=== PATIENT | female | born 1950 | race Caucasian/White ===

== ENCOUNTER 2023-11-19 18:49 | Emergency (ER) | payer MEDICARE, SELFPAY | END 2023-11-19 19:00 | disposition left against medical advice (07) | LOC: ANHED 19:38 | PROVIDERS: PCP Emergency Medicine | DX: K59.00 Constipation, unspecified (principal) | CPT/HCPCS: 99199 ==

== ENCOUNTER 2024-07-05 06:58 | Emergency (ER) | payer MEDICARE, OTHER, SELFPAY ==
--- OUTSIDE RECORDS SUMMARY | 2024-07-05 07:01 | XMS_ITS | Patient Health Record ---
Author Organization [facility] [employer] Address [address] [facility] [address] [place] [address] Care Team Providers Care Community Relations Director Name Role Phone Carlos Eduardo Chappell MD Primary Care Provider Jennifer Maral Agustin Unavailable [phone] Mario Cifuentes Unavailable [phone] Sukhwinder Hoffman Unavailable [phone] Allergies Allergen (clinical drug ingredient) Drug/Non Drug Allergy documented on EMR Reaction Allergy Type Onset Date Status ciprofloxacin Ciprofloxacin Unknown Drug Allergy Active metronidazole Metronidazole Unknown Drug Allergy Active Results Component Value Reference Range Notes UDT Reviewed date:04/09/2024 04:13:37 PM Interpretation: Performing Lab: Notes/Report: THC N 0 - 50 ng/ml Cocaine N 0 - 300 ng/ml Amphetamine N 0 - 1000 ng/ml Buprenorphine (BUP) N 0 - 10 ng/ml Secobarbital (Bar) N 0 - 300 ng/ml Oxazepam (BZO) N 0 - 300 ng/ml 7-ewactgznqv-0,3-viftrarm-9,3-diphenylpyrrolidine (MENA P) N 0 - 300 ng/ml Methamphetamine (MET) N 0 - 1000 ng/ml Methylenedioxymethamphetamine (MDMA) N 0 - 500 ng/ml Morphine (MOP 300/[id number]) N 0 - 300 ng/ml Methadone (MTD) N 0 - 300 ng/ml Phencyclidine (PCP) N 0 - 25 ng/ml Nortriptyline (TCA) N 0 - 1000 ng/ml Oxycodone N 0 - 300 ng/ml x N 0 - 300 ng/ml Reason For Referral Reason sleep disturbance. Diagnosis 1 Primary insomnia (F5 1.01) Referral Organization [facility] Referring Provider First Name Sukhwinder Referring Provider Last Name Yasmin Referred Provider Specialty Sleep Medici ne General Notes ChuckieRaoul chaudharitigre Sanchez 05/07 02:10:55 PM >patient wakes up feeling unrested. , has tried various medications., currently on zolpidem 10 mg HS, Melatonin 5 mg, diphenhydramine 25mg (2 capsules), Clonazepam 1 mg prn, patient reports she snores., patient reports she occasionally wakes up with headaches., YasminRaoultigre Sanchez 05/07/2024 02:15:29 PM >Note history of using temazepam and trazodone for sleep, which were not effective., Pamela Leslie 05/11/2024 07:39:22 AM >Referral has been sent over. Referral Priority Routine Medications Medication SIG (Take, Route, Frequency, Duration) Notes Start Date End Date Status Magnesium Glycinate Advanced 120 MG as directed Orally Active traZODone HCl 50 MG 1 tablet at bedtime Orally Once a day for 30 days 06/30/2024 Active Propranolol HCl 10 MG TAKE 1 TABLET BY MOUTH DAILY ON AN EMPTY STOMACH NEEDED Oral for 30 Days Active Escitalopram Oxalate 5 MG 1 tablet Orall y Once a day for 30 days please cut in half for the patient. Active Propranolol HCl 10 MG Oral for 90 Days Active Zolpidem Tartrate 10 MG Oral for 30 Days Active hydroCHLOROthiazide 25 MG Oral for 90 Days Active Omeprazole 20 MG 1 capsule 1/2 to 1 hour before morning meal Orally Once a day for 30 day(s) 04/09/2024 Active clonazePAM 1 MG 1 tablet Oral three times a day Active Ondansetron 4 MG 1 tablet on the tongue and allow to dissolve Orally Once a day for 30 days As needed 04/09/2024 Active Pravastatin Sodium 40 MG Oral for 90 Days Active Linzess 145 MCG 1 capsule at least 30 minutes before the first meal of the day on an empty stomach Oral Once a day for 90 days As needed Active Social History Tobacco Use: Social History Observation Description Date Details (start date - stop date) Never Smoker NA - NA Sex Assigned At : Social History Observation Description Sex Assigned At Female Household Question Answer Notes Marital status: Tobacco Control (Standard) Question Answer Notes Tobacco use: Nonsmoker AUDIT-C (Standard) Question Answer Notes Did you have a drink containing alcohol in the p ast year? No Points 0 Interpretation Negative Problems Problem Type SNOMED Code ICD Code Onset Dates Problem Status W/U Status Risk Notes Problem Moderate major depression, single episode (10531744) Major depressive disorder, single episode, moderate (F32.1) Active confirmed Problem Moderate recurrent major depression (07233597) Major depressive disorder, recurrent, moderate (F33.1) Active confirmed Problem 4198377 Primary insomnia (F51.01) Active confirmed Problem Depression Screening (861032871) Encounter for screening for depression (Z13.31) Active confirmed Problem 24002632 YOSI (generalized anxiety disorder) (F41.1) Active confirmed Vital Signs Heart Rate 59 /min 06/30/2024 Blood pressure diastolic 68 mm Hg 06/30/2024 Weight-kg 72.12 kg 06/30/2024 Blood pressure systolic 140 mm Hg 06/30/2024 Weight 159 lbs 06/30/2024 Encounters Encounter Location Date Provider Diagnosis [facility], [employer] [address] [place] [address] 04/09/2024 Maral Hinderliter YOSI (generalized anxiety disorder) F41.1 ; Primary insomnia F51.01 and Major depressive disorder, single episode, moderate F32.1 [facility], [employer] [address] [place] [address] 04/09/2024 Sukhwinder Clubb Primary insomnia F51.01 and YOSI (generalized anxiety disorder) F41.1 [facility], [facility] [place] [address] 04/14/2024 Maral Hinderliter YOSI (generalized anxiety disorder) F41.1 ; Major depressive disorder, single episode, moderate F32.1 and Primary insomnia F51.01 [facility], [facility] [place] [address] 04/14/2024 Sukhwinder Clubb Primary insomnia F51.01 and YOSI (generalized anxiety disorder) F41.1 [facility], [facility] [place] [address] 04/24/2024 Maral Hinderliter YOSI (generalized anxiety disorder) F41.1 ; Major depressive disorder, single episode, moderate F32.1 and Primary insomnia F51.01 [facility], [facility] [address] [place] [address] 05/07/2024 Sukhwinder Noguera Major depressive disorder, single episode, moderate F32.1 ; YOSI (generalized anxiety disorder) F41.1 and Primary insomnia F51.01 [facility], [place] [address] [place] [address] 05/27/2024 Sukhwinder Noguera YOSI (generalized anxiety disorder) F41.1 ; Primary insomnia F51.01 ; Encounter for screening for depression Z13.31 and Major depressive disorder, single episode, moderate F32.1 [facility], [place] [address] [place] [address] 06/03/2024 Maral Flores [facility], [place] [address] [place] [address] 06/24/2024 Maral Flores YOSI (generalized anxiety disorder) F41.1 ; Major depressive disorder, single episode, moderate F32.1 ; Primary insomnia F51.01 and Encounter for screening for depression Z13.31 [facility] [email or web address] [facility] [address] [place] [address] 06/30/2024 Mario Cifuentes Encounter for screening for cardiovascular disorders Z13.6 ; Dietary counseling and surveillance Z71.3 ; Encounter for screening for depression Z13.31 ; Nicotine use Z72.0 ; Primary insomnia F51.01 ; YOSI (generalized anxiety disorder) F41.1 and Major depressive disorder, recurrent, moderate F33.1 [facility] [employer] [facility], [place] [address] [place] [address] 04/22/2024 Sukhwinder Hoffman [facility] [email or web address] [facility] [address] [place] [address] 04/27/2024 Maral Flores [facility], [place] [address] [place] [address] 06/03/2024 Maral Flores [facility] [address] [place] [address] 06/08/2024 Maral Flores [facility] [address] [place] [address] 06/08/2024 [facility] [address] [place] [address] 05/07/2024 Maral Flores [facility] [address] [place] [address] 05/07/2024 Mraal Flores [facility], [facility] [address] [place] [address] 05/13/2024 Maral Flores [facility], [facility] [address] [place] [address] 05/22/2024 Maral Flores [facility], [facility] [address] [place] [address] 05/22/2024 Maral Flores [facility] [address] [place] [address] 05/22/2024 Maral Flores [facility], [facility] [address] [place] [address] 05/22/2024 Maral Flores [facility] [address] [place] [address] 05/22/2024 Maral Flores [facility], [facility] [address] [place] [address] 05/25/2024 Maral Flores [facility], [facility] [address] [place] [address] 05/25/2024 Maral Flores [facility] [address] [place] [address] 06/08/2024 Maral Flores [facility] [address] [place] [address] 06/08/2024 Maral Flores [facility] [address] [place] [address] 06/08/2024 Maral Flores [facility] [address] [place] [address] 06/08/2024 Maral Flores [facility] [address] [place] [address] 06/08/2024 Maral Flores [facility] [address] [place] [address] 06/22/2024 Maral Aguilaryunior [facility] [email or web address] [facility] [address] [place] [address] 06/23/2024 Maral Flores [facility] [email or web address] [facility] [address] [place] [address] 06/23/2024 Maral Flores [facility] [email or web address] [facility] [address] [place] [address] 06/23/2024 Maral Flores Assessments Encounter Date Diagnosis (ICD Code) Assessment Notes Treatment Notes Treatment Clinical Notes Section Notes 04/09/2024 Primary insomnia (ICD-10 - F51.01) Assessment and Plan: Anxiety and Depression Initiate weekly cognitive behavioral therapy sessions to address the patient's anxiety and depression, focusing on coping skills and stress management techniques. Encourage the patient to maintain a support system, including family and oriental orthodox involvement. Insomnia Discuss sleep hygiene techniques and relaxation strategies to improve the patient's sleep quality. Monitor the patient's sleep patterns. Medication Management Refer the patient to the psychiatric nurse practitioner, Sukhwinder, for a medication evaluation and potential adjustments to the current medication regimen. Chronic Pain Encourage the patient to follow up with her primary care physician for pain management and further evaluation as needed. Monitor the patient's pain levels during therapy sessions and address any impact on mental health. Spiritual Wellness Incorporate spiritual wellness into therapy sessions as appropriate, respecting the patient's [employer] idalmis. Offer a referral to a [employer] counseling agency if the patient desires a idalmis-based approach to therapy. Family Support Encourage the patient to continue utilizing her strong support system, including her , children, and grandchildren. Provide psychoeducation on anxiety and depression to help the patient's family better understand and support her needs. Follow-up: Schedule a follow-up appointment to monitor the patient's progress and continue working on the identified issues. 04/09/2024 YOSI (generalized anxiety disorder) (ICD-10 - F41.1) Assessment and Plan: Anxiety and Depression Initiate weekly cognitive behavioral therapy sessions to address the patient's anxiety and depression, focusing on coping skills and stress management techniques. Encourage the patient to maintain a support system, including family and oriental orthodox involvement. Insomnia Discuss sleep hygiene techniques and relaxation strategies to improve the patient's sleep quality. Monitor the patient's sleep patterns. Medication Management Refer the patient to the psychiatric nurse practitioner, Sukhwinder, for a medication evaluation and potential adjustments to the current medication regimen. Chronic Pain Encourage the patient to follow up with her primary care physician for pain management and further evaluation as needed. Monitor the patient's pain levels during therapy sessions and address any impact on mental health. Spiritual Wellness Incorporate spiritual wellness into therapy sessions as appropriate, respecting the patient's [employer] idalmis. Offer a referral to a [employer] counseling agency if the patient desires a idalmis-based approach to therapy. Family Support Encourage the patient to continue utilizing her strong support system, including her , children, and grandchildren. Provide psychoeducation on anxiety and depression to help the patient's family better understand and support her needs. Follow-up: Schedule a follow-up appointment to monitor the patient's progress and continue working on the identified issues. 04/09/2024 Primary insomnia (ICD-10 - F51.01) 04/09/2024 YOSI (generalized anxiety disorder) (ICD-10 - F41.1) Assessment and plan reviewed with patient Call for problems with medication, side effects or need for dosage change Compliance issues reviewed Discussed the risks/benefits of this medication Discussed medication side effects Return if symptoms worsen Treatment options reviewed. discussed that it can take weeks to see full therapeutic effects of psychotropic medications. discussed when to seek emergency services. discussed crisis prevention hotline [phone]. 04/14/2024 Major depressive disorder, single episode, moderate (ICD-10 - F32.1) Anxiety Address the patient's increased anxiety, jitteriness, and nausea since starting the new medication, noting her personal and family history of anxiety. Plan to schedule an appointment to discuss the medication's side effects and consider alternative options. Encourage the continuation of relaxation techniques like prayer and self-talk to manage anxiety. Emphasize challenging negative thoughts and focusing on positive life aspects. Nausea Acknowledge the patient's report of worsening nausea with the new medication, despite taking anti-nausea medication. Intend to discuss this issue and the medication's potential side effects at the upcoming appointment. Explore alternative medications or adjustments to the current regimen as needed. Sleep Disturbances Note the patient's experiences of night sweats without actual sweating and waking up scared, without nightmares. Plan to monitor these sleep disturbances and discuss potential medication side effects at the next appointment, considering alternative options if necessary. Adjustment Issues Recognize the patient's feelings of unsettlement and dissatisfaction with her current living situation and her consideration of moving back to [place] for family proximity. Encourage the patient to discuss these feelings with her family and weigh the moving pros and cons. Offer support and guidance in making these decisions. Social Support Highlight the patient's involvement in oriental orthodox activities and her support network through family and friends, including a close relationship with her sister who has similar anxiety struggles. Encourage continued engagement in social activities and maintaining open communication with her support network. Stress the importance of social connections in managing anxiety and overall mental health. Follow-up: Schedule a follow-up appointment to review the patient's progress and adjust the treatment plan as necessary, focusing on the issues identified. 04/14/2024 YOSI (generalized anxiety disorder) (ICD-10 - F41.1) Anxiety Address the patient's increased anxiety, jitteriness, and nausea since starting the new medication, noting her personal and family history of anxiety. Plan to schedule an appointment to discuss the medication's side effects and consider alternative options. Encourage the continuation of relaxation techniques like prayer and self-talk to manage anxiety. Emphasize challenging negative thoughts and focusing on positive life aspects. Nausea Acknowledge the patient's report of worsening nausea with the new medication, despite taking anti-nausea medication. Intend to discuss this issue and the medication's potential side effects at the upcoming appointment. Explore alternative medications or adjustments to the current regimen as needed. Sleep Disturbances Note the patient's experiences of night sweats without actual sweating and waking up scared, without nightmares. Plan to monitor these sleep disturbances and discuss potential medication side effects at the next appointment, considering alternative options if necessary. Adjustment Issues Recognize the patient's feelings of unsettlement and dissatisfaction with her current living situation and her consideration of moving back to [place] for family proximity. Encourage the patient to discuss these feelings with her family and weigh the moving pros and cons. Offer support and guidance in making these decisions. Social Support Highlight the patient's involvement in oriental orthodox activities and her support network through family and friends, including a close relationship with her sister who has similar anxiety struggles. Encourage continued engagement in social activities and maintaining open communication with her support network. Stress the importance of social connections in managing anxiety and overall mental health. Follow-up: Schedule a follow-up appointment to review the patient's progress and adjust the treatment plan as necessary, focusing on the issues identified. 04/14/2024 Primary insomnia (ICD-10 - F51.01) 04/14/2024 YOSI (generalized anxiety disorder) (ICD-10 - F41.1) Assessment and plan reviewed with patient Call for problems with medication, side effects or need for dosage change Compliance issues reviewed Discussed the risks/benefits of this medication Discussed medication side effects Return if symptoms worsen Treatment options reviewed. discussed that it can take weeks to see full therapeutic effects of psychotropic medications. discussed when to seek emergency services. discussed crisis prevention hotline [phone]. 04/24/2024 Major depressive disorder, single episode, moderate (ICD-10 - F32.1) Anxiety Continue monitoring anxiety levels and the use of medication. Encourage practicing square breathing techniques for breath regulation and calming during heightened anxiety moments. Suggest the use of cold stimuli, like holding an ice cube, to shock the senses and redirect thoughts from anxiety. Work on identifying and challenging negative thoughts, aiming to shift them towards a neutral perspective. Recommend distractions such as watching TV or listening to music to help calm and refocus thoughts. Depression Monitor symptoms of depression and ensure adherence to medication. Encourage practicing self-compassion, especially during moments of feeling overwhelmed, allowing time for information processing. Emphasize the importance of focusing on facts and challenging negative thought patterns. Blood Pressure Management Advise the patient to continue home monitoring of blood pressure and to refrain from taking propranolol if blood pressure is below 60. Plan to check the patient's blood pressure in the clinic for comparison with home readings. Sleep Disturbances Encourage establishing and maintaining a consistent sleep schedule alongside practicing good sleep hygiene. Suggest relaxation techniques, such as deep breathing exercises or calming background noise, to aid in improving sleep quality. Communication with Spouse Encourage the patient to maintain open communication with her about health concerns and symptoms, aiming to reduce anxiety and enhance preparedness for potential emergencies. Follow-up: Schedule a follow-up appointment to monitor the patient's progress and address any ongoing concerns. 04/24/2024 YOSI (generalized anxiety disorder) (ICD-10 - F41.1) Anxiety Continue monitoring anxiety levels and the use of medication. Encourage practicing square breathing techniques for breath regulation and calming during heightened anxiety moments. Suggest the use of cold stimuli, like holding an ice cube, to shock the senses and redirect thoughts from anxiety. Work on identifying and challenging negative thoughts, aiming to shift them towards a neutral perspective. Recommend distractions such as watching TV or listening to music to help calm and refocus thoughts. Depression Monitor symptoms of depression and ensure adherence to medication. Encourage practicing self-compassion, especially during moments of feeling overwhelmed, allowing time for information processing. Emphasize the importance of focusing on facts and challenging negative thought patterns. Blood Pressure Management Advise the patient to continue home monitoring of blood pressure and to refrain from taking propranolol if blood pressure is below 60. Plan to check the patient's blood pressure in the clinic for comparison with home readings. Sleep Disturbances Encourage establishing and maintaining a consistent sleep schedule alongside practicing good sleep hygiene. Suggest relaxation techniques, such as deep breathing exercises or calming background noise, to aid in improving sleep quality. Communication with Spouse Encourage the patient to maintain open communication with her about health concerns and symptoms, aiming to reduce anxiety and enhance preparedness for potential emergencies. Follow-up: Schedule a follow-up appointment to monitor the patient's progress and address any ongoing concerns. 05/07/2024 Major depressive disorder, single episode, moderate (ICD-10 - F32.1) 05/07/2024 YOSI (generalized anxiety disorder) (ICD-10 - F41.1) 05/27/2024 YOSI (generalized anxiety disorder) (ICD-10 - F41.1) 06/24/2024 Major depressive disorder, single episode, moderate (ICD-10 - F32.1) 1. Generalized Anxiety Disorder Assessment: - Patient reports experiencing increased anxiety symptoms over the past couple of weeks, including feeling like she wants to crawl out of her skin and difficulty keeping things off her mind - Expresses fear of having a nervous breakdown and requiring hospitalization - History of anxiety episodes occurring approximately every 15-20 years, with previous episodes in 2006 and 2017 - Anxiety impacting daily functioning, evidenced by reluctance to leave house or change out of pajamas unless necessary - Reports difficulty initiating exercise routines despite recognizing their potential benefits Plan: - Implement scheduled worry time technique to manage intrusive thoughts - Introduce thought stopping exercises to interrupt anxious rumination - Teach self-soothing techniques utilizing the five senses - Introduce IMPROVE technique for anxiety management - Continue current anxiety medication regimen - Transition to long-term therapy with Jemma, scheduled for July 13 2. Insomnia Assessment: - Patient reports difficulty falling asleep without medication - Sleep study has been scheduled to further evaluate sleep issues Plan: - Proceed with scheduled sleep study - Continue current sleep medication 3. Physical Health Concerns Assessment: - Reports multiple physical health issues, including constipation, hemorrhoids, arm pain (possibly arthritis), and a fatty liver diagnosis - Physical symptoms contributing to overall distress and anxiety - Expresses concern about starting a new medication for fatty liver due to potential side effects Plan: - Follow up with primary care physician next week regarding arm pain - Encourage light exercise, such as walking or using stationary bicycle, to improve physical health and mental well-being 4. Caregiver Stress Assessment: - Expresses concern for Ravi's health, who is recovering from heart issues - While Ravi is showing improvement, reports anxiety about traveling or being away from him, fearing something might happen Plan: - Continue to monitor and address caregiver stress in therapy sessions - Explore coping strategies for managing anxiety related to 's health 05/27/2024 Primary insomnia (ICD-10 - F51.01) 06/24/2024 YOSI (generalized anxiety disorder) (ICD-10 - F41.1) 1. Generalized Anxiety Disorder Assessment: - Patient reports experiencing increased anxiety symptoms over the past couple of weeks, including feeling like she wants to crawl out of her skin and difficulty keeping things off her mind - Expresses fear of having a nervous breakdown and requiring hospitalization - History of anxiety episodes occurring approximately every 15-20 years, with previous episodes in 2006 and 2017 - Anxiety impacting daily functioning, evidenced by reluctance to leave house or change out of pajamas unless necessary - Reports difficulty initiating exercise routines despite recognizing their potential benefits Plan: - Implement scheduled worry time technique to manage intrusive thoughts - Introduce thought stopping exercises to interrupt anxious rumination - Teach self-soothing techniques utilizing the five senses - Introduce IMPROVE technique for anxiety management - Continue current anxiety medication regimen - Transition to long-term therapy with Jemma, scheduled for July 13 2. Insomnia Assessment: - Patient reports difficulty falling asleep without medication - Sleep study has been scheduled to further evaluate sleep issues Plan: - Proceed with scheduled sleep study - Continue current sleep medication 3. Physical Health Concerns Assessment: - Reports multiple physical health issues, including constipation, hemorrhoids, arm pain (possibly arthritis), and a fatty liver diagnosis - Physical symptoms contributing to overall distress and anxiety - Expresses concern about starting a new medication for fatty liver due to potential side effects Plan: - Follow up with primary care physician next week regarding arm pain - Encourage light exercise, such as walking or using stationary bicycle, to improve physical health and mental well-being 4. Caregiver Stress Assessment: - Expresses concern for Ravi's health, who is recovering from heart issues - While Ravi is showing improvement, reports anxiety about traveling or being away from him, fearing something might happen Plan: - Continue to monitor and address caregiver stress in therapy sessions - Explore coping strategies for managing anxiety related to 's health 06/30/2024 Encounter for screening for cardiovascular disorders (ICD-10 - Z13.6) 06/30/2024 Dietary counseling and surveillance (ICD-10 - Z71.3) 05/27/2024 Encounter for screening for depression (ICD-10 - Z13.31) Assessment and plan reviewed with patient Call for problems with medication, side effects or need for dosage change Compliance issues reviewed Discussed the risks/benefits of this medication Discussed medication side effects Return if symptoms worsen Treatment options reviewed. discussed that it can take weeks to see full therapeutic effects of psychotropic medications. discussed when to seek emergency services. discussed crisis prevention hotline [phone]. 04/09/2024 Major depressive disorder, single episode, moderate (ICD-10 - F32.1) Assessment and Plan: Anxiety and Depression Initiate weekly cognitive behavioral therapy sessions to address the patient's anxiety and depression, focusing on coping skills and stress management techniques. Encourage the patient to maintain a support system, including family and oriental orthodox involvement. Insomnia Discuss sleep hygiene techniques and relaxation strategies to improve the patient's sleep quality. Monitor the patient's sleep patterns. Medication Management Refer the patient to the psychiatric nurse practitioner, Sukhwinder, for a medication evaluation and potential adjustments to the current medication regimen. Chronic Pain Encourage the patient to follow up with her primary care physician for pain management and further evaluation as needed. Monitor the patient's pain levels during therapy sessions and address any impact on mental health. Spiritual Wellness Incorporate spiritual wellness into therapy sessions as appropriate, respecting the patient's [employer] idalmis. Offer a referral to a [employer] counseling agency if the patient desires a idalmis-based approach to therapy. Family Support Encourage the patient to continue utilizing her strong support system, including her , children, and grandchildren. Provide psychoeducation on anxiety and depression to help the patient's family better understand and support her needs. Follow-up: Schedule a follow-up appointment to monitor the patient's progress and continue working on the identified issues. 06/24/2024 Primary insomnia (ICD-10 - F51.01) 1. Generalized Anxiety Disorder Assessment: - Patient reports experiencing increased anxiety symptoms over the past couple of weeks, including feeling like she wants to crawl out of her skin and difficulty keeping things off her mind - Expresses fear of having a nervous breakdown and requiring hospitalization - History of anxiety episodes occurring approximately every 15-20 years, with previous episodes in 2007 and 2018 - Anxiety impacting daily functioning, evidenced by reluctance to leave house or change out of pajamas unless necessary - Reports difficulty initiating exercise routines despite recognizing their potential benefits Plan: - Implement scheduled worry time technique to manage intrusive thoughts - Introduce thought stopping exercises to interrupt anxious rumination - Teach self-soothing techniques utilizing the five senses - Introduce IMPROVE technique for anxiety management - Continue current anxiety medication regimen - Transition to long-term therapy with Jemma, scheduled for July 13 2. Insomnia Assessment: - Patient reports difficulty falling asleep without medication - Sleep study has been scheduled to further evaluate sleep issues Plan: - Proceed with scheduled sleep study - Continue current sleep medication 3. Physical Health Concerns Assessment: - Reports multiple physical health issues, including constipation, hemorrhoids, arm pain (possibly arthritis), and a fatty liver diagnosis - Physical symptoms contributing to overall distress and anxiety - Expresses concern about starting a new medication for fatty liver due to potential side effects Plan: - Follow up with primary care physician next week regarding arm pain - Encourage light exercise, such as walking or using stationary bicycle, to improve physical health and mental well-being 4. Caregiver Stress Assessment: - Expresses concern for Ravi's health, who is recovering from heart issues - While Ravi is showing improvement, reports anxiety about traveling or being away from him, fearing something might happen Plan: - Continue to monitor and address caregiver stress in therapy sessions - Explore coping strategies for managing anxiety related to 's health 05/07/2024 Primary insomnia (ICD-10 - F51.01) 04/24/2024 Primary insomnia (ICD-10 - F51.01) Anxiety Continue monitoring anxiety levels and the use of medication. Encourage practicing square breathing techniques for breath regulation and calming during heightened anxiety moments. Suggest the use of cold stimuli, like holding an ice cube, to shock the senses and redirect thoughts from anxiety. Work on identifying and challenging negative thoughts, aiming to shift them towards a neutral perspective. Recommend distractions such as watching TV or listening to music to help calm and refocus thoughts. Depression Monitor symptoms of depression and ensure adherence to medication. Encourage practicing self-compassion, especially during moments of feeling overwhelmed, allowing time for information processing. Emphasize the importance of focusing on facts and challenging negative thought patterns. Blood Pressure Management Advise the patient to continue home monitoring of blood pressure and to refrain from taking propranolol if blood pressure is below 60. Plan to check the patient's blood pressure in the clinic for comparison with home readings. Sleep Disturbances Encourage establishing and maintaining a consistent sleep schedule alongside practicing good sleep hygiene. Suggest relaxation techniques, such as deep breathing exercises or calming background noise, to aid in improving sleep quality. Communication with Spouse Encourage the patient to maintain open communication with her about health concerns and symptoms, aiming to reduce anxiety and enhance preparedness for potential emergencies. Follow-up: Schedule a follow-up appointment to monitor the patient's progress and address any ongoing concerns. 04/14/2024 Primary insomnia (ICD-10 - F51.01) Anxiety Address the patient's increased anxiety, jitteriness, and nausea since starting the new medication, noting her personal and family history of anxiety. Plan to schedule an appointment to discuss the medication's side effects and consider alternative options. Encourage the continuation of relaxation techniques like prayer and self-talk to manage anxiety. Emphasize challenging negative thoughts and focusing on positive life aspects. Nausea Acknowledge the patient's report of worsening nausea with the new medication, despite taking anti-nausea medication. Intend to discuss this issue and the medication's potential side effects at the upcoming appointment. Explore alternative medications or adjustments to the current regimen as needed. Sleep Disturbances Note the patient's experiences of night sweats without actual sweating and waking up scared, without nightmares. Plan to monitor these sleep disturbances and discuss potential medication side effects at the next appointment, considering alternative options if necessary. Adjustment Issues Recognize the patient's feelings of unsettlement and dissatisfaction with her current living situation and her consideration of moving back to [place] for family proximity. Encourage the patient to discuss these feelings with her family and weigh the moving pros and cons. Offer support and guidance in making these decisions. Social Support Highlight the patient's involvement in oriental orthodox activities and her support network through family and friends, including a close relationship with her sister who has similar anxiety struggles. Encourage continued engagement in social activities and maintaining open communication with her support network. Stress the importance of social connections in managing anxiety and overall mental health. Follow-up: Schedule a follow-up appointment to review the patient's progress and adjust the treatment plan as necessary, focusing on the issues identified. 05/27/2024 Major depressive disorder, single episode, moderate (ICD-10 - F32.1) 06/24/2024 Encounter for screening for depression (ICD-10 - Z13.31) 1. Generalized Anxiety Disorder Assessment: - Patient reports experiencing increased anxiety symptoms over the past couple of weeks, including feeling like she wants to crawl out of her skin and difficulty keeping things off her mind - Expresses fear of having a nervous breakdown and requiring hospitalization - History of anxiety episodes occurring approximately every 15-20 years, with previous episodes in 2006 and 2018 - Anxiety impacting daily functioning, evidenced by reluctance to leave house or change out of pajamas unless necessary - Reports difficulty initiating exercise routines despite recognizing their potential benefits Plan: - Implement scheduled worry time technique to manage intrusive thoughts - Introduce thought stopping exercises to interrupt anxious rumination - Teach self-soothing techniques utilizing the five senses - Introduce IMPROVE technique for anxiety management - Continue current anxiety medication regimen - Transition to long-term therapy with Jemma, scheduled for July 13 2. Insomnia Assessment: - Patient reports difficulty falling asleep without medication - Sleep study has been scheduled to further evaluate sleep issues Plan: - Proceed with scheduled sleep study - Continue current sleep medication 3. Physical Health Concerns Assessment: - Reports multiple physical health issues, including constipation, hemorrhoids, arm pain (possibly arthritis), and a fatty liver diagnosis - Physical symptoms contributing to overall distress and anxiety - Expresses concern about starting a new medication for fatty liver due to potential side effects Plan: - Follow up with primary care physician next week regarding arm pain - Encourage light exercise, such as walking or using stationary bicycle, to improve physical health and mental well-being 4. Caregiver Stress Assessment: - Expresses concern for Ravi's health, who is recovering from heart issues - While Ravi is showing improvement, reports anxiety about traveling or being away from him, fearing something might happen Plan: - Continue to monitor and address caregiver stress in therapy sessions - Explore coping strategies for managing anxiety related to 's health 06/30/2024 Encounter for screening for depression (ICD-10 - Z13.31) 06/30/2024 Nicotine use (ICD-10 - Z72.0) 06/30/2024 Primary insomnia (ICD-10 - F51.01) on zolpidem by pcp 06/30/2024 YOSI (generalized anxiety disorder) (ICD-10 - F41.1) on clonazepam 1mg tid by pcp 06/30/2024 Major depressive disorder, recurrent, moderate (ICD-10 - F33.1) 04/09/2024 Other Learning About Depression Screening material was printed, Escitalopram Oral Tablet (ESCITALOPRAM - ORAL) material was published 1. Insomnia - Patient reports difficulty falling asleep and staying asleep for several months. - Plan: Encourage the use of Tylenol PM as needed for sleep. If ineffective, consider using Ambien. Recommend trying magnesium glycinate (200-400 mg) as an udfo-hte-rwailer supplement to improve sleep quality. - stop trazodone(bertram t reports she does not use) - starte magnesium glyconate 2. Anxiety and Depression - YOSI-7: 12 PHQ-9: 10 - Patient reports a history of episodic anxiety and depression, exacerbated by recent stressors including 's health issues. - Plan: Initiate escitalopram (Lexapro) 5 mg daily for long-term anxiety and depression management. Monitor for side effects and adjust the dose as needed. Schedule a follow-up appointment in one month or sooner if needed. - continue clonazepam - stop temazepam (patient reports she does not use) 3. Sleep apnea - Patient has not been tested for sleep apnea. - Plan: Consider referral to a sleep specialist if insomnia persists despite the interventions mentioned above. 04/14/2024 Other Propranolol (Cardiovascular) material was published 1. Anxiety and Jitteriness - YOSI-7: 13 - Continue clonazepam as prescribed (morning, afternoon, and before bed). - Reduce escitalopram dose to half a tablet daily.- change dose to morning. - Monitor for improvement in anxiety symptoms. - Initiate propranolol 10 mg as needed before anxiety inducing events. - Instruct patient to check heart rate before taking propranolol and avoid if heart rate is below 60 bpm. 2. Insomnia - encourage sleep hygiene. - continue current sleep aids - educated on taking escitalopram in the morning. 3. Follow-up - Schedule a follow-up to monitor progress and adjust medications as needed. - Instruct patient to call the walk-in clinic or use the liban to message the provider directly if any concerns or side effects arise. 05/07/2024 Other Assessment and plan reviewed with patient Call for problems with medication, side effects or need for dosage change Compliance issues reviewed Discussed the risks/benefits of this medication Discussed medication side effects Return if symptoms worsen Treatment options reviewed. discussed that it can take weeks to see full therapeutic effects of psychotropic medications. discussed when to seek emergency services. discussed crisis prevention hotline [phone]. Assessment and Plan: 1. Generalized Anxiety Disorder (YOSI) - YOSI-7 score: 9 - Plan: a. Continue current medications b. Monitor and reassess anxiety symptoms at follow-up appointment. c. Address significant morning anxiety and grogginess. d. continue therapy. e. continue monitoring HR and if HR is below 60 BPM hold propranolol. f. increase escitalopram to 5 mg po daily. 2. Depression - PHQ-9 score: 6 - Plan: a. Increase escitalopram to 5 mg tablets. b. Continue monitoring depressive symptoms and reassess at follow-up appointment. c. continue therapy with Maral 3. Insomnia Sleep apnea (suspected) patient wakes up feeling unrested. has tried various medications. currently on zolpidem 10 mg HS, Melatonin 5 mg, diphenhydramine 25mg (2 capsules), Clonazepam 1 mg prn patient reports she snores. patient reports she occasionally wakes up with headaches. - Plan: a. Continue current medications b. Obtain a sleep study to rule out sleep apnea. c. Note history of using temazepam and trazodone for sleep, which were not effective. 4. Recurrent bladder infections - Plan: a. Follow up with primary care provider (Dr. Lynch) if another infection occurs. b. Discuss potential causes and treatment options. 5. Medication management - Plan: a. Continue current medications as prescribed by Dr. Lynch b. increase escitalopram to 5 mg daily. 05/27/2024 Other history of hypertension, chronic kidney disease, GERD, and IBS with constipation, presents with worsening anxiety, depression, and sleep disturbances. Generalized Anxiety Disorder Assessment: Patient reports significant anxiety, rating it 8-9 out of 10 since last or Saturday. Symptoms appear to be correlated with recent stressors, including her 's recent heart attack and upcoming stent procedure. Current medications include clonazepam TID, which the patient reports helps when taken consistently. Propranolol was previously initiated for anxiety but its effectiveness is unclear. Plan: - Continue clonazepam TID as prescribed - Discontinue propranolol for 2-3 days to assess its effectiveness - Reduce escitalopram to half the current dose (patient to confirm if 2 mg or 2.5 mg) - Schedule therapy sessions with Maral until the next appointment with Jemma on 07/13/24 - Follow up with Anthony Cifuentes on 05/09/24 Major Depressive Disorder Assessment: Patient reports feeling miserable, with no desire to go anywhere or do anything. She rates her depression as 6-7, possibly 8 out of 10. The increase in depressive symptoms appears to be related to recent stressors and anxiety. Current treatment with escitalopram does not seem to be providing adequate relief. Plan: - Reduce escitalopram to half the current dose (patient reported she felt better on 2.5 mg dose) - Monitor response to medication adjustment - Encourage engagement in therapy to address underlying issues Insomnia Assessment: Patient reports difficulty sleeping, with frequent nighttime awakenings. Current sleep pattern involves going to bed around 10:30 PM, waking at 2:30 AM, returning to sleep at 4:30 AM, and having disrupted sleep from 6-7 AM. Patient is currently taking Ambien, diphenhydramine 50mg, and magnesium glycinate 100mg. Plan: - Continue Ambien as prescribed - discontinue diphenhydramine 25mg (2 tablets) at bedtime - Continue magnesium glycinate 100mg at bedtime - Discontinue melatonin - Monitor sleep pattern and response to current regimen The note is transcribed using speech recognition software. It is a reflection of a visit with the patient. It might have some inaccuracy, including medication names and transcribing errors, though efforts have been made to correct them. 06/30/2024 Other would like to try to taper off of zolpidem and clonazepam, try to avoid medication that are high risk for seniors, - antihistamines, benzodiazepines Mayelin Jovananerissa, female patient with history of recurrent depression, presenting with anxiety and sleep disturbances following her 's heart attack in August/September of the previous year. Major Depressive Disorder, recurrent Assessment: Patient reports a history of recurrent depressive episodes, with the first significant episode occurring when her son was 12 years old. The current episode appears to have been triggered by her 's heart attack last summer. Symptoms include difficulty sleeping, anxiety, and anhedonia. No current suicidal ideation reported. Patient has been prescribed escitalopram (Lexapro) but has been inconsistent with dosing due to concerns about pulse rate. Plan: - Increase escitalopram (Lexapro) to 5 mg PO daily - Advised patient can take with or without food, but consistency is important - Informed patient that propranolol (already prescribed) can help manage potential heart rate changes - Educate patient on importance of consistent daily antidepressant use for optimal effect - Follow up to assess response to increased escitalopram dose and need for further adjustment Generalized Anxiety Disorder Assessment: Patient reports increased anxiety since her 's heart attack, with symptoms including feeling jittery upon waking and difficulty managing daily activities. Currently taking clonazepam 3 times daily, which was increased from once daily after her 's heart attack. Long-term use of benzodiazepines is not recommended due to risks of dependence, tolerance, cognitive impairment, and potential association with dementia. Plan: - Initiate gradual taper of clonazepam - Educate patient on risks of long-term benzodiazepine use, including dependence, cognitive impairment, and fall risk - Discuss potential withdrawal symptoms and management strategies - Consider alternative long-term anxiety management options (e.g., SSRIs, SNRIs) - Encourage non-pharmacologi jose anxiety management techniques Insomnia Assessment: Patient reports difficulty with sleep initiation and maintenance. Currently taking zolpidem 10 mg and clonazepam at bedtime. Patient typically goes to bed around 10:30 PM, falls asleep around 11 PM, and wakes up around 7:30 AM. Reports waking up at 4:30 or 5 AM feeling jittery. Previous trial of trazodone was partially effective but did not maintain sleep throughout the night. Plan: - Discontinue zolpidem due to risk of amnesia and other side effects - Trial trazodone for sleep (dose not specified in transcript) - Advise patient to take either trazodone with clonazepam OR trazodone alone at bedtime, not to combine with zolpidem - Educate on sleep hygiene techniques - Follow up to assess efficacy of trazodone and need for dose adjustment Nausea Assessment: Patient reports occasional nausea, effectively managed with ondansetron. Plan: - Continue ondansetron as needed for nausea - Monitor for ongoing nausea and effectiveness of current management the note is transcribed using speech recognition software. It is a reflection of a visit with the patient. It might have some inaccuracy, including medication names and transcribing errors, though efforts have been made to correct them. Plan Of Treatment Next Appt Details Provider Name:Jemma Diamond Radha, 07/13/2024 03:00:00 PM, [address], [address], [place], [address], Provider Name:Mario greenwood, 07/30/2024 02:30:00 PM, [address], [address], [place], [id number], Insurance Providers Payer Name Payer Address Payer Phone Subscriber Number Group Number Insured Name Patient Relationship to Insured Coverage Start Date Coverage End Date [place] [address] [place] [phone] [id number] ROCHELLE MAYELIN Self - patient is the insured [facility] Medicare Supplement [address] [place] [phone] [id number] CARLA BYRDA Self - patient is the insured Medical (General) History Medical History History ICD Code hypertension hypercholesterolemia Cholelithiasis () GERD Asthma Recurrent biliary stones and sludge (rec ent) Surgical History Surgery Date(Month/Year) galbladder removal Partial hepatectomy ercp Cholecystectomy () Hospitalization History Reason Date(Month/Year) for surgery's
--- OUTSIDE RECORDS SUMMARY | 2024-07-05 07:01 | XMS_ITS | Referral Summary ---
Author Organization [facility] Address [address] [place] [address] Phone Care Team Providers Care Product Representative Name Role Phone Carlos Eduardo Chappell MD Primary Care Provide r Leatha Lewis MD Unavailable [phone] Heath Whitt MD Unavailable Adolfo Kilgore MD Unavailable Sukhwinder Hoffman NP Unavailable [phone] Encounters Date Type Department Care Team Description 07/01/2024 Results Follow-Up Family Care at [address] [phone] Katia Gupta NP 07/01/2024 1:45 PM CDT - 07/01/2024 11:59 PM CDT Hospital Encounter [facility] Diagnostic Imaging [address] [place] [id number] Acute pain of left shoulder Discharge Disposition: Discharge to home or self care 07/01/2024 1:15 PM CDT Office Visit Family Care at [address] [phone] Katia Gupta NP Acute pain of left shoulder (Primary Dx) 06/18/2024 Telephone Family Care at [address] [phone] Carlos Eduardo Chappell MD 04/06/2024 Telephone Family Care at [facility] [address] [place] [address] Carlos Eduardo Chappell MD Recommendation Request from Last 3 Months Allergies Active Allergy Reactions Criticality Noted Date Comments Ciprofloxacin Rash Medium 04/15/2018 Metronidazole Rash Medium 04/15/2018 Medications calcium carbonate-vitamin D3 1,500 mg (600mg elemental) -800 unit per tablet Take 1 tablet by mouth daily Active betamethasone dipropionate (DIPROLENE) 0.05 % lotion Apply topically 2 (two) times a day Active tacrolimus (PROTOPIC) 0.1 % ointment 08/28/19 22 Active clobetasoL (TEMOVATE) 0.05 % ointment APPLY TO RASH AREAS ON LEGS TWICE DAILY FOR 4 WEEKS FOR FLARES. (DO NOT APPLY TO FACE,TAKE A 2 WEEK BREAK BEFORE RESTARTING) 07/18/19 23 Active omeprazole (PriLOSEC) 20 mg capsule Take 1 capsule (20 mg total) by mouth daily 30 capsule 11 01/17/20 23 Active Additional Information Patient taking differently:20 mg oralAs needed, Reported on 02/25/2024 clindamycin-benzoy l peroxide (BENZACLIN) gel 01/11/20 23 Active triamcinolone (KENALOG) 0.5 % ointment APPLY TO RASH AREA ON LEGS TWICE WEEKLY FOR 4 WEEKS FOR FLARES.(DO NOT APPLY TO FACE) TAKE 2 WEEK BREAK BEFORE RESTARTING. 02/12/20 23 Active resmetirom 80 mg tabletIndications: Steatosis of Liver Take 80 mg by mouth daily 30 tablet 3 09/26/19 24 Active betamethasone, augmented, (DIPROLENE) 0.05 % lotion 10/10/19 24 Active lactulose solution 10 gram/15mL Take 30 mL (20 g total) by mouth daily 900 mL 2 12/05/19 24 Active pravastatin (PRAVACHOL) 40 mg tablet TAKE 1 TABLET(40 MG) BY MOUTH DAILY 90 tablet 3 02/13/20 24 Active hydroCHLOROthiazid e (HYDRODIURIL) 25 mg tablet TAKE 1 TABLET(25 MG) BY MOUTH DAILY 90 tablet 3 02/13/20 24 Active linaCLOtide (LINZESS) 145 mcg capsuleIndications :Constipation Predominant Irritable Bowel Syndrome Take 1 capsule (145 mcg total) by mouth daily 90 capsule 3 03/24/19 25 Active ondansetron ODT (ZOFRAN-ODT) 4 mg disintegrating tablet Take 1 tablet (4 mg total) by mouth every 8 (eight) hours as needed for nausea or vomiting 90 tablet 04/21/19 25 Active clonazePAM (KlonoPIN) 1 mg tablet Take 1 tablet (1 mg total) by mouth 3 (three) times a day as needed for anxiety 90 tablet 06/09/19 25 Active zolpidem (AMBIEN) 10 mg tabletIndications: Sleep-Onset Insomnia Take 1 tablet (10 mg total) by mouth nightly as needed for sleep 30 tablet 06/09/19 25 025 Active hydrocortisone (ANUSOL-HC) 2.5 % rectal cream Insert into the rectum 4 (four) times a day as needed for hemorrhoids (rectal discomfort) Apply to affected areas 30 g 3 06/19/19 25 Active escitalopram (LEXAPRO) 5 mg tablet 07/01/19 25 Active propranoloL (INDERAL) 10 mg tablet TAKE 1 TABLET BY MOUTH ONCE A DAY ON AN EMPTY STOMACH. HOLD IF HEART RATE RATE IS BELOW 60 BEATS PER MINUTES. 90 DAYS. 05/07/19 25 Active traZODone (DESYREL) 50 mg tablet 07/01/19 25 Active predniSONE (DELTASONE) 20 mg tabletIndications: Acute pain of left shoulder Take 1 tablet (20 mg) by mouth daily for 5 days 5 tablet 07/02/19 25 025 Active zolpidem (AMBIEN) 10 mg tabletIndications: Sleep-Onset Insomnia Take 1 tablet (10 mg total) by mouth nightly as needed for sleep 30 tablet 05/01/19 25 025 Discontin ued(Reord er) clonazePAM (KlonoPIN) 1 mg tablet TAKE 1 TABLET(1 MG) BY MOUTH THREE TIMES DAILY NEEDED FOR ANXIETY 90 tablet 05/13/19 25 025 Discontin ued(Reord er) Active Problems Problem Noted Date Diagnosed Date Acute pain of left shoulder 07/01/2024 Assessment & Plan (07/01/2024 2:10 PM CDT): Significant pain with decreased range of motion unable to lift arm above shoulder height unable to reach towards the back Concerns for possible tear X-ray ordered today Prednisone for 5 days, discuss side effects should this increase her anxiety she will discontinue Recommend following up with Orthopedics 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, or unspecified(403.10) 03/26/2024 Assessment & Plan (03/26/2024 4:23 PM PROJECTOR BOOTH OPERATOR): BP Readings from Last 3 Encounters: 03/26/24 125/74 02/25/24 142/75 12/16/23 127/70 Controlled/stable, continue current management Continue hydrochlorothiazide Adjustment disorder with mixed anxiety and depre ssed mood 03/26/2024 Assessment & Plan (03/26/2024 4:21 PM PROJECTOR BOOTH OPERATOR): Overall, despite the patient's significant anxiety and stress at this time, we agreed that no change in medication is needed specifically as it relates to her daytime anxiety and depression She will continue the clonazepam p.r.n. She will continue to rely on her tenriism and idalmis for support I did also provide her with the name of 1 of our [facility] Medical group psychiatrists, as the current Psychiatry referral she has is strictly related to her GI issues Insomnia due to psychological stress 03/26/2024 Assessment & Plan (03/26/2024 4:22 PM PROJECTOR BOOTH OPERATOR): Since the primary disturbance in the patient's mood right now relates to insomnia, and since she has had good success utilizing temazepam p.r.n. for sleep, I am willing to prescribe it again despite the patient already using clonazepam during the day We did have a thorough discussion of the risks of excessive sedation and even accidental overdose and from the use of multiple sedating substances The fact that the patient has no substance abuse history and has used these medications concurrently without any issues is positive If there are any issues from the insurance company or pharmacy we will do our best to appeal these I also encouraged the patient to continue to rely on sleep hygiene measures and nonpharmacologic measures to help with anxiety and sleep Hopefully they will get good news from the surgeon and she can start to put some of her concerns over her 's health behind her Constipation, unspecified constipation type 11/09 Irritable bowel syndrome with constipation 12/25 Assessment & Plan (03/26/2024 4:16 PM PROJECTOR BOOTH OPERATOR): Controlled/stable, continue current management Await upcoming evaluation by mental health professional/psychiatry Continue current medical treatment including Linzess Abdominal pain, chronic, epigastric 06/05/2021 Assessment & Plan (06/19/2021 8:33 AM CDT): Dr. Cancino Gastroenterology-referring to GI appointment October [address]- Postoperative changes of cholecystectomy with increased pneumobilia and common bile duct dilatation without an associated obstructing mass likely secondary to reservoir effect and ampullary procedure. Recommend correlation with liver function tests and continued attention on follow-up imaging. Common bile duct stone 08/12/2020 Overview (08/12/2020): Added automatically from request for surgery [id number] Abdominal pain 07/11/2020 Common bile duct dilation 07/11/2020 Assessment & Plan (03/26/2024 4:17 PM PROJECTOR BOOTH OPERATOR): Thus far this has been a benign issue for the patient other than the acute gallbladder issues She will continue to follow up closely with GI for ongoing evaluation and treatment recommendations Hyperlipidemia 07/11/2020 Assessment & Plan (03/26/2024 4:16 PM PROJECTOR BOOTH OPERATOR): Continue statin therapy Gastroesophageal reflux dise ase with esophagitis without hemorrhage 07/07/2020 Overview (07/07/2020): Added automatically from request for surgery [id number] Assessment & Plan (03/26/2024 4:16 PM PROJECTOR BOOTH OPERATOR): Controlled/stable, continue current management Continue PPI therapy Follow up with GI CKD (chronic kidney disease) stage 2, GFR 60-89 ml/min 02/18/2020 Assessment & Plan (03/26/2024 4:17 PM PROJECTOR BOOTH OPERATOR): Stable, monitor Hypertension 04/15/2018 Resolved Problems Problem Noted Date Diagnosed Date Resolved Date Moderate episode of recurren t major depressive disorder 08/30/2022 03/26/2024 Depression 07/31/2021 03/26/2024 Generalized anxiety disorder 07/31/2021 03/26/[address] scan of lung 05/30/202106/2023 Overview (05/30/2021): Nonspecific nodular pleural thickening May 2021 - recommend repeat in 3-6 months Septic shock 07/11/2020 09/15/2020 Transaminitis 07/11/2020 09/15/2020 Hyperbilirubinemia 07/11/2020 Acute kidney injury superimp osed on chronic kidney disease 07/11/2020 09/15/2020 Anxiety 07/11/2020 09/15/2020 Cholangitis 07/10/2020 09/15/2020 Overview (07/11/2020): Added automatically from request for surgery [id number] Encounter for screening colonoscopy 07/07/2020 09/15/2020 Overview (07/07/2020): Added automatically from request for surgery [id number] Elevated liver enzymes 09/05/201909/15 Overview (09/05/2019): Found during ED visit 08/30/2019 - CT scan negative, needs repeat labs for monitoring Essential tremor 04/15/2018 03/26/2024 Anxiety and depression 04/15/201803/26 Assessment & Plan (06/19/2021 8:32 AM CDT): -Local counselors list was printed at todays visit -significant generalized anxiety, continues her clonazepam t.i.d. as needed -it is unclear what her daily depression anxiety medication is she will check at home and notify our office she has Cymbalta and Celexa on her list Immunizations Immunization Administration Dates Next Due Influenza, Quadrivalent, Hig h Dose, Preservative Free, Intrr 01/18/2022 Influenza, Quadrivalent, Spl it, Preservative Free, Intramuscular 03/14/2023,02/20/2021,02/17/2020,02/13,04/15/2018 Influenza, Trivalent, High D ose, Split, Preservative Free, Intramuscular 12/02/2023,12/09/2014 Influenza, Trivalent, IM (MDV) 4,12/18/2012,12/18/2012,12/17,02/14/2011,12/16/2008,01/21/2008 ,01/20/2008 Influenza, Unspecified 12/09/2016 Pneumococcal Conjugate PCV 13 02/16/2016 Pneumococcal Conjugate Pcv20 07/03/2022 Pneumococcal Polysaccharide PPV23 06/03/2014 Tdap 07/03/2022,12/10/2007 ZOSTER LIVE 05/02/2009 ZOSTER Recombinant 04/19/2022,02/04/2022 Social History Tobacco Use Types Packs/Day Years Used Date Smoking Tobacco: Never Smokeless Tobacco: Never Tobacco Cessation:Counseling Given: Not Answered Alcohol Use Standard Drinks/Week Comments Never 0 (1 standard drink = 0.6 oz pur e alcohol) Social Connection and Isolat ion Panel [NHANES] Answer Date Recorded In a typical week, how many times do you talk on the phone with family, friends, or neighbors? More than three times a week 11/21/2023 How often do you get togethe r with friends or relatives? More than three times a week 11/21/2023 How often do you attend [facility] or [facility] services? More than 4 times per year 11/21/2023 Do you belong to any clubs o r organizations such as tenriism groups, unions, fraternal or athletic groups, or school groups? No 11/21/2023 How often do you attend meet ings of the clubs or organizations you belong to? More than 4 times per year 11/21/2023 Are you , , di vorced, , never , or living with a partner? 11/21/2023 AUDIT-C Answer Date Recorded Q1: How often do you have a drink containing alc ohol? Never 03/17/2021 Average Number of Drinks Not on file 022 Frequency of Binge Drinking Not on file 09/2021 Overall Financial Resource Strain (CARDIA) Answe r Date Recorded How hard is it for you to pa y for the very basics like food, housing, medical care, and heating? Not very hard 11/21/2023 PHQ-2 Answer Date Recorded PHQ-2 Total Score (If total score is 3 or more points, staff should administer the PHQ-9) 0 07/01/2024 PRAPARE - Transportation Answer Date Re corded In the past 12 months, has l ack of transportation kept you from medical appointments or from getting medications? No 11/09 In the past 12 months, has l ack of transportation kept you from meetings, work, or from getting things needed for daily living? No 11/21/2023 Housing Stability Vital Sign Answer Yohannes e Recorded In the last 12 months, was t here a time when you were not able to pay the mortgage or rent on time? No 07/18/2020 In the last 12 months, how many places have you lived? 1 07/18/2020 In the last 12 months, was t here a time when you did not have a steady place to sleep or slept in a penitentiary (including now)? No 07/18/2020 Personal Safety Answer Date Recorded Have you ever been in or are you currently in a harmful physical or emotional relationship or is someone making you feel afraid or unsafe? Denies 12/11/2023 Comments No Sex and Gender Information Value Date Recorded Sex Assigned at Not on file Legal Sex Female 12:59 AM PROJECTOR BOOTH OPERATOR Gender Identity Not on file Sexual Orientation Not on file Last Filed Vital Signs Vital Sign Reading Time Taken Comments Blood Pressure 124/78 07/01/2024 1:08 PM CDT Pulse 54 07/01/2024 1:08 PM CDT Temperature 36.8 C (98.2 F) 02/25/2024 12:31 PM PROJECTOR BOOTH OPERATOR Respiratory Rate 18 12/16/2023 3:49 PM CDT Oxygen Saturation 96% 07/01/2024 1:08 PM CDT Inhaled Oxygen Concentration - - Weight 72.1 kg (159 lb) 07/01/2024 1:08 PM CDT Height 165.1 cm (5' 5 ) 07/01/2024 1:08 PM CDT Body Mass Index 26.46 07/01/2024 1:08 PM CDT Plan of Treatment Not on file Medical Devices Implanted Type Area Trimmer Sorter Device Identifier Shelf Expiration Date Model / Serial / Lot [employer] Abi [id number] Wallflex Permalume 10mm 8.5fr 60mm 194cm Fully Cover Catheter - [id number] Implanted:Qty: 1 on 07/11/2020 by Carlo Cancino MD at [facility] [employer] 05/30/2022 [id number] / / [id number] Procedures Procedure Name Priority Date/Time Associated Diagnosis Comments XR SHOULDER LEFT 2 OR MORE VIEWS Schedule Routine, Read Routine (OP Routine) 07/01/2024 2:14 PM CDT Acute pain of left shoulder HEPATITIS C ANTIBODY Routine 07/17/2023 11:28 AM CDT Abdominal pain Nausea SCREENING MAMMOGRAM BILATERAL W DMITRY Schedule Routine, Read Routine (OP Routine) 03/21/2023 12:56 PM PROJECTOR BOOTH OPERATOR Encounter for screening mammogram for malignant neoplasm of breast DEXA AXIAL SKELETON BONE DENSITY 1 OR MORE SITES Schedule Routine, Read Routine (OP Routine) 03/06/2022 1:16 PM PROJECTOR BOOTH OPERATOR Asymptomatic menopausal state COLONOSCOPY 09/14/2020 9:31 AM CDT from Last 3 Months or Most Recently Relevant to Health Maintenance Results * XR Shoulder Left 2+ Vw (07/01/2024 2:14 PM CDT) Anatomical Region Laterality Modality Upper Extremities, Shoulder Left Comp uted Radiography 07/01/2024 2:15 PM CDT Impressions 07/01/2024 2:15 PM CDT Degeneration glenohumeral joint Electronically signed by: Wesley Moody M.D. Narrative 07/01/2024 2:15 PM CDT EXAMINATION: XR SHOULDER LEFT 2 OR MORE VIEWS HISTORY: Shoulder pain FINDINGS: Degenerative changes at the glenohumeral joint without fracture or dislocation. Normal AC joint. No soft tissue calcifications Procedure Note Wesley Moody MD - 07/01/2024 EXAMINATION: XR SHOULDER LEFT 2 OR MORE VIEWS HISTORY: Shoulder pain FINDINGS: Degenerative changes at the glenohumeral joint without fracture or dislocation. Normal AC joint. No soft tissue calcifications IMPRESSION: Degeneration glenohumeral joint Electronically signed by: Wesley Moody M.D. Katia Gupta BUTTON TUFTING MACHINE OPERATOR IMG XR PROCEDURES Final Res ult * Hepatitis C antibody Blood (07/17/2023 11:28 AM CDT) Hep C Ab Nonreactive Nonreactive Comment: Interpretive Data Nonreactive: Antibodies to HCV not detected. Does NOT exclude the possibility of recent exposure to HCV. Equivocal: Equivocal for HCV antibodies. Supplemental molecular testing will be automatically performed to determine infection status in accordance with current CDC screening recommendations. Reactive: Positive for HCV antibodies. This may represent current or past HCV infection. Supplemental molecular testing will be automatically performed to determine current infection status in accordance with current CDC screening recommendations. Interpretive data was last revised on 2019. Blood 07/17/2023 11:2 8 AM CDT 07/17/2023 12:36 PM CDT Leatha Lewis MD LAB MICROBIOLOGY - [facility] ORDERABLES [place] - [place] [id number] [place] [address] * SCREENING MAMMOGRAM BILATERAL W DMITRY (03/21/2023 12:56 PM PROJECTOR BOOTH OPERATOR) Anatomical Region Laterality Modality Breast Bilateral Mammography 03/21/2023 1:26 PM PROJECTOR BOOTH OPERATOR Impressions 03/21/2023 1:26 PM PROJECTOR BOOTH OPERATOR No evidence of malignancy in either breast. FINAL ASSESSMENT: BI-RADS Category 1: Negative. RECOMMENDATION: Recommend return for annual screening mammogram in 12 months. Electronically signed by: ALFREDA PRIEST MD Narrative 03/21/2023 1:26 PM PROJECTOR BOOTH OPERATOR EXAMINATION: BILATERAL SCREENING MAMMOGRAM COMPARISON: Multiple prior studies, most recently 04/12/2021 and dating back to 2018. TECHNIQUE: Full-field 2D and digital breast tomosynthesis (DBT) images were obtained. CAD was utilized. BREAST PARENCHYMAL COMPOSITION: There are scattered areas of fibroglandular density. FINDINGS: There is no suspicious mass, calcification, or distortion in either breast. us Carlos Eduardo Chappell MD IMG MAMMO PROCEDURES Final Result * Dexa Axial Skeleton Bone Density 1 or 2 Site (03/06/2022 1:16 PM PROJECTOR BOOTH OPERATOR) Anatomical Region Laterality Modality Body N/A Digital Radiogra phy 03/06/2022 1:37 PM PROJECTOR BOOTH OPERATOR Impressions 03/06/2022 2:14 PM PROJECTOR BOOTH OPERATOR 1. The bone mineral density of the lumbar spine is normal. 2. The bone mineral density of the left femoral neck is mildly decreased. 3. The bone mineral density of the left total hip is mildly decreased. 4. Overall, the above findings are diagnostic of low bone mass (osteopenia) by WHO criteria. 5. Based on the FRAX fracture risk model, the 10-year probability for major osteoporotic fracture is 15% and that for hip fracture is 4.8%. This 10-year fracture risk estimate was calculated using the risk factors noted in the history above, along with the femoral neck bone density. FRAX is intended to help guide treatment decisions in men over age 50 and postmenopausal women with low bone mass (osteopenia). The National Osteoporosis Foundation (NOF) recommends that FDA-approved medical therapies be considered in postmenopausal women and men age 50 years and older with osteoporosis and those with low bone mass whose 10-year fracture probability by FRAX is >= 20% for major osteoporotic fracture or >= 3% for hip fracture. However, all treatment decisions require clinical judgment and consideration of individual patient factors, including patient preferences, comorbidities, previous drug use, risk factors not captured in the FRAX model (e.g., frailty, falls, vitamin D deficiency, increased bone turnover, interval significant decline in bone density) and possible under- or overestimation of fracture risk by FRAX. General comments regarding interpretation of bone density measurements: A) In children, premenopausal woman and males under age 50 not at increased risk for fractures only Z-scores, not T-scores are used to indicate risk. A Z-score above -2.0 is defined as within the expected range for age and Z-score at or less than -2.0 is below the expected range for age . A Z-score below the expected range for age in a patient with recent fractures and/or chronic corticosteroid treatment is consistent with a diagnosis of osteoporosis. B) In post menopausal women and males over 50, comparison of the measured bone mineral density with the average value in young normal subjects (the T-score ) has been found to be useful in assessing fracture risk. Fracture risk approximately doubles for each 1.0 standard deviation (SD) in individual's hip or spine bone mineral density is below the average value of young normal subjects. The World Health Organization (WHO) has defined T-scores of -1.0 to -2.5 as diagnostic of low bone mass (OSTEOPENIA), and T-scores of -2.5 or lower to be diagnostic of OSTEOPOROSIS, based on the site of lowest bone density. Note that there will be a change in reporting format and reference databases as patients move from the younger population (group A) to the older population (group B) The National Osteoporosis Foundation (www.nof.org) recommends adequate intake of calcium and vitamin D and regular weight-bearing exercise in all patients. They recommend pharmacologic treatment in postmenopausal women and men age 50 and older presenting with any of the followin) Osteoporosis, after appropriate evaluation to exclude secondary causes. 2) A hip or vertebral (clinical or radiographic) fracture, regardless of the bone density. 3) Low bone mass (Osteopenia) and one or more of: other prior fractures, secondary causes associated with high risk of fracture (such as glucocorticoid use or total immobilization), or computed high risk of fracture (10-yr probability of hip fracture >= 3% or a 10-yr probability of any major osteoporosis-related fracture >= 20% based on the [place].-adapted WHO algorithm), available at http://www.shef.ac.uk/FRAX). Dictated by: Ashok Tanner M.D. The radiology attending physician has personally reviewed this study, and had reviewed and/or edited this written report and agrees with it. Electronically signed by: Talat Goldman M.D. Narrative 03/06/2022 2:14 PM PROJECTOR BOOTH OPERATOR BONE DENSITOMETRY OF THE SPINE AND HIP DATE OF STUDY: 03/06/2022 HISTORY: 71-year-old postmenopausal woman without pertinent medical history. She is being treated with calcium supplementation. Evaluate bone mineral density. Additional risk factors for fracture: parental fracture. FINDINGS (SPINE): The bone mineral density of L1-L4 was assessed by dual-energy x-ray absorptiometry. The average bone mineral density within this region is 0.988 gm/sq-cm. This is 1.8 standard deviations above the mean of the average bone mineral density for age- and gender-matched subjects (the Z-score). It is 0.5 standard deviations below the mean peak bone mineral density in young adults (the T-score). FINDINGS (FEMORAL NECK): The bone mineral density of the left femoral neck was assessed by dual-energy x-ray absorptiometry. The average bone mineral density within the femoral neck region is 0.730 gm/sq-cm. This is 0.9 standard deviations above the mean of the average bone mineral density for age- and gender-matched subjects (the Z-score). It is 1.1 standard deviations below the mean peak bone mineral density in young adults (the T-score). FINDINGS (TOTAL HIP): The bone mineral density of the left hip was assessed by dual-energy x-ray absorptiometry. The average bone mineral density within the total hip region is 0.770 gm/sq-cm. This is 0.3 standard deviations above the mean of the average bone mineral density for age- and gender-matched subjects (the Z-score). It is 1.4 standard deviations below the mean peak bone mineral density in young adults (the T-score). SUMMARY OF CURRENT RESULTS: Region BMD T-score Z-score AP Spine (L1-L4) 0.988 -0.5 1.8 Femoral Neck (Left) 0.730 -1.1 0.9 Total Hip (Left) 0.770 -1.4 0.3 Procedure Note Talat Goldman MD - 03/06/2022 BONE DENSITOMETRY OF THE SPINE AND HIP DATE OF STUDY: 03/06/2022 HISTORY: 71-year-old postmenopausal woman without pertinent medical history. She is being treated with calcium supplementation. Evaluate bone mineral density. Additional risk factors for fracture: parental fracture. FINDINGS (SPINE): The bone mineral density of L1-L4 was assessed by dual-energy x-ray absorptiometry. The average bone mineral density within this region is 0.988 gm/sq-cm. This is 1.8 standard deviations above the mean of the average bone mineral density for age- and gender-matched subjects (the Z-score). It is 0.5 standard deviations below the mean peak bone mineral density in young adults (the T-score). FINDINGS (FEMORAL NECK): The bone mineral density of the left femoral neck was assessed by dual-energy x-ray absorptiometry. The average bone mineral density within the femoral neck region is 0.730 gm/sq-cm. This is 0.9 standard deviations above the mean of the average bone mineral density for age- and gender-matched subjects (the Z-score). It is 1.1 standard deviations below the mean peak bone mineral density in young adults (the T-score). FINDINGS (TOTAL HIP): The bone mineral density of the left hip was assessed by dual-energy x-ray absorptiometry. The average bone mineral density within the total hip region is 0.770 gm/sq-cm. This is 0.3 standard deviations above the mean of the average bone mineral density for age- and gender-matched subjects (the Z-score). It is 1.4 standard deviations below the mean peak bone mineral density in young adults (the T-score). SUMMARY OF CURRENT RESULTS: Region BMD T-score Z-score AP Spine (L1-L4) 0.988 -0.5 1.8 Femoral Neck (Left) 0.730 -1.1 0.9 Total Hip (Left) 0.770 -1.4 0.3 IMPRESSION: 1. The bone mineral density of the lumbar spine is normal. 2. The bone mineral density of the left femoral neck is mildly decreased. 3. The bone mineral density of the left total hip is mildly decreased. 4. Overall, the above findings are diagnostic of low bone mass (osteopenia) by WHO criteria. 5. Based on the FRAX fracture risk model, the 10-year probability for major osteoporotic fracture is 15% and that for hip fracture is 4.8%. This 10-year fracture risk estimate was calculated using the risk factors noted in the history above, along with the femoral neck bone density. FRAX is intended to help guide treatment decisions in men over age 50 and postmenopausal women with low bone mass (osteopenia). The National Osteoporosis Foundation (NOF) recommends that FDA-approved medical therapies be considered in postmenopausal women and men age 50 years and older with osteoporosis and those with low bone mass whose 10-year fracture probability by FRAX is >= 20% for major osteoporotic fracture or >= 3% for hip fracture. However, all treatment decisions require clinical judgment and consideration of individual patient factors, including patient preferences, comorbidities, previous drug use, risk factors not captured in the FRAX model (e.g., frailty, falls, vitamin D deficiency, increased bone turnover, interval significant decline in bone density) and possible under- or overestimation of fracture risk by FRAX. General comments regarding interpretation of bone density measurements: A) In children, premenopausal woman and males under age 50 not at increased risk for fractures only Z-scores, not T-scores are used to indicate risk. A Z-score above -2.0 is defined as within the expected range for age and Z-score at or less than -2.0 is below the expected range for age . A Z-score below the expected range for age in a patient with recent fractures and/or chronic corticosteroid treatment is consistent with a diagnosis of osteoporosis. B) In post menopausal women and males over 50, comparison of the measured bone mineral density with the average value in young normal subjects (the T-score ) has been found to be useful in assessing fracture risk. Fracture risk approximately doubles for each 1.0 standard deviation (SD) in individual's hip or spine bone mineral density is below the average value of young normal subjects. The World Health Organization (WHO) has defined T-scores of -1.0 to -2.5 as diagnostic of low bone mass (OSTEOPENIA), and T-scores of -2.5 or lower to be diagnostic of OSTEOPOROSIS, based on the site of lowest bone density. Note that there will be a change in reporting format and reference databases as patients move from the younger population (group A) to the older population (group B) The National Osteoporosis Foundation (www.nof.org) recommends adequate intake of calcium and vitamin D and regular weight-bearing exercise in all patients. They recommend pharmacologic treatment in postmenopausal women and men age 50 and older presenting with any of the followin) Osteoporosis, after appropriate evaluation to exclude secondary causes. 2) A hip or vertebral (clinical or radiographic) fracture, regardless of the bone density. 3) Low bone mass (Osteopenia) and one or more of: other prior fractures, secondary causes associated with high risk of fracture (such as glucocorticoid use or total immobilization), or computed high risk of fracture (10-yr probability of hip fracture >= 3% or a 10-yr probability of any major osteoporosis-related fracture >= 20% based on the [place].-adapted WHO algorithm), available at http://www.shef.ac.uk/FRAX). Dictated by: Ashok Tanner M.D. The radiology attending physician has personally reviewed this study, and had reviewed and/or edited this written report and agrees with it. Electronically signed by: Talat Goldman M.D. Carlos Eduardo Chappell MD IMG DXA PROCEDURES Fi nal Result * COLONOSCOPY (09/14/2020 9:31 AM CDT) Anatomical Region Laterality Modality Other Narrative Procedure Note Carlo Cancino MD - 09/14/2020 9:31 AM CDT [facility] Endoscopy Lab Patient Name: Mayelin Mcdaniel Procedure Date: 09/14/2020 9:31 AM Date of : 1950 Admit Type: Outpatient Age: 70 Gender: Female Note Status: Finalized Attending MD: Carlo Cancino M.D. Procedure Date: 09/14/2020 Procedure: Colonoscopy Indications: High risk colon cancer surveillance: Personalhistory of colonic polyps Patient Profile: This is a 70 year old female. Father with coloncancer at age 80. Providers: Carlo Cancino M.D., PERLA Barajas(Anesthesia Staff), Gianni Lucero RN, Mer Herrera, Signs And Displays Sales Representative Referring MD: Carlos Eduardo Chappell M.D. Medicines: Monitored Anesthesia Care Complications: No immediate complications. Estimated Blood Loss: Estimated blood loss was minimal. Procedure: Pre-Anesthesia Assessment: - ASA Grade Assessment: II - A patient with mild systemic disease. - The risks and benefits of the procedure and the sedation options and risks were discussed with the patient. All questions were answered and informed consent was obtained. After I obtained informed consent, the scope was passed under direct vision. Throughout theprocedure, the patient's blood pressure, pulse, and oxygen saturations were monitored continuously. The scopewas passed under direct vision. The Colonoscope was introduced through the anus and advanced to the the cecum, identified by appendiceal orifice andileocecal valve. The colonoscopy was performed without difficulty. The patient tolerated the procedurewell. The quality of the bowel preparation was evaluated using the BBPS ([place] Bowel Preparation Scale)with scores of: Right Colon = 3, Transverse Colon = 3and Left Colon = 3 (entire mucosa seen well with no residual staining, small fragments of stool oropaque liquid). The total BBPS score equals 9. The qualityof the bowel preparation was good. The bowelpreparation used was SUPREP via split dose instruction. Bowelprep was administered using a split dose. Findings: The perianal and digital rectal examinations were normal. Scattered small and large-mouthed diverticula were found in thesigmoid colon and ascending colon. There was no evidence of diverticular bleeding. A 5 mm polyp was found in the sigmoid colon. The polyp was sessile.The polyp was removed with a jumbo cold forceps. Resection and retrieval were complete. A 8 mm polyp was found in the sigmoid colon. The polyp was sessile.The polyp was removed with a cold snare. Resection and retrieval were complete. To prevent bleeding post-intervention, one hemostatic clipwas successfully placed (MR conditional). There was no bleeding at theend of the procedure. The retroflexed view of the distal rectum and anal verge was normaland showed no anal or rectal abnormalities. Impression: - Diverticulosis in the sigmoid colon and in the ascending colon. There was no evidence ofdiverticular bleeding. - One 5 mm polyp in the sigmoid colon, removed witha jumbo cold forceps. Resected and retrieved. - One 8 mm polyp in the sigmoid colon, removed witha cold snare. Resected and retrieved. Clip (MR conditional) was placed. - The distal rectum and anal verge are normal on retroflexion view. Recommendation: - Discharge patient to home. - Await pathology results. - Repeat colonoscopy in 5 years for surveillance. Procedure Code(s): --- Professional --- 26624, Colonoscopy, flexible; with removal of tumor(s), polyp(s), or other lesion(s) by snare technique 06168, 59, Colonoscopy, flexible; with biopsy,single or multiple CPT copyright 2019 [employer]. All rights reserved. The codes documented in this report are preliminary and upon film sorter reviewmay be revised to meet current compliance requirements. Electronically signed by Carlo Cancino MD Carlo Cancino M.D. 09/14/2020 10:10:51 AM Number of Addenda: 0 Note Initiated On: 09/14/2020 9:31 AM Carlo Cancino MD ENDOSCOPY PROCEDURES Final Re sult from Last 3 Months or Most Recently Relevant to Health Maintenance Insurance MEDICARE [facility] [place] [id number] MEDICARE [facility] MEDICARE [employer] [facility] MEDICARE Advance Directives For more information, please contact: [phone] * Full Code (Latest Code Status on File) Date Activated Date Inactivated Comments 12/11/2023 9:06 AM 12/11/2023 3:32 PM * Full Code Date Activated Date Inactivated Comments 11/20/2023 7:08 AM 11/21/2023 10:35 PM * Full Code Date Activated Date Inactivated Comments 07/11/2020 6:20 AM 07/15/2020 5:07 PM Care Teams Product Representative Relationship Specialty Start [place] [address] [address] [facility] [address] [place] [address] PCP - General Family Medicine 04/15/18 Leatha Lewis MD [address] DIV IM GASTROENTEROLOGY, [facility] [address] [place] [address] Referring Physician Gastroenterology 11/09/21 [place] [address] [address] [facility] [address] [place] [address] Consulting Physician Psychiatry 02/27/22 Adolfo Kilgore MD [address] DIV IM BONE MARROW TRANSPLANT, [address] [place] [address] Consulting Physician Medical Oncology 03/07/22 Sukhwinder Hoffman, BUTTON TUFTING MACHINE OPERATOR [address] [facility] [address] [place] [address] Nurse Practitioner Psychiatry 05/07/24
--- OUTSIDE RECORDS SUMMARY | 2024-07-05 07:01 | XMS_ITS | Encounter Summary ---
Author Organization [facility] Healthcare Address [address] [place] [address] Care Team Providers Care Return To Vendor Name Role Phone Carlos Eduardo Chappell MD Primary Care Provide r Leatha Lewis MD Unavailable [phone] Heath Whitt MD Unavailable [phone] Adolfo Kilgore MD Unavailable Sukhwinder Hoffman NP Unavailable [phone] Encounter Details Date Type Department Care Team (Late st Contact Info) Description 07/01/2024 Results Follow-Up Family Care at [facility] [address] [id number] [place] [address] [address] Social History Tobacco Use Types Packs/Day Years Used Date Smoking Tobacco: Never Smokeless Tobacco: Never Alcohol Use Standard Drinks/Week Comments Never 0 [...] week 11/21/2023 How often do you attend chur ch or protestant services? More than 4 times per year 11/21/2023 Do you belong to any clubs o r organizations such as congregation groups, unions, fraternal or athletic groups, or [...] place to sleep or slept in a long-term (including now)? No 07/18/2020 Personal Safety Answer Date Recorded Have you ever been in or are you currently in a harmful physical or emotional relationship or is someone making you feel afraid or unsafe? 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 Gender Identity Not on file Sexual Orientation Not on file documented as of this encounter Plan of Treatment Not on file documented as of this encounter Visit Diagnoses Not on filedocumented in this encounter Care Teams Return To Vendor Relationship Specialty Start Date [place] [address] [address] [facility] [address] [place] [address] PCP - General Family Medicine 04/15/18 Leatha Lewis MD [address] DIV IM GASTROENTEROLOGY, [facility] [address] [place] [address] Referring Physician Gastroenterology 11/09/21 [place] [address] [facility] [address] [place] [address] Consulting Physician Psychiatry 02/27/22 Adolfo Kilgore MD [address] DIV IM BONE MARROW TRANSPLANT, [address] [place] [address] Consulting Physician Medical Oncology 03/07/22 Sukhwinder Hoffman, PALEOLOGIST [address] [facility] [address] [place] [address] Nurse Practitioner Psychiatry 05/07/24 documented as of this encounter
--- OUTSIDE RECORDS SUMMARY | 2024-07-05 07:01 | XMS_ITS | Clinical Summary ---
Author Organization [facility] Address [address] [address] [place] [address] Phone Care Team Providers Care Assembly Technician Name Role Phone Carlos Eduardo Chappell MD Primary Care Provide r Leatha Lewis MD Unavailable [phone] Heath Whitt MD Unavailable [phone] Adolfo Kilgore MD Unavailable Sukhwinder Hoffman NP Unavailable [phone] Allergies Active Allergy Reactions Criticality Noted Date [...] 03/26/2024 Assessment & Plan (03/26/2024 4:23 PM TRAINING DEVELOPMENT MANAGER): BP Readings from Last 3 Encounters: 03/26/24 125/74 02/25/24 142/75 12/16/23 127/70 Controlled/stable, continue current management Continue hydrochlorothiazide Adjustment disorder with mixed anxiety and depre ssed mood 03/26/2024 Assessment & Plan (03/26/2024 4:21 PM TRAINING DEVELOPMENT MANAGER): Overall, despite the patient's significant anxiety and stress at this time, we agreed that no change in medication is needed specifically as it relates to her daytime anxiety and depression She will continue the clonazepam p.r.n. She will continue to rely on her spiritism and idalmis for support I did also provide her with the name of 1 of our [facility] psychiatrists, as the current Psychiatry referral she has is strictly related to her GI issues Insomnia due to psychological stress 03/26/2024 Assessment & Plan (03/26/2024 4:22 PM TRAINING DEVELOPMENT MANAGER): Since the primary disturbance in the patient's [...] 12/25 Assessment & Plan (03/26/2024 4:16 PM TRAINING DEVELOPMENT MANAGER): Controlled/stable, continue current management Await upcoming evaluation by mental health professional/psychiatry Continue current medical treatment including Linzess Abdominal pain, chronic, epigastric 06/05/2021 Assessment & Plan (06/19/2021 8:33 AM CDT): Dr. Cancino Gastroenterology-referring to [facility] appointment October [address]- Postoperative changes of cholecystectomy with increased pneumobilia and common bile duct dilatation without an associated obstructing mass likely secondary to reservoir effect and ampullary procedure. Recommend correlation with liver function tests and continued attention on follow-up imaging. Common bile duct stone 08/12/2020 Overview (08/12/2020): Added automatically from request for surgery [id number] Abdominal pain 07/11/2020 Common bile duct dilation 07/11/2020 Assessment & Plan (03/26/2024 4:17 PM TRAINING DEVELOPMENT MANAGER): Thus far this has been a benign issue for the patient other than the acute gallbladder issues She will continue to follow up closely with GI for ongoing evaluation and treatment recommendations Hyperlipidemia 07/11/2020 Assessment & Plan (03/26/2024 4:16 PM TRAINING DEVELOPMENT MANAGER): Continue statin therapy Gastroesophageal reflux dise ase with esophagitis without hemorrhage 07/07/2020 Overview (07/07/2020): Added automatically from request for surgery [id number] Assessment & Plan (03/26/2024 4:16 PM TRAINING DEVELOPMENT MANAGER): Controlled/stable, continue current management Continue PPI therapy Follow up with GI CKD (chronic kidney disease) stage 2, GFR 60-89 ml/min 02/18/2020 Assessment & Plan (03/26/2024 4:17 PM TRAINING DEVELOPMENT MANAGER): Stable, monitor Hypertension 04/15/2018 Resolved Problems Problem [...] (07/11/2020): Added automatically from request for surgery [id number] Encounter for screening colonoscopy 07/07/2020 09/15/2020 Overview (07/07/2020): Added automatically from request for surgery [id number] Elevated liver enzymes 09/05/201909/15 Overview (09/05/2019): Found [...] has Cymbalta and Celexa on her list Encounters Date Type Department Care Team Description 07/01/2024 1:45 PM CDT - 07/01/2024 11:59 PM CDT Hospital Encounter [facility] [address] [place] [id number] Acute pain of left shoulder Discharge Disposition: Discharge to home or self care 07/01/2024 1:15 PM CDT Office Visit [facility] at [address] [address] Katia Gupta NP Acute pain of left shoulder (Primary Dx) 07/01/2024 Results Follow-Up [facility] at [address] [address] Katia Gupta NP 06/18/2024 Telephone [facility] at [address] [address] Carlos Eduardo Chappell MD 04/06/2024 Telephone [facility] at [address] [address] Carlos Eduardo Chappell MD Recommendation Request from Last 3 Months Immunizations Immunization Administration Dates Next Due Influenza, Quadrivalent, Hig h Dose, Preservative Free, Intrr 01/18/2022 Influenza, Quadrivalent, Spl it, Preservative Free, Intramuscular 03/14/2023,02/20/2021,02/17/2020,02/13,04/15/2018 Influenza, Trivalent, High D ose, Split, Preservative Free, Intramuscular 12/02/2023,12/09/2014 Influenza, Trivalent, IM (MDV) 4,12/18/2012,12/18/2012,12/17,02/14/2011,12/16/2008,01/21/2008 ,01/20/2008 Influenza, Unspecified 12/09/2016 Pneumococcal Conjugate PCV 13 02/16/2016 Pneumococcal Conjugate Pcv20 07/03/2022 Pneumococcal Polysaccharide PPV23 06/03/2014 Tdap 07/03/2022,12/10/2007 ZOSTER LIVE 05/02/2009 ZOSTER Recombinant 04/19/2022,02/04/2022 Surgical History Surgery Date Site/Laterality Comments GALLBLADDER SURGERY 03/11/1973 - 03/10/1974 BREAST BIOPSY 03/11/1993 Right BENIGN BREAST BIOPSY 03/11/1994 Left BENIGN EXCHANGE PICC LINE 07/15/2020 Left CHOLECYSTECTOMY COLONOSCOPY last one 04/2021 SECTION UPPER GASTROINTESTINAL ENDOSCOPY Medical History Medical History Date Comments Anxiety Depression Hypertension Tremors of nervous system Hiatal hernia Psoriasis GERD (gastroesophageal reflux disease) Hemorrhoids Hyperlipidemia Transaminitis 07/11/2020 Hyperbilirubinemia 07/11/2020 Encounter for screening colonoscopy 07/07/2020 Added automatically from request for surgery [id number] Elevated liver enzymes 09/05/2019 Found dur ing ED visit 08/30/2019 - CT scan negative, needs repeat labs for monitoring Acute kidney injury superimp osed on chronic kidney disease 07/11/2020 Septic shock (HCC) 07/11/2020 Cholangitis (HCC) 07/10/2020 Added automati krishan from request for surgery [id number] Abnormal CT scan of lung 05/30/2021 Nonspec ific nodular pleural thickening May 2021 - recommend repeat in 3-6 months Generalized anxiety disorder 07/31/2021 Moderate episode of recurren t major depressive disorder (HCC) 08/30/2022 Essential tremor 04/15/2018 Family History Medical History Relation Name Comments Bladder Cancer Brother Prostate cancer Brother Cancer Father Gordy Stone Lung cancer Father Gordy Stone Diabetes Mother Peshtigo Stone Hypertension Mother Peshtigo Stone Skin cancer Sister Breast cancer Neg Hx Endometrial cancer Neg Hx Ovarian cancer Neg Hx Thyroid cancer Neg Hx Relation Name Status Comments Brother Alive Father Gordy Stone Mother Zulma Stone Sister Social History Tobacco Use Types Packs/Day Years [...] often do you attend chur ch or bahai services? More than 4 times per year 11/21/2023 Do you belong to any clubs o r organizations such as spiritism groups, unions, fraternal or athletic groups, or [...] place to sleep or slept in a senior care (including now)? No 07/18/2020 Personal Safety Answer Date Recorded Have you ever been in or are you currently in a harmful physical or emotional relationship or is someone making you feel afraid or unsafe? Denies 12/11/2023 Comments No Sex and Gender Information Value Date Recorded Sex Assigned at Not on file Legal Sex Female 12:59 AM TRAINING DEVELOPMENT MANAGER Gender Identity Not on file Sexual Orientation Not on file Obstetrics History Para Term AB IAB SAB Ectopic Multiple Livin g Live Births 3 3 3 Date Outcome GA Total Labor Labor/2nd/3rd Weight Sex Type Anes PTL Brianne A1 A5 Name Clin Term Term Term Last Filed Vital Signs Vital Sign Reading Time Taken Comments Blood Pressure 124/78 07/01/2024 1:08 PM CDT Pulse 54 07/01/2024 1:08 PM CDT Temperature 36.8 C (98.2 F) 02/25/2024 12:31 PM TRAINING DEVELOPMENT MANAGER Respiratory Rate 18 12/16/2023 3:49 PM CDT Oxygen Saturation 96% 07/01/2024 1:08 PM CDT Inhaled Oxygen Concentration - - Weight 72.1 kg (159 lb) 07/01/2024 1:08 PM CDT Height 165.1 cm (5' 5 ) 07/01/2024 1:08 PM CDT Body Mass Index 26.46 07/01/2024 1:08 PM CDT Plan of Treatment Health Maintenance Due Date Last Done Comments Breast Cancer Screening-Mammogram 03/21/2025 03/21/2023, 04/12/2021, 02/24/2020, Additional history exists Fall Risk Assessment 03/26/2025 03/26/2024, 12/11/2023, 12/02/2023, Additional history exists Well Visit 65+ 03/26/2025 03/26/2024, 06/2023, 02/27/2022, Additional history exists Depression Screening 07/01/2025 07/01/2024, 03/26/2024, 12/02/2023, Additional history exists Colon Cancer Screening-Colonoscopy 09/14/2025 09/14/2020, 01/26/2015 Osteoporosis Screening-Bone Density Scan 03/06/2027 03/06/2022, 07/04/2016 DTaP/Tdap/Td Vaccine (3 - Td or Tdap) 07/03/2032 07/03/2022, 12/10/2007 Colon Cancer Screening-CT Colonography Discontinued 09/14/2020, 01/26/2015 Colon Cancer Screening-DNA Stool Discontinued 09/15/19 21, 01/26/2015 Colon Cancer Screening-FIT Discontinued 09/14/2020, Colon Cancer Screening-Sigmoidoscopy Discontinued 09/14/2020, 01/26/2015 Zoster Vaccine Completed 04/19/2022, 01/10, 05/02/2009 Pneumococcal vaccine 65+ Completed 023, 02/16/2016, 06/03/2014 Hepatitis B Screening Completed 07/17/2023 Hepatitis C Screening Completed 07/17/2023 , 07/12/2020, 02/13/2019 Influenza Vaccine Completed 12/02/2023, , 01/18/2022, Additional history exists Medical Devices Implanted Type Area Business Strategy Manager Device Identifier Shelf Expiration Date Model / Serial / Lot [employer] [id number] Wallflex Permalume 10mm 8.5fr 60mm 194cm Fully Cover Catheter - [id number] Implanted:Qty: 1 on 07/11/2020 by Carlo Cancino MD at [facility] [employer] 05/30/2022 [id number] / / [id number] Procedures Procedure Name Priority Date/Time Associated Diagnosis Comments XR SHOULDER LEFT 2 OR MORE VIEWS Schedule Routine, Read Routine (OP Routine) 07/01/2024 2:14 PM CDT Acute pain of left shoulder HEPATITIS C ANTIBODY Routine 07/17/2023 11:28 AM CDT Abdominal pain Nausea SCREENING MAMMOGRAM BILATERAL W DMITRY Schedule Routine, Read Routine (OP Routine) 03/21/2023 12:56 PM TRAINING DEVELOPMENT MANAGER Encounter for screening mammogram for malignant neoplasm of breast DEXA AXIAL SKELETON BONE DENSITY 1 OR MORE SITES Schedule Routine, Read Routine (OP Routine) 03/06/2022 1:16 PM TRAINING DEVELOPMENT MANAGER Asymptomatic menopausal state COLONOSCOPY 09/14/2020 9:31 AM [...] signed by: Wesley Moody M.D. Katia Gupta NP IMG XR PROCEDURES Final Res ult * [...] CDT Leatha Lewis MD LAB MICROBIOLOGY - [facility] AL ORDERABLES Edited Result - Final NOREEN KIM [address] Department [place] [address] * SCREENING MAMMOGRAM BILATERAL W DMITRY (03/21/2023 12:56 PM TRAINING DEVELOPMENT MANAGER) Anatomical Region Laterality Modality Breast Bilateral Mammography 03/21/2023 1:26 PM TRAINING DEVELOPMENT MANAGER Impressions 03/21/2023 1:26 PM TRAINING DEVELOPMENT MANAGER No evidence of malignancy in either breast. FINAL ASSESSMENT: BI-RADS Category 1: Negative. RECOMMENDATION: Recommend return for annual screening mammogram in 12 months. Electronically signed by: MD Christine GLOVER 03/21/2023 1:26 PM TRAINING DEVELOPMENT MANAGER EXAMINATION: BILATERAL SCREENING MAMMOGRAM COMPARISON: Multiple prior studies, most recently 04/12/2021 and dating back to 2018. TECHNIQUE: Full-field 2D and digital breast tomosynthesis (DBT) images were obtained. CAD was utilized. BREAST PARENCHYMAL COMPOSITION: There are scattered areas of fibroglandular density. FINDINGS: There is no suspicious mass, calcification, or distortion in either breast. Carlos Eduardo Chappell MD IMG MAMMO PROCEDURES Final Result * Dexa Axial Skeleton Bone Density 1 or 2 Site (03/06/2022 1:16 PM TRAINING DEVELOPMENT MANAGER) Anatomical Region Laterality Modality Body N/A Digital Radiogra phy 03/06/2022 1:37 PM TRAINING DEVELOPMENT MANAGER Impressions 03/06/2022 2:14 PM TRAINING DEVELOPMENT MANAGER 1. The bone mineral density of the [...] Talat Goldman M.D. Narrative 03/06/2022 2:14 PM TRAINING DEVELOPMENT MANAGER BONE DENSITOMETRY OF THE SPINE AND HIP [...] it. Electronically signed by: Talat Goldman M.D. us Carlos Eduardo Chappell MD IMG DXA PROCEDURES Fi nal Result * COLONOSCOPY (09/14/2020 9:31 AM CDT) Anatomical Region Laterality Modality Other Narrative Procedure Note Carlo Cancino MD - 09/14/2020 9:31 AM CDT [facility] Patient Name: Mayelin Mcdaniel Procedure [...] Barajas(Anesthesia Staff), Gianni Lucero RN, Mer Herrera, Mascara Molder Referring MD: Carlos Eduardo Chappell M.D. Medicines: [...] bowel preparation was evaluated using the BBPS ([place] Bowel Preparation Scale)with scores of: Right Colon [...] for surveillance. Procedure Code(s): --- Professional --- 88237, Colonoscopy, flexible; with removal of tumor(s), polyp(s), or other lesion(s) by snare technique 15814, 59, Colonoscopy, flexible; with biopsy,single or multiple CPT copyright 2019 [employer]. All rights reserved. The codes documented in this report are preliminary and upon intelligence director reviewmay be revised to meet current compliance requirements. Electronically signed by Carlo Cancino MD Carlo Cancino M.D. 09/14/2020 10:10:51 AM Number of Addenda: 0 Note Initiated On: 09/14/2020 9:31 AM Carlo Cancino MD ENDOSCOPY PROCEDURES Final Re sult from Last 3 Months or Most Recently Relevant to Health Maintenance Insurance MEDICARE [place] [facility] MEDICARE [facility] MEDICARE [facility] [facility] MEDICARE Advance Directives For more information, please contact: [phone] * Full Code (Latest Code Status on File) Date Activated Date Inactivated Comments 12/11/2023 9:06 AM 12/11/2023 3:32 PM * Full Code Date Activated Date Inactivated Comments 11/20/2023 7:08 AM 11/21/2023 10:35 PM * Full Code Date Activated Date Inactivated Comments 07/11/2020 6:20 AM 07/15/2020 5:07 PM Care Teams Assembly Technician Relationship Specialty Start [place] [address] [address] PCP - General Family Medicine 04/15/18 Leatha Lewis MD [address] DIV IM GASTROENTEROLOGY, [facility] [address] [place] [address] Referring Physician Gastroenterology 11/09/21 [place] [address] [facility] [address] [place] [address] Consulting Physician Psychiatry 02/27/22 Adolfo Kilgore MD [address] DIV IM BONE MARROW TRANSPLANT, [address] [place] [address] Consulting Physician Medical Oncology 03/07/22 Sukhwinder Hoffman [employer]PER[employer]ING [employer] [address] [address] Nurse Practitioner Psychiatry 05/07/24
--- OUTSIDE RECORDS SUMMARY | 2024-07-05 07:01 | XMS_ITS | Encounter Summary ---
Author Organization [facility] Healthcare Address [address] [place] [address] Care Team Providers Care Inker Name Role Phone Carlos Eduardo Chappell MD Primary Care Provide r Leatha Lewis MD Unavailable Heath Whitt MD Unavailable [phone] Adolfo Kilgore MD Unavailable Sukhwinder Hoffman NP Unavailable [phone] Encounter Details Date Type Department Care Team (Late st Contact Info) Description 01/12/2024 E-Visit Family Care at [facility] [address] [address] Carlos Eduardo Chappell MD [address] [place] [id number] Clonazepam Social History Tobacco Use Types Packs/Day Years [...] often do you attend chur ch or jain services? More than 4 times per year 11/21/2023 Do you belong to any clubs o r organizations such as caodaism groups, unions, fraternal or athletic groups, or [...] points, staff should administer the PHQ-9) 0 12/02/2023 PRAPARE - Transportation Answer Date Re corded [...] place to sleep or slept in a group home (including now)? No 07/18/2020 Personal Safety Answer Date Recorded Have you ever been in or are you currently in a harmful physical or emotional relationship or is someone making you feel afraid or unsafe? Denies 12/11/2023 Comments No Sex and Gender Information Value Date Recorded Sex Assigned at Not on file Legal Sex Female 12:59 AM REGIONAL SERVICE MANAGER Gender Identity Not on file Sexual Orientation Not on file documented as of this encounter Plan of Treatment Not on file documented as of this encounter Visit Diagnoses Not on filedocumented in this encounter Care Teams Inker Relationship Specialty Start Date [place] [address] [place] [address] PCP - General Family Medicine 04/15/18 Leatha Lewis MD [address] DIV IM GASTROENTEROLOGY, [facility] [address] [place] [address] Referring Physician Gastroenterology 11/09/21 [place] [address] [address] [facility] [address] [place] [address] Consulting Physician Psychiatry 02/27/22 Adolfo Kilgore MD [address] DIV IM BONE MARROW TRANSPLANT, [address] [place] [address] Consulting Physician Medical Oncology 03/07/22 Sukhwinder Hoffman, DEVELOPER [employer] [address] [place] [address] Nurse Practitioner Psychiatry 05/07/24 documented as of this encounter
[2024-07-05 07:03] VITALS: BP 142/70; PULSE 62; RESP 18; TEMP 36.3; O2SAT 97
[2024-07-05 07:40] LABS: Basophils Absolute Auto 0.1 K/mm3 (0.0-0.1); Basophils Percent Auto 0.5 % (0.2-1.2); Eosinophils Absolute Auto 0.1 K/mm3 (0-0.3); Eosinophils Percent Auto 0.5 % (0-4.4); Hematocrit 40.1 % (37.0-47.0); Hemoglobin 12.8 g/dL (12.0-15.0); Immature Granulocyte Absolute 0.05 K/mm3 (0.00-0.031); Immature Granulocyte Percent A 0.3 % (0-0.5); Lymphocytes Absolute Auto 3.13 K/mm3 (0.9-3.2); Lymphocytes Percent Auto 20.9 % (18.3-44.2); Mean Corpuscular HGB Conc 31.9 g/dl (32-36); Mean Corpuscular Hemoglobin 28.8 pg (26-34); Mean Corpuscular Volume 90.1 fl (80-100); Mean Platelet Volume 9.8 fl (7.4-10.4); Monocytes Absolute Auto 0.8 K/mm3 (0.1-0.6); Monocytes Percent Auto 5.5 % (2.6-8.5); Neutrophils Absolute Auto 10.8 K/mm3 (1.3-6.7); Neutrophils Percent Auto 72.3 % (45.5-73.1); Platelet Count Result 253 k/mm3 (150-375); Red Blood Count 4.45 M/mm3 (4.2-5.4); Red Cell Distribution Width 12.8 % (11.5-14.5)
--- OUTSIDE RECORDS SUMMARY | 2024-07-05 07:45 | XMS_ITS | Referral Summary ---
Author Organization [facility] Address [address] [place] [address] Phone Care Team Providers Care Handkerchief Presser Name Role Phone Carlos Eduardo Chappell MD Primary Care Provide r Leatha Lewis MD Unavailable [phone] Heath Whitt MD Unavailable Adolfo Kilgore MD Unavailable Sukhwinder Hoffman NP Unavailable [phone] Encounters Date Type Department Care Team Description 07/01/2024 Results Follow-Up Family Care at [address] [phone] Katia Gupta NP 07/01/2024 1:45 PM CDT - 07/01/2024 11:59 PM CDT Hospital Encounter [facility] Diagnostic Imaging [address] [place] [address] Acute pain of left shoulder Discharge Disposition: Discharge to home or self care 07/01/2024 1:15 PM CDT Office Visit Family Care at [address] [address] Katia Gupta NP Acute pain of left shoulder (Primary Dx) 06/18/2024 Telephone Family Care at [address] [address] Carlos Eduardo Chappell MD 04/06/2024 Telephone Family Care at [facility] [address] [facility] [place] [address] Carlos Eduardo Chappell MD Recommendation [...] 03/26/2024 Assessment & Plan (03/26/2024 4:23 PM WEBLOGIC DEVELOPER): BP Readings from Last 3 Encounters: 03/26/24 125/74 02/25/24 142/75 12/16/23 127/70 Controlled/stable, continue current management Continue hydrochlorothiazide Adjustment disorder with mixed anxiety and depre ssed mood 03/26/2024 Assessment & Plan (03/26/2024 4:21 PM WEBLOGIC DEVELOPER): Overall, despite the patient's significant anxiety and stress at this time, we agreed that no change in medication is needed specifically as it relates to her daytime anxiety and depression She will continue the clonazepam p.r.n. She will continue to rely on her christian and idalmis for support I did also provide her with the name of 1 of our [facility] group psychiatrists, as the current Psychiatry referral she has is strictly related to her GI issues Insomnia due to psychological stress 03/26/2024 Assessment & Plan (03/26/2024 4:22 PM WEBLOGIC DEVELOPER): Since the primary disturbance in the patient's [...] 12/25 Assessment & Plan (03/26/2024 4:16 PM WEBLOGIC DEVELOPER): Controlled/stable, continue current management Await upcoming evaluation [...] (08/12/2020): Added automatically from request for surgery [id number] Abdominal pain 07/11/2020 Common bile duct dilation 07/11/2020 Assessment & Plan (03/26/2024 4:17 PM WEBLOGIC DEVELOPER): Thus far this has been a benign issue for the patient other than the acute gallbladder issues She will continue to follow up closely with GI for ongoing evaluation and treatment recommendations Hyperlipidemia 07/11/2020 Assessment & Plan (03/26/2024 4:16 PM WEBLOGIC DEVELOPER): Continue statin therapy Gastroesophageal reflux dise ase with esophagitis without hemorrhage 07/07/2020 Overview (07/07/2020): Added automatically from request for surgery [id number] Assessment & Plan (03/26/2024 4:16 PM WEBLOGIC DEVELOPER): Controlled/stable, continue current management Continue PPI therapy Follow up with GI CKD (chronic kidney disease) stage 2, GFR 60-89 ml/min 02/18/2020 Assessment & Plan (03/26/2024 4:17 PM WEBLOGIC DEVELOPER): Stable, monitor Hypertension 04/15/2018 Resolved Problems Problem [...] (07/11/2020): Added automatically from request for surgery [id number] Encounter for screening colonoscopy 07/07/2020 09/15/2020 Overview (07/07/2020): Added automatically from request for surgery [id number] Elevated liver enzymes 09/05/201909/15 Overview (09/05/2019): Found [...] week 11/21/2023 How often do you attend [facility] or zoroastrian services? More than 4 times per year 11/21/2023 Do you belong to any clubs o r organizations such as christian groups, unions, fraternal or athletic groups, or [...] place to sleep or slept in a assisted (including now)? No 07/18/2020 Personal Safety Answer Date Recorded Have you ever been in or are you currently in a harmful physical or emotional relationship or is someone making you feel afraid or unsafe? Denies 12/11/2023 Comments No Sex and Gender Information Value Date Recorded Sex Assigned at Not on file Legal Sex Female 12:59 AM WEBLOGIC DEVELOPER Gender Identity Not on file Sexual Orientation Not on file Last Filed Vital Signs Vital Sign Reading Time Taken Comments Blood Pressure 124/78 07/01/2024 1:08 PM CDT Pulse 54 07/01/2024 1:08 PM CDT Temperature 36.8 C (98.2 F) 02/25/2024 12:31 PM WEBLOGIC DEVELOPER Respiratory Rate 18 12/16/2023 3:49 PM CDT Oxygen Saturation 96% 07/01/2024 1:08 PM CDT Inhaled Oxygen Concentration - - Weight 72.1 kg (159 lb) 07/01/2024 1:08 PM CDT Height 165.1 cm (5' 5 ) 07/01/2024 1:08 PM CDT Body Mass Index 26.46 07/01/2024 1:08 PM CDT Plan of Treatment Not on file Medical Devices Implanted Type Area Box Toe Cementer Device Identifier Shelf Expiration Date Model / Serial / Lot [employer] Abi [id number] Wallflex Permalume 10mm 8.5fr 60mm 194cm Fully Cover Catheter - [id number] Implanted:Qty: 1 on 07/11/2020 by Carlo Cancino MD at [facility] Stent [employer] Abi 05/30/2022 [id number] / / [id number] Procedures Procedure Name Priority Date/Time Associated Diagnosis Comments XR SHOULDER LEFT 2 OR MORE VIEWS Schedule Routine, Read Routine (OP Routine) 07/01/2024 2:14 PM CDT Acute pain of left shoulder HEPATITIS C ANTIBODY Routine 07/17/2023 11:28 AM CDT Abdominal pain Nausea SCREENING MAMMOGRAM BILATERAL W DMITRY Schedule Routine, Read Routine (OP Routine) 03/21/2023 12:56 PM WEBLOGIC DEVELOPER Encounter for screening mammogram for malignant neoplasm of breast DEXA AXIAL SKELETON BONE DENSITY 1 OR MORE SITES Schedule Routine, Read Routine (OP Routine) 03/06/2022 1:16 PM WEBLOGIC DEVELOPER Asymptomatic menopausal state COLONOSCOPY 09/14/2020 9:31 AM [...] signed by: Wesley Moody M.D. Katia Gupta CLOTH COVERER IMG XR PROCEDURES Final Res ult * [...] CDT Leatha Lewis MD LAB MICROBIOLOGY - [facility] AL ORDERABLES [place] - [place] [address] [address] Department [place] [address] * SCREENING MAMMOGRAM BILATERAL W DMITRY (03/21/2023 12:56 PM WEBLOGIC DEVELOPER) Anatomical Region Laterality Modality Breast Bilateral Mammography 03/21/2023 1:26 PM WEBLOGIC DEVELOPER Impressions 03/21/2023 1:26 PM WEBLOGIC DEVELOPER No evidence of malignancy in either breast. FINAL ASSESSMENT: BI-RADS Category 1: Negative. RECOMMENDATION: Recommend return for annual screening mammogram in 12 months. Electronically signed by: ALFREDA PRIEST MD Narrative 03/21/2023 1:26 PM WEBLOGIC DEVELOPER EXAMINATION: BILATERAL SCREENING MAMMOGRAM COMPARISON: Multiple prior [...] 1 or 2 Site (03/06/2022 1:16 PM WEBLOGIC DEVELOPER) Anatomical Region Laterality Modality Body N/A Digital Radiogra phy 03/06/2022 1:37 PM WEBLOGIC DEVELOPER Impressions 03/06/2022 2:14 PM WEBLOGIC DEVELOPER 1. The bone mineral density of the [...] Talat Goldman M.D. Narrative 03/06/2022 2:14 PM WEBLOGIC DEVELOPER BONE DENSITOMETRY OF THE SPINE AND HIP [...] Cancino MD - 09/14/2020 9:31 AM CDT [facility] Endoscopy Lab Patient Name: Mayelin [...] Barajas(Anesthesia Staff), Gianni Lucero RN, Mer Herrera, Archives Technician Referring MD: Carlos Eduardo Chappell M.D. Medicines: [...] bowel preparation was evaluated using the BBPS ([place] Bowel Preparation Scale)with scores of: Right Colon [...] for surveillance. Procedure Code(s): --- Professional --- 86530, Colonoscopy, flexible; with removal of tumor(s), polyp(s), or other lesion(s) by snare technique 02543, 59, Colonoscopy, flexible; with biopsy,single or multiple CPT copyright 2019 [employer]. All rights reserved. The codes documented in this report are preliminary and upon debt recovery officer reviewmay be revised to meet current compliance requirements. Electronically signed by Carlo Cancino MD Carlo Cancino M.D. 09/14/2020 10:10:51 AM Number of Addenda: 0 Note Initiated On: 09/14/2020 9:31 AM Carlo Cancino MD ENDOSCOPY PROCEDURES Final Re sult from Last 3 Months or Most Recently Relevant to Health Maintenance Insurance MEDICARE [facility] FERNANDO Villegas [id number] MEDICARE [facility] MEDICARE [employer] [facility] [employer] [facility] MEDICARE Advance Directives For more information, please contact: [phone] * Full Code (Latest Code Status on File) Date Activated Date Inactivated Comments 12/11/2023 9:06 AM 12/11/2023 3:32 PM * Full Code Date Activated Date Inactivated Comments 11/20/2023 7:08 AM 11/21/2023 10:35 PM * Full Code Date Activated Date Inactivated Comments 07/11/2020 6:20 AM 07/15/2020 5:07 PM Care Teams Handkerchief Presser Relationship Specialty Start [place] [address] [address] [facility] [address] [place] [address] PCP - General Family Medicine 04/15/18 Leatha Lewis MD [address] DIV IM GASTROENTEROLOGY, [facility] [address] [place] [address] Referring Physician Gastroenterology 11/09/21 [place] [address] [address] [facility] [address] [place] [address] Consulting Physician Psychiatry 02/27/22 Adolfo Kilgore MD [address] DIV IM BONE MARROW TRANSPLANT, [address] [place] [address] Consulting Physician Medical Oncology 03/07/22 Sukhwinder Hoffman, CLOTH COVERER [address] [facility] [address] [place] [address] Nurse Practitioner Psychiatry 05/07/24
--- OUTSIDE RECORDS SUMMARY | 2024-07-05 07:45 | XMS_ITS | Clinical Summary ---
Author Organization [facility] Address [address] [place] [address] Phone Care Team Providers Care Senior Credit Officer Name Role Phone Carlos Eduardo Chappell MD Primary Care Provide r Leatha Lewis MD Unavailable Heath Whitt MD Unavailable Adolfo Kilgore MD Unavailable Sukhwinder Hoffman NP Unavailable [phone] Allergies Active Allergy Reactions Criticality Noted [...] 03/26/2024 Assessment & Plan (03/26/2024 4:23 PM HISTOLOGY SPECIALIST): BP Readings from Last 3 Encounters: 03/26/24 125/74 02/25/24 142/75 12/16/23 127/70 Controlled/stable, continue current management Continue hydrochlorothiazide Adjustment disorder with mixed anxiety and depre ssed mood 03/26/2024 Assessment & Plan (03/26/2024 4:21 PM HISTOLOGY SPECIALIST): Overall, despite the patient's significant anxiety and stress at this time, we agreed that no change in medication is needed specifically as it relates to her daytime anxiety and depression She will continue the clonazepam p.r.n. She will continue to rely on her hinduism and idalmis for support I did also provide her with the name of 1 of our [facility] group psychiatrists, as the current Psychiatry referral she has is strictly related to her GI issues Insomnia due to psychological stress 03/26/2024 Assessment & Plan (03/26/2024 4:22 PM HISTOLOGY SPECIALIST): Since the primary disturbance in the patient's [...] 12/25 Assessment & Plan (03/26/2024 4:16 PM HISTOLOGY SPECIALIST): Controlled/stable, continue current management Await upcoming evaluation [...] (08/12/2020): Added automatically from request for surgery [id number] Abdominal pain 07/11/2020 Common bile duct dilation 07/11/2020 Assessment & Plan (03/26/2024 4:17 PM HISTOLOGY SPECIALIST): Thus far this has been a benign issue for the patient other than the acute gallbladder issues She will continue to follow up closely with GI for ongoing evaluation and treatment recommendations Hyperlipidemia 07/11/2020 Assessment & Plan (03/26/2024 4:16 PM HISTOLOGY SPECIALIST): Continue statin therapy Gastroesophageal reflux dise ase with esophagitis without hemorrhage 07/07/2020 Overview (07/07/2020): Added automatically from request for surgery [id number] Assessment & Plan (03/26/2024 4:16 PM HISTOLOGY SPECIALIST): Controlled/stable, continue current management Continue PPI therapy Follow up with GI CKD (chronic kidney disease) stage 2, GFR 60-89 ml/min 02/18/2020 Assessment & Plan (03/26/2024 4:17 PM HISTOLOGY SPECIALIST): Stable, monitor Hypertension 04/15/2018 Resolved Problems Problem [...] (07/11/2020): Added automatically from request for surgery [id number] Encounter for screening colonoscopy 07/07/2020 09/15/2020 Overview (07/07/2020): Added automatically from request for surgery [id number] Elevated liver enzymes 09/05/201909/15 Overview (09/05/2019): Found [...] - 07/01/2024 11:59 PM CDT Hospital Encounter [facility] Diagnostic Imaging [address] [place] [address] Acute pain of left shoulder Discharge Disposition: Discharge to home or self care 07/01/2024 1:15 PM CDT Office Visit Family Care at [address] [address] Katia Gupta NP Acute pain of left shoulder (Primary Dx) 07/01/2024 Results Follow-Up Family Care at [address] [address] Katia Gupta NP 06/18/2024 Telephone Family Care at [address] [address] Carlos Eduardo Chappell MD 04/06/2024 Telephone Family Care at [address] [address] Carlos Eduardo Chappell MD Recommendation Request from [...] 07/07/2020 Added automatically from request for surgery [id number] Elevated liver enzymes 09/05/2019 Found dur ing ED visit 08/30/2019 - CT scan negative, needs repeat labs for monitoring Acute kidney injury superimp osed on chronic kidney disease 07/11/2020 Septic shock (HCC) 07/11/2020 Cholangitis (HCC) 07/10/2020 Added automati krishan from request for surgery [id number] Abnormal CT scan of lung 05/30/2021 Nonspec ific nodular pleural thickening May 2021 - recommend repeat in 3-6 months Generalized anxiety disorder 07/31/2021 Moderate episode of recurren t major depressive disorder (HCC) 08/30/2022 Essential tremor 04/15/2018 Family History Medical History Relation Name Comments Bladder Cancer Brother Prostate cancer Brother Cancer Father Gordy Stone Lung cancer Father Gordy Stone Diabetes Mother [place] Stone Hypertension Mother [place] Skin cancer Sister Breast cancer Neg [...] often do you attend chur ch or yarsani services? More than 4 times per year 11/21/2023 Do you belong to any clubs o r organizations such as hinduism groups, unions, fraternal or athletic groups, or [...] place to sleep or slept in a jail (including now)? No 07/18/2020 Personal Safety Answer Date Recorded Have you ever been in or are you currently in a harmful physical or emotional relationship or is someone making you feel afraid or unsafe? Denies 12/11/2023 Comments No Sex and Gender Information Value Date Recorded Sex Assigned at Not on file Legal Sex Female 12:59 AM HISTOLOGY SPECIALIST Gender Identity Not on file Sexual Orientation [...] 36.8 C (98.2 F) 02/25/2024 12:31 PM HISTOLOGY SPECIALIST Respiratory Rate 18 12/16/2023 3:49 PM CDT [...] history exists Medical Devices Implanted Type Area Poker Room Manager Device Identifier Shelf Expiration Date Model / Serial / Lot [employer] Abi [id number] Wallflex Permalume 10mm 8.5fr 60mm 194cm Fully Cover Catheter - [id number] Implanted:Qty: 1 on 07/11/2020 by Carlo Cancino MD at [facility] Stent [employer] Abi 05/30/2022 [id number] / / [id number] Procedures Procedure Name Priority Date/Time Associated Diagnosis Comments XR SHOULDER LEFT 2 OR MORE VIEWS Schedule Routine, Read Routine (OP Routine) 07/01/2024 2:14 PM CDT Acute pain of left shoulder HEPATITIS C ANTIBODY Routine 07/17/2023 11:28 AM CDT Abdominal pain Nausea SCREENING MAMMOGRAM BILATERAL W DMITRY Schedule Routine, Read Routine (OP Routine) 03/21/2023 12:56 PM HISTOLOGY SPECIALIST Encounter for screening mammogram for malignant neoplasm of breast DEXA AXIAL SKELETON BONE DENSITY 1 OR MORE SITES Schedule Routine, Read Routine (OP Routine) 03/06/2022 1:16 PM HISTOLOGY SPECIALIST Asymptomatic menopausal state COLONOSCOPY 09/14/2020 9:31 AM [...] CDT Leatha Lewis MD LAB MICROBIOLOGY - [facility] AL ORDERABLES Edited Result - Final NORE[place] KIM [address] [address] Department [place] [address] * SCREENING MAMMOGRAM BILATERAL W DMITRY (03/21/2023 12:56 PM HISTOLOGY SPECIALIST) Anatomical Region Laterality Modality Breast Bilateral Mammography 03/21/2023 1:26 PM HISTOLOGY SPECIALIST Impressions 03/21/2023 1:26 PM HISTOLOGY SPECIALIST No evidence of malignancy in either breast. FINAL ASSESSMENT: BI-RADS Category 1: Negative. RECOMMENDATION: Recommend return for annual screening mammogram in 12 months. Electronically signed by: MD Christine GLOVER 03/21/2023 1:26 PM HISTOLOGY SPECIALIST EXAMINATION: BILATERAL SCREENING MAMMOGRAM COMPARISON: Multiple prior [...] 1 or 2 Site (03/06/2022 1:16 PM HISTOLOGY SPECIALIST) Anatomical Region Laterality Modality Body N/A Digital Radiogra phy 03/06/2022 1:37 PM HISTOLOGY SPECIALIST Impressions 03/06/2022 2:14 PM HISTOLOGY SPECIALIST 1. The bone mineral density of the [...] Talat Goldman M.D. Narrative 03/06/2022 2:14 PM HISTOLOGY SPECIALIST BONE DENSITOMETRY OF THE SPINE AND HIP [...] Cancino MD - 09/14/2020 9:31 AM CDT [facility] Endoscopy Lab Patient Name: Mayelin Mcdaniel Procedure [...] Barajas(Anesthesia Staff), Gianni Lucero RN, Mer Herrera, Field Observer Referring MD: Carlos Eduardo Chappell M.D. Medicines: [...] bowel preparation was evaluated using the BBPS ([place] Bowel Preparation Scale)with scores of: Right Colon [...] for surveillance. Procedure Code(s): --- Professional --- 15539, Colonoscopy, flexible; with removal of tumor(s), polyp(s), or other lesion(s) by snare technique 64538, 59, Colonoscopy, flexible; with biopsy,single or multiple CPT copyright 2019 [employer]. All rights reserved. The codes documented in this report are preliminary and upon snorkelling instructor reviewmay be revised to meet current compliance requirements. Electronically signed by Carlo Cancino MD Carlo Canicno M.D. 09/14/2020 10:10:51 AM Number of Addenda: 0 Note Initiated On: 09/14/2020 9:31 AM Carlo Cancino MD ENDOSCOPY PROCEDURES Final Re sult from Last 3 Months or Most Recently Relevant to Health Maintenance Insurance MEDICARE [facility] MEDICARE [facility] MEDICARE [facility] M[facility]UAL [facility] MEDICARE Advance Directives For more information, please contact: [phone] * Full Code (Latest Code Status on File) Date Activated Date Inactivated Comments 12/11/2023 9:06 AM 12/11/2023 3:32 PM * Full Code Date Activated Date Inactivated Comments 11/20/2023 7:08 AM 11/21/2023 10:35 PM * Full Code Date Activated Date Inactivated Comments 07/11/2020 6:20 AM 07/15/2020 5:07 PM Care Teams Senior Credit Officer Relationship Specialty Start [place] [address] [address] PCP - General Family Medicine 04/15/18 Leatha Lewis MD [address] [facility] [facility] [address] [address] DIV IM GASTROENTEROLOGY, [facility] [address] [place] [address] Referring Physician Gastroenterology 11/09/21 [place] [address] [facility] [address] [place] [address] Consulting Physician Psychiatry 02/27/22 Adolfo Kilgore MD [address] DIV IM BONE MARROW TRANSPLANT, [address] [place] [address] Consulting Physician Medical Oncology 03/07/22 Sukhwinder Hoffman DISCIPLINARY HEARING OFFICER [address] [address] Nurse Practitioner Psychiatry 05/07/24
--- OUTSIDE RECORDS SUMMARY | 2024-07-05 07:45 | XMS_ITS | Encounter Summary ---
Author Organization [facility] Healthcare Address [address] [place] [address] Care Team Providers Care Dry House Wheeler Name Role Phone Carlos Eduardo Chappell MD Primary Care Provide r Leatha Lewis MD Unavailable [phone] Heath Whitt MD Unavailable [phone] Adolfo Kilgore MD Unavailable Sukhwinder Hoffman NP Unavailable [phone] Encounter Details Date Type Department Care Team (Late st Contact Info) Description 01/12/2024 E-Visit Family Care at [facility] [address] [address] Carlos Eduardo Chappell MD [address] [place] [address] Clonazepam Social History Tobacco Use Types [...] often do you attend chur ch or taoism services? More than 4 times per year 11/21/2023 Do you belong to any clubs o r organizations such as latter day groups, unions, fraternal or athletic groups, or [...] on file Legal Sex Female 12:[address] MACHINE OPERATOR Gender Identity Not on file Sexual Orientation Not on file documented as of this encounter Plan of Treatment Not on file documented as of this encounter Visit Diagnoses Not on filedocumented in this encounter Care Teams Dry House Wheeler Relationship Specialty Start Date [place] [address] [address] [place] [address] PCP - General Family Medicine 04/15/18 Leatha Lewis MD [address] DIV IM GASTROENTEROLOGY, [facility] [address] [place] [address] Referring Physician Gastroenterology 11/09/21 [place] [address] [address] [facility] [address] [place] [address] Consulting Physician Psychiatry 02/27/22 Adolfo Kilgore MD [address] DIV IM BONE MARROW TRANSPLANT, [address] [place] [address] Consulting Physician Medical Oncology 03/07/22 Sukhwinder Hoffman, ELECTRONIC SPECIALIST [address] [place] [address] Nurse Practitioner Psychiatry 05/07/24 documented as of this encounter
--- OUTSIDE RECORDS SUMMARY | 2024-07-05 07:45 | XMS_ITS | Encounter Summary ---
Author Organization [facility] Healthcare Address [address] [place] [address] Care Team Providers Care Insole Tape Stitcher Uco Name Role Phone Carlos Eduardo Chappell MD Primary Care Provide r Leatha Lewis MD Unavailable Heath Whitt MD Unavailable Adolfo Kilgore MD Unavailable Sukhwinder Hoffman NP Unavailable [phone] Encounter Details Date Type Department Care Team (Late st Contact Info) Description 07/01/2024 Results Follow-Up Family Care at [facility] [address] [address] [place] [address] [address] Social History Tobacco Use Types [...] often do you attend chur ch or faith services? More than 4 times per year 11/21/2023 Do you belong to any clubs o r organizations such as adventism groups, unions, fraternal or athletic groups, or [...] place to sleep or slept in a mcc (including now)? No 07/18/2020 Personal Safety Answer Date Recorded Have you ever been in or are you currently in a harmful physical or emotional relationship or is someone making you feel afraid or unsafe? Denies 12/11/2023 Comments No Sex and Gender Information Value Date Recorded Sex Assigned at Not on file Legal Sex Female 12:59 AM MANAGER CLINICAL RESEARCH Gender Identity Not on file Sexual Orientation Not on file documented as of this encounter Plan of Treatment Not on file documented as of this encounter Visit Diagnoses Not on filedocumented in this encounter Care Teams Insole Tape Stitcher Uco Relationship Specialty Start Date [place] [address] [address] [facility] [address] [place] [address] PCP - General Family Medicine 04/15/18 Leatha Lewis MD [address] [facility] [address] DIV IM GASTROENTEROLOGY, [facility] [address] [place] [address] Referring Physician Gastroenterology 11/09/21 [place] [address] [facility] [address] [place] [address] Consulting Physician Psychiatry 02/27/22 Adolfo Kilgore MD [address] DIV IM BONE MARROW TRANSPLANT, [address] [place] [address] Consulting Physician Medical Oncology 03/07/22 Sukhwinder Hoffman, CAR RENTAL AGENT [address] [facility] [address] [place] [address] Nurse Practitioner Psychiatry 05/07/24 documented as of this encounter
[2024-07-05 07:50] LABS: Add Urine Microscopic? YES; Appearance Urine Turbid (Clear); Bacteria Urine 1+ /hpf; Blood Urine 2+ (Negative); Color Urine Red (Yellow); Glucose Urine UA Negative (Negative); Leukocyte Esterase Ur 3+ LEU/UL (Negative); Nitrate Urine Positive (Negative); Non Pathogenic Casts 0-2; Protein Urine 3+ mg/dL (Negative); RBC Urine >100 /hpf (0-2); Specific Grav Ur 1.018 (1.001-1.035); Squamous Epithelial Cell Urine Few /hpf (Few); WBC Urine >100 /hpf (0-3)
[2024-07-05 07:51] LABS: Alanine Aminotransferase 36 U/L (6-35); Albumin Level 4.5 g/dL (3.5-5.1); Alkaline Phosphatase 88 U/L (38-126); Anion Gap 9 mmol/L (4-12); Aspartate Amino Transferase 33 U/L (14-36); Bilirubin,Total 0.5 mg/dL (0.2-1.3); Blood Urea Nitrogen 26 mg/dL (7-17); Calcium 9.2 mg/dL (8.4-10.2); Carbon Dioxide 32 mmol/L (22-30); Chloride 101 mmol/L (98-107); Estimated CRCL calculation 38 ml/min; Estimated Glomerular Filt Rate 50; Glucose 97 mg/dL (65-110); Potassium 3.6 mmol/L (3.4-5.0); Sodium 142 mmol/L (137-145)
[2024-07-05 07:58] LABS: Need Manual Microscopic Reviewed
--- NOTE | 2024-07-05 08:10 | ED.GENADULT ---
HPI - General Adult General Chief complaint: Urogenital-Female Stated complaint: hematuria Time Seen by Provider: 07/05/24 07:27 History of Present Illness HPI narrative: 73-year-old female present to the emergency department for evaluation for hematuria and painful urination. Patient states symptoms started approximately 430 this morning. Patient does not take any blood thinners. Patient denies any prior history of kidney stones. Patient denies any worsening nausea vomiting or diarrhea. Related Data Home Medications ?Medication ?Instructions ?Recorded ?Confirmed ?Last Taken ?Type clonazepam 1 mg tablet 1 mg PO TID 06/24/24 06/24/24 Unknown History escitalopram oxalate 5 mg tablet 2.5 mg PO DAILY 06/24/24 06/24/24 Unknown History hydrochlorothiazide 25 mg tablet 25 mg PO DAILY 06/24/24 06/24/24 Unknown History linaclotide 145 mcg capsule 145 mcg PO DAILY 06/24/24 06/24/24 Unknown History (Linzess) ondansetron 4 mg disintegrating 4 mg PO TID PRN 06/24/24 06/24/24 Unknown History tablet pravastatin 40 mg tablet 40 mg PO DAILY 06/24/24 06/24/24 Unknown History propranolol 10 mg tablet 10 mg PO DAILY 06/24/24 06/24/24 Unknown History zolpidem 10 mg tablet 10 mg PO QHS 06/24/24 06/24/24 Unknown History Allergies Allergy/AdvReac Type Severity Reaction Status Date / Time ciprofloxacin Allergy Nausea Verified 07/05/24 07:05 metronidazole Allergy Nausea Verified 07/05/24 07:05 Review of Systems Review of Systems: All systems reviewed & are unremarkable except as noted in HPI and below PMFSH Past Medical History Medical History (Updated 07/05/24 @ 08:14 by Austen Lemos MD) Hypercholesteremia HTN (hypertension) GERD (gastroesophageal reflux disease) Depression Anxiety Family History Family History Mother Patient's mother is , Onset Age: 89 Father Patient's father is , Onset Age: 91 Sibling Family history of malignant neoplasm Social History Social History Smoking status: Never smoker Exam Narrative: APPEARANCE: Well appearing, no pain, no distress, well-nourished. HEAD: normocephalic, atraumatic. EYES: PERRLA/EOMI, conjunctivae clear. NOSE: Normal no drainage EARS:TMS clear with good light reflex. THROAT: Pharynx clear, no exudate. NECK: Supple. No adenopathy, no masses. RESPIRATORY: Airway patent, respirations nonlabored. Clear to auscultation bilaterally, no rales, rhonchi, wheezing. CARDIOVASCULAR: Regular rate and rhythm without murmurs rubs or gallops. ABDOMINAL: Soft, nontender, nondistended, normal bowel sounds MUSCULOSKELETAL: Moves all extremities. Strength/ROM intact, No edema, No calf tenderness. NEURO: Alert. Cranial nerves II through XII intact. Good gait. Good coordination SKIN: Warm, dry. Normal Color Course Vital Signs Vital signs: Vital Signs Temperature 97.3 F L 07/05/24 07:03 Pulse Rate 62 07/05/24 07:03 Respiratory Rate 18 07/05/24 07:03 Blood Pressure 142/70 H 07/05/24 07:03 Pulse Oximetry 97 07/05/24 07:03 Oxygen Delivery Room Air 07/05/24 07:03 Temperature 97.3 F L 07/05/24 07:03 Pulse Rate 60 07/05/24 09:15 Respiratory Rate 20 07/05/24 09:15 Blood Pressure 112/63 07/05/24 09:15 Pulse Oximetry 99 07/05/24 09:15 Oxygen Delivery Room Air 07/05/24 07:03 Medical Decision Making [facility] Narrative Medical decision making narrative: 73-year-old female presenting to the emergency department for evaluation for hematuria. Patient is currently afebrile but does have a leukocytosis of 15 any hemoglobin of 12.8. Patient has a creatinine of 1.07 and a BUN of 26. Patient does have hematuria nitrite positive urine leukocyte esterase positive however blood cells and high red blood cells with +1 bacteria. Patient denies any abdominal pain and has no prior history of kidney stones. Patient does have symptoms of dysuria. Symptoms are more consistent with a urinary tract infection. Patient will be started on IV Rocephin the emergency department discharged home on Keflex. Patient and family are comfortable the plan for treatment and discharge. All questions concerns were addressed. Differential Diagnosis Differential Diagnosis: Colitis, diverticulitis, bladder obstruction, kidney stones, UTI Vital Signs Vital Signs: Vital Signs Temperature 97.3 F L 07/05/24 07:03 Pulse Rate 62 07/05/24 07:03 Respiratory Rate 18 07/05/24 07:03 Blood Pressure 142/70 H 07/05/24 07:03 Pulse Oximetry 97 07/05/24 07:03 Oxygen Delivery Room Air 07/05/24 07:03 Temperature 97.3 F L 07/05/24 07:03 Pulse Rate 60 07/05/24 09:15 Respiratory Rate 20 07/05/24 09:15 Blood Pressure 112/63 07/05/24 09:15 Pulse Oximetry 99 07/05/24 09:15 Oxygen Delivery Room Air 07/05/24 07:03 Lab Data Lab results reviewed: Yes I reviewed the patient's lab results. 07/05/24 07:34 07/05/24 07:34 Labs: Lab Results 07/05/24 07/05/24 Range/Units 07:22 07:34 WBC 15.0 H (4.5-10.0) K/mm3 RBC 4.45 (4.2-5.4) M/mm3 Hgb 12.8 (12.0-15.0) g/dL Hct 40.1 (37.0-47.0) % MCV 90.1 (80-100) fl MCH 28.8 (26-34) pg MCHC 31.9 L (32-36) g/dl RDW 12.8 (11.5-14.5) % Plt Count 253 (150-375) k/mm3 MPV 9.8 (7.4-10.4) fl Immature Gran % (Auto) 0.3 (0-0.5) % Neut % (Auto) 72.3 (45.5-73.1) % Lymph % (Auto) 20.9 (18.3-44.2) % [place] % (Auto) 5.5 (2.6-8.5) % Eos % (Auto) 0.5 (0-4.4) % Baso % (Auto) 0.5 (0.2-1.2) % Lymph # (Auto) 3.13 (0.9-3.2) K/mm3 [place] # (Auto) 0.8 H (0.1-0.6) K/mm3 Eos # (Auto) 0.1 (0-0.3) K/mm3 Baso # (Auto) 0.1 (0.0-0.1) K/mm3 Abs Immat Gran (auto) 0.05 H (0.00-0.031) K/mm3 Absolute Neuts (auto) 10.8 H (1.3-6.7) K/mm3 Absolute Nucleated RBC 0.000 (0.0-0.012) K/mm3 Nucleated RBC % 0.0 (0.0-0.2) % PT 13.7 (11.1-14.7) Seconds INR 1.0 APTT 26.9 (22.3-36.8) Seconds Sodium 142 (137-145) mmol/L Potassium 3.6 (3.4-5.0) mmol/L Chloride 101 (98-107) mmol/L Carbon Dioxide 32 H (22-30) mmol/L Anion Gap 9 (4-12) mmol/L BUN 26 H (7-17) mg/dL Creatinine 1.07 H (0.7-1.0) mg/dL Estim Creat Clear Calc 38 ml/min Estimated GFR 50 L (59 - ) Glucose 97 (65-110) mg/dL Calcium 9.2 (8.4-10.2) mg/dL Total Bilirubin 0.5 (0.2-1.3) mg/dL AST 33 (14-36) U/L ALT 36 H (6-35) U/L Alkaline Phosphatase 88 (38-126) U/L Total Protein 8.0 (6.3-8.2) g/dL Albumin 4.5 (3.5-5.1) g/dL Urine Color Red H (Yellow) Urine Appearance Turbid H (Clear) Urine pH 5.0 (5.0-9.0) Ur Specific [place] 1.018 (1.001-1.035) Urine Protein 3+ H (Negative) mg/dL Urine Glucose (UA) Negative (Negative) mg/dL Urine Ketones TNP Ur Blood (Man) 2+ H (Negative) Urine Nitrate Positive H (Negative) Urine Bilirubin TNP Urine Urobilinogen TNP Add Ur Microanalysis Reviewed Leukocyte Esterase Rfl 3+ H (Negative) PHILL/UL Urine RBC >100 H (0-2) /hpf Urine WBC >100 H (0-3) /hpf Ur Squamous Epith Cells Few (Few) /hpf Urine Bacteria 1+ H /hpf Urine Casts 0-2 Discharge Plan Discharge Clinical Impression: Urinary tract infection, Hematuria Patient Disposition: Home Condition: Stable Instructions: Antibiotic Form, Urinary Tract Infection in Women (ED), Hematuria (ED) Additional Instructions: Drink plenty of water. Antibiotic as directed until completed. Have close follow-up with your primary care physician to ensure resolution of the urinary tract infection and hematuria. If you have any worsening symptoms then please call or return to the emergency department. Patient Language: Hebrew Prescriptions: New cephalexin 500 mg capsule 500 mg PO Q8H 7 Days Qty: 21 0RF No Action zolpidem 10 mg tablet 10 mg PO QHS escitalopram oxalate 5 mg tablet 2.5 mg PO DAILY propranolol 10 mg tablet 10 mg PO DAILY ondansetron 4 mg tablet,disintegrating 4 mg PO TID PRN pravastatin 40 mg tablet 40 mg PO DAILY hydrochlorothiazide 25 mg tablet 25 mg PO DAILY Linzess 145 mcg capsule 145 mcg PO DAILY clonazepam 1 mg tablet 1 mg PO TID Follow-up/Referrals: PHYSICIAN NOT ON STAFF,NONSTAFF [Primary Care Provider] -
[2024-07-05 08:19] LABS: Partial Thromboplastin Time 26.9 Seconds (22.3-36.8); Prothrombin Time 13.7 Seconds (11.1-14.7)
[2024-07-05 09:15] VITALS: BP 112/63; PULSE 60; RESP 20; O2SAT 99
== END 2024-07-05 09:15 | disposition home or self-care (01) ==
PROVIDERS: Emergency Provider Emergency Medicine
DX: N39.0 Urinary tract infection, site not specified (principal); R31.9 Hematuria, unspecified; I10 Essential (primary) hypertension; E78.00 Pure hypercholesterolemia, unspecified; K21.9 Gastro-esophageal reflux disease without esophagitis; F41.9 Anxiety disorder, unspecified; F32.A Depression, unspecified; Z79.899 Other long term (current) drug therapy
CPT/HCPCS: 36415; 80053; 81001; 85025; 85610; 85730; 87086; 87186; 96365; 99284; J0696

== ENCOUNTER 2024-08-10 13:12 | Emergency (ER) | payer MEDICARE, OTHER, SELFPAY ==
--- NOTE | ~2024-08-10 | CT_ITS ---
EXAMINATION: CT brain wo con DATE: 08/10/2024 16:15 INDICATION: headache . TECHNIQUE: Computed tomography (CT) of the head was performed without intravenous contrast. The mA wa s adjusted according to patient size. Iterative reconstruction technique was employed. The dose-lengt h product was 605.33 mGy-cm. COMPARISON: None. FINDINGS: No acute intracranial hemorrhage or extra-axial fluid collection. No hydrocephalus, mass, or herniation. No acute ischemic infarct. Unremarkable dural venous sinus attenuation. No acute osseous abnormality. The aerated spaces are clear. Mild atrophy and chronic white matter change. Atherosclerotic intracranial calcification. Bilateral l ens replacements. IMPRESSION: No acute intracranial process. Reviewed, dictated and finalized at location K.
--- OUTSIDE RECORDS SUMMARY | 2024-08-10 13:23 | XMS_ITS | Encounter Summary ---
Author Organization [facility] Healthcare Address [address] [place] [address] Care Team Providers Care Fast Food Services Manager Name Role Phone Carlos Eduardo Chappell MD Primary Care Provide r Leatha Lewis MD Unavailable Heath Whitt MD Unavailable Adolfo Kilgore MD Unavailable Sukhwinder Hoffman NP Unavailable [phone] Reason for Visit * Reason Onset Date Comments leg pain 08/04/2024 Encounter Details Date Type Department Care Team (Late st Contact Info) Description 08/04/2024 Nurse Triage Family Care at [facility] [id number] [address] Carlos Eduardo Chappell MD [address] [place] [address] [address] [place] [address] Social History Tobacco Use Types Packs/Day [...] often do you attend chur ch or mu-ism services? 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 Pain from the top of the leg to the knee. Pain is on the side of the legand extends down to the knee. The leg has been hurting about a week. It is continually worsening. It is moderate to severe now. Some positions do not hurt as much but getting in bed and pressure on that side hurts worse. No redness, blisters, warmth. Non tender to touch. Able to walk but hurts at first may limp. No fevers. No swelling. Certain positions will relieve the discomfort. Recently, pt was on an antibiotic for UTI so could not get her shoulder steroid shot so she could not move well sojust laid in bed a lot. She wonders if that made this act up. Pt was laid up for about a week or a little more due to not being able to get the shot. Provider contacted via secure chat for ED disposition consult. Recommendation from provider:Send [facility]/ Pt advised to be seen in . She will go to her local . Pt advised to have someone drive her if legs is in pain. For UTI, drink plenty of water, cranberry juice, wipe front to back. Pt has had 4 UTI in the past 2-3 months. Pt is currently on an antibiotic for UTI and is improving.Please call pt to advise if she should see a urologist or other care recommendations. Disposition Go to ED/UCC Now (or to Office With PCP Approval) Reason for Disposition Thigh or calf pain in only one leg and present > 1 hour Protocols Used Leg Laal-Lbdht-KC * Telephone Encounter - Tracy Butterfield RN - 08/04/2024 9:28 AM CDT Regarding: right leg pain- severe ----- Message from Jackie Tong sent at 08/04/2024 9:12 AM CDT ----- Symptom Based Call Chief Complaint(s): right leg pain- severe Duration: 3-4 days What type of symptom(s) is the patient experiencing? Red Flag. Is the patient concerned they are experiencing a medical emergency requiring an ambulance? No Additional Comments: patient states she has severe pain at the top of her right leg that goes down to the knee. No redness and warm or lumps. On Saturday She was seen at an urgent care in [place] for a positive for a uti, she was given cephalexin for 7 days ago. She is starting to feel like its helping. Recently she has gotten 4 urinary tract infections Does message need to be routed? Yes-Action Needed documented in this encounter Plan of Treatment Not on file documented as of this encounter Visit Diagnoses Not on filedocumented in this encounter Care Teams Fast Food Services Manager Relationship Specialty Start [place] [address] [facility] [address] [place] [address] PCP - General Family Medicine 04/15/18 Leatha Lewis MD [address] [facility] DIV IM GASTROENTEROLOGY, [facility] [address] [place] [address] Referring Physician Gastroenterology 11/09/21 [place] [address] [facility] [address] [place] [address] Consulting Physician Psychiatry 02/27/22 Adolfo Kilgore MD [address] DIV IM BONE MARROW TRANSPLANT, [address] [place] [address] Consulting Physician Medical Oncology 03/07/22 Sukhwinder Hoffman NP [address] [id number] Nurse Practitioner Psychiatry 05/07/24 documented as of this encounter
--- OUTSIDE RECORDS SUMMARY | 2024-08-10 13:23 | XMS_ITS | Encounter Summary ---
Author Organization [facility] Healthcare Address [address] [place] [address] Care Team Providers Care Credit Operations Processor Name Role Phone Carlos Eduardo Chappell MD Primary Care Provide r Leatha Lewis MD Unavailable [phone] Heath Whitt MD Unavailable Adolfo Kilgore MD Unavailable Sukhwinder Hoffman NP Unavailable [phone] Encounter Details Date Type Department Care Team (Late st Contact Info) Description 01/12/2024 E-Visit Family Care at [facility] [address] [address] Carlos Eduardo Chappell MD [address] [place] [id number] Clonazepam Social History Tobacco Use Types [...] often do you attend chur ch or jewish services? More than 4 times per year 11/21/2023 Do you belong to any clubs o r organizations such as advent groups, unions, fraternal or athletic groups, or [...] place to sleep or slept in a intermediate (including now)? No 07/18/2020 Personal Safety Answer Date Recorded Have you ever been in or are you currently in a harmful physical or emotional relationship or is someone making you feel afraid or unsafe? 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 Gender Identity Not on file Sexual Orientation Not on file documented as of this encounter Plan of Treatment Not on file documented as of this encounter Visit Diagnoses Not on filedocumented in this encounter Care Teams Credit Operations Processor Relationship Specialty Start [place] [address] [address] [place] [address] PCP - General Family Medicine 04/15/18 Leatha Lewis MD [address] [facility] [address] DIV IM GASTROENTEROLOGY, [facility] [address] [place] [address] Referring Physician Gastroenterology 11/09/21 [place] [address] [address] [facility] [address] [place] [address] Consulting Physician Psychiatry 02/27/22 Adolfo Kilgore MD [address] DIV IM BONE MARROW TRANSPLANT, [address] [place] [address] Consulting Physician Medical Oncology 03/07/22 Sukhwinder Hoffman, ORIENTAL RUG STRETCHER [address] [place] [address] Nurse Practitioner Psychiatry 05/07/24 documented as of this encounter
--- OUTSIDE RECORDS SUMMARY | 2024-08-10 13:24 | XMS_ITS | Referral Summary ---
Author Organization [facility] Address [address] [place] [address] Phone Care Team Providers Care Heavy Equipment Service Technician Name Role Phone Carlos Eduardo Chappell MD Primary Care Provide r Leatha Lewis MD Unavailable [phone] Heath Whitt MD Unavailable [phone] Adolfo Kilgore MD Unavailable Sukhwinder Hoffman NP Unavailable [phone] Encounters Date Type Department Care Team Description 08/04/2024 Nurse Triage Family Care at [address] [address] Carlos Eduardo Chappell MD 07/29/[address] [facility] Orthopedics and Sports Medicine at [address] [address] Yemi Roman MD 07/23/2024 11:37 AM CDT - 07/23/2024 11:59 PM CDT Hospital Encounter [facility] [address] [place] [address] Ro Nguyen Md Adhesive capsulitis of left shoulder Discharge Disposition: Discharge to home or self care 07/16/[address] [facility] Orthopedics and Sports Medicine at [address] [address] Yemi Roman MD Adhesive capsulitis of left shoulder (Primary Dx) 07/16/2024 1:00 PM [address] Office Visit [facility] Orthopedics and Sports Medicine at [address] [place] [address] Yemi Roman MD Primary osteoarthritis of left shoulder (Primary Dx); Synovitis of left shoulder 07/07/2024 Orders Only [facility] G[facility]enter[facility] [address] [place] [address] [place] [address] JamieDipti castkki Abdominal pain (Primary Dx); Chronic abdominal pain 07/01/2024 Results Follow-Up Family [facility] at [address] [address] Katia Gupta NP XR Shoulder Left 2+ Vw 07/01/2024 1:45 PM CDT - 07/01/2024 11:59 PM CDT Hospital Encounter [facility] [address] [place] [address] Acute pain of left shoulder Discharge Disposition: Discharge to home or self care 07/01/2024 1:15 PM CDT Office Visit [facility] at [address] [address] Katia Gupta NP Acute pain of left shoulder (Primary Dx) 06/18/2024 Telephone Family Care at [address] [phone] Carlos Eduardo Chappell MD from Last 3 Months Allergies Active Allergy [...] or vomiting 90 tablet 04/21/19 25 Active zolpidem (AMBIEN) 10 mg tabletIndications: Sleep-Onset Insomnia Take 1 tablet (10 mg total) by mouth nightly as needed for sleep 30 tablet 06/09/19 25 Active hydrocortisone (ANUSOL-HC) 2.5 % rectal cream [...] (DESYREL) 50 mg tablet 07/01/19 25 Active clonazePAM (KlonoPIN) 1 mg tablet Take 1 tablet (1 mg total) by mouth 3 (three) times a day as needed for anxiety 90 tablet 07/15/19 25 Active cephalexin (KEFLEX) 500 mg capsule Take 1 capsule (500 mg total) by mouth 2 (two) times a day 07/16/19 25 Active meloxicam (MOBIC) 15 mg tablet Take 1 tablet (15 mg total) by mouth daily 30 tablet 1 07/28/19 25 025 Active clonazePAM (KlonoPIN) 1 mg tablet Take 1 tablet (1 mg total) by mouth 3 (three) times a day as needed for anxiety 90 tablet 06/09/19 25 025 Discontin ued(Reord er) Active Problems [...] 03/26/2024 Assessment & Plan (03/26/2024 4:23 PM ROUGE SIFTER): BP Readings from Last 3 Encounters: 03/26/24 125/74 02/25/24 142/75 12/16/23 127/70 Controlled/stable, continue current management Continue hydrochlorothiazide Adjustment disorder with mixed anxiety and depre ssed mood 03/26/2024 Assessment & Plan (03/26/2024 4:21 PM ROUGE SIFTER): Overall, despite the patient's significant anxiety and stress at this time, we agreed that no change in medication is needed specifically as it relates to her daytime anxiety and depression She will continue the clonazepam p.r.n. She will continue to rely on her yazidism and idalmis for support I did also provide her with the name of [address] [facility] psychiatrists, as the current Psychiatry referral she has is strictly related to her GI issues Insomnia due to psychological stress 03/26/2024 Assessment & Plan (03/26/2024 4:22 PM ROUGE SIFTER): Since the primary disturbance in the patient's [...] 12/25 Assessment & Plan (03/26/2024 4:16 PM ROUGE SIFTER): Controlled/stable, continue current management Await upcoming evaluation by mental health professional/psychiatry Continue current medical treatment including Linzess Abdominal pain, chronic, epigastric 06/05/2021 Assessment & Plan (06/19/2021 8:33 AM CDT): Dr. Cancino Gastroenterology-referring to THEE Shin appointment October [address]- Postoperative changes of cholecystectomy with increased pneumobilia and common bile duct dilatation without an associated obstructing mass likely secondary to reservoir effect and ampullary procedure. Recommend correlation with liver function tests and continued attention on follow-up imaging. Common bile duct stone 08/12/2020 Overview (08/12/2020): Added automatically from request for surgery [id number] Abdominal pain 07/11/2020 Common bile duct dilation 07/11/2020 Assessment & Plan (03/26/2024 4:17 PM ROUGE SIFTER): Thus far this has been a benign issue for the patient other than the acute gallbladder issues She will continue to follow up closely with GI for ongoing evaluation and treatment recommendations Hyperlipidemia 07/11/2020 Assessment & Plan (03/26/2024 4:16 PM ROUGE SIFTER): Continue statin therapy Gastroesophageal reflux dise ase with esophagitis without hemorrhage 07/07/2020 Overview (07/07/2020): Added automatically from request for surgery [id number] Assessment & Plan (03/26/2024 4:16 PM ROUGE SIFTER): Controlled/stable, continue current management Continue PPI therapy Follow up with GI CKD (chronic kidney disease) stage 2, GFR 60-89 ml/min 02/18/2020 Assessment & Plan (03/26/2024 4:17 PM ROUGE SIFTER): Stable, monitor Hypertension 04/15/2018 Resolved Problems Problem [...] (07/11/2020): Added automatically from request for surgery [id number] Encounter for screening colonoscopy 07/07/2020 09/15/2020 Overview (07/07/2020): Added automatically from request for surgery [id number] Elevated liver enzymes 09/05/201909/15 Overview (09/05/2019): Found [...] often do you attend chur ch or holiness services? More than 4 times per year 11/21/2023 Do you belong to any clubs o r organizations such as yazidism groups, unions, fraternal or athletic groups, or [...] place to sleep or slept in a [place] facility (including now)? No 07/18/2020 Personal Safety Answer Date Recorded Have you ever been in or are you currently in a harmful physical or emotional relationship or is someone making you feel afraid or unsafe? Denies 12/11/2023 Comments No Sex and Gender Information Value Date Recorded Sex Assigned at Not on file Legal Sex Female 12:59 AM ROUGE SIFTER Gender Identity Not on file Sexual Orientation Not on file Last Filed Vital Signs Vital Sign Reading Time Taken Comments Blood Pressure 124/78 07/01/2024 1:08 PM CDT Pulse 54 07/01/2024 1:08 PM CDT Temperature 36.8 C (98.2 F) 02/25/2024 12:31 PM ROUGE SIFTER Respiratory Rate 18 12/16/2023 3:49 PM CDT Oxygen Saturation 96% 07/01/2024 1:08 PM CDT Inhaled Oxygen Concentration - - Weight 71.7 kg (158 lb) 07/16/2024 1:33 PM CDT Height 165.1 cm (5' 5) 07/16/2024 1:33 PM CDT Body Mass Index 26.29 07/16/2024 1:33 PM CDT Plan of Treatment Not on file Medical Devices Implanted Type Area Cascade Operator Device Identifier Shelf Expiration Date Model / Serial / Lot [employer] Abi [id number] Wallflex Permalume 10mm 8.5fr 60mm 194cm Fully Cover Catheter - [id number] Implanted:Qty: 1 on 07/11/2020 by Carlo Cancino MD at [facility] [employer] 05/30/2022 [id number] / / [id number] Procedures Procedure Name Priority Date/Time Associated Diagnosis Comments FLUORO GUIDED INJECTION SHOULDER LEFT Schedule Routine, Read Routine (OP Routine) 07/23/2024 12:23 PM CDT Adhesive capsulitis of left shoulder XR SHOULDER LEFT 2 OR MORE VIEWS Schedule Routine, Read Routine (OP Routine) 07/01/2024 2:14 PM CDT Acute pain of left shoulder HEPATITIS C ANTIBODY Routine 07/17/2023 11:28 AM CDT Abdominal pain Nausea SCREENING MAMMOGRAM BILATERAL W DMITRY Schedule Routine, Read Routine (OP Routine) 03/21/2023 12:56 PM ROUGE SIFTER Encounter for screening mammogram for malignant neoplasm of breast DEXA AXIAL SKELETON BONE DENSITY 1 OR MORE SITES Schedule Routine, Read Routine (OP Routine) 03/06/2022 1:16 PM ROUGE SIFTER Asymptomatic menopausal state COLONOSCOPY 09/14/2020 9:31 AM CDT from Last 3 Months or Most Recently Relevant to Health Maintenance Results * FL Fluoro Guided Injection Shoulder Left (07/23/2024 12:23 PM CDT) Anatomical Region Laterality Modality Shoulder Left Computed Radiogr aphy 07/23/2024 4:03 PM CDT Impressions 07/23/2024 4:03 PM CDT THERE IS FACTORY INTRA-ARTICULAR INJECTION OF 80 MG OF DEPO-MEDROL. FLUORO TIME: 1.5 minutes CONTRAST: 5 mL of Optiray 320 Electronically signed by: Lewis Baez M.D. Narrative 07/23/2024 4:03 PM CDT EXAMINATION: FL FLUORO GUIDED INJECTION SHOULDER LEFT HISTORY: Adhesive capsulitis ORDER DATE: 07/23/2024 12:15 PM HISTORY: A brief history was obtained from the patient consisting of the timing of onset of the pain and possible cause and the quality location of the pain. The patient denies being on anticoagulants and denies any allergy to the types of contrast to be used or to any local anesthetics. TECHNIQUE: Informed consent was obtained from the patient, with the risks and benefits explained and discussed further if requested by the patient. A timeout procedure was performed with procedural staff present. The patient was placed supine on the fluoroscopy table. The skin over the selected point of access was sterilely prepped and after a 2-3 minute delay was prepped again. Maximum sterile barriers were used including mask, cap, gown, gloves , and the area was sterilely prepped and draped. With aseptic technique, 1 percent Xylocaine was injected into the skin and progressively into the subcutaneous tissue. After this, the joint space was quickly accessed with a 20-gauge spinal needle using fluoroscopic guidance and intra-articular needle position was documented by the injection of intra-articular iodinated contrast followed by intra-articular injection of 80 mg of Depo-Medrol. The patient tolerated the procedure well and there were no complications. FINDINGS: There was satisfactory opacification of the glenohumeral joint. Procedure Note Lewis Baez MD - 07/23/2024 EXAMINATION: FL FLUORO GUIDED INJECTION SHOULDER LEFT HISTORY: Adhesive capsulitis ORDER DATE: 07/23/2024 12:15 PM HISTORY: A brief history was obtained from the patient consisting of the timing of onset of the pain and possible cause and the quality location of the pain. The patient denies being on anticoagulants and denies any allergy to the types of contrast to be used or to any local anesthetics. TECHNIQUE: Informed consent was obtained from the patient, with the risks and benefits explained and discussed further if requested by the patient. A timeout procedure was performed with procedural staff present. The patient was placed supine on the fluoroscopy table. The skin over the selected point of access was sterilely prepped and after a 2-3 minute delay was prepped again. Maximum sterile barriers were used including mask, cap, gown, gloves , and the area was sterilely prepped and draped. With aseptic technique, 1 percent Xylocaine was injected into the skin and progressively into the subcutaneous tissue. After this, the joint space was quickly accessed with a 20-gauge spinal needle using fluoroscopic guidance and intra-articular needle position was documented by the injection of intra-articular iodinated contrast followed by intra-articular injection of 80 mg of Depo-Medrol. The patient tolerated the procedure well and there were no complications. FINDINGS: There was satisfactory opacification of the glenohumeral joint. IMPRESSION: THERE IS FACTORY INTRA-ARTICULAR INJECTION OF 80 MG OF DEPO-MEDROL. FLUORO TIME: 1.5 minutes CONTRAST: 5 mL of Optiray 320 Electronically signed by: Lewis Baez M.D. us Yemi Roman MD IMG FLUOROSCOPY PROCEDURES Fi nal Result * XR Shoulder Left 2+ Vw (07/01/2024 [...] signed by: Wesley Moody M.D. Katia Gupta HYDRO GENERATION SUPERVISOR IMG XR PROCEDURES Final Res ult * [...] CDT Leatha Lewis MD LAB MICROBIOLOGY - GENER AL ORDERABLES Edited Result - Final NOREEN [address] [address] [place] [address] * SCREENING MAMMOGRAM BILATERAL W DMITRY (03/21/2023 12:56 PM ROUGE SIFTER) Anatomical Region Laterality Modality Breast Bilateral Mammography 03/21/2023 1:26 PM ROUGE SIFTER Impressions 03/21/2023 1:26 PM ROUGE SIFTER No evidence of malignancy in either breast. FINAL ASSESSMENT: BI-RADS Category 1: Negative. RECOMMENDATION: Recommend return for annual screening mammogram in 12 months. Electronically signed by: MD Christine GLOVER 03/21/2023 1:26 PM ROUGE SIFTER EXAMINATION: BILATERAL SCREENING MAMMOGRAM COMPARISON: Multiple prior [...] 1 or 2 Site (03/06/2022 1:16 PM ROUGE SIFTER) Anatomical Region Laterality Modality Body N/A Digital Radiogra phy 03/06/2022 1:37 PM ROUGE SIFTER Impressions 03/06/2022 2:14 PM ROUGE SIFTER 1. The bone mineral density of the [...] -2.0 is below the expected range for age. A Z-score below the expected range for age in a patient with recent fractures and/or chronic corticosteroid treatment is consistent with a diagnosis of osteoporosis. B) In post menopausal women and males over 50, comparison of the measured bone mineral density with the average value in young normal subjects (the T-score) has been found to be useful in [...] Talat Goldman M.D. Narrative 03/06/2022 2:14 PM ROUGE SIFTER BONE DENSITOMETRY OF THE SPINE AND HIP [...] -2.0 is below the expected range for age. A Z-score below the expected range for age in a patient with recent fractures and/or chronic corticosteroid treatment is consistent with a diagnosis of osteoporosis. B) In post menopausal women and males over 50, comparison of the measured bone mineral density with the average value in young normal subjects (the T-score) has been found to be useful in [...] Cancino MD - 09/14/2020 9:31 AM CDT [facility] Patient Name: Mayelin [...] Barajas(Anesthesia Staff), Gianni Lucero RN, Mer Herrera, Costume Design Teacher Referring MD: Carlos Eduardo Chappell M.D. Medicines: [...] bowel preparation was evaluated using the BBPS ([place] Bowel Preparation Scale)with scores of: Right Colon [...] for surveillance. Procedure Code(s): --- Professional --- 26746, Colonoscopy, flexible; with removal of tumor(s), polyp(s), or other lesion(s) by snare technique 79258, 59, Colonoscopy, flexible; with biopsy,single or multiple CPT copyright 2019 [employer]. All rights reserved. The codes documented in this report are preliminary and upon bushel worker reviewmay be revised to meet current compliance requirements. Electronically signed by Carlo Cancino MD Carlo Cancino M.D. 09/14/2020 10:10:51 AM Number of Addenda: 0 Note Initiated On: 09/14/2020 9:31 AM Carlo Cancino MD ENDOSCOPY PROCEDURES Final Re sult from Last 3 Months or Most Recently Relevant to Health Maintenance Insurance MEDICARE [employer] [facility]IC[facility] [employer] [place] [facility] MEDICARE [facility] Address: [address] [address] [place] [address] Advance Directives For more information, please contact: [phone] * Full Code (Latest Code Status on File) Date Activated Date Inactivated Comments 12/11/2023 9:06 AM 12/11/2023 3:32 PM * Full Code Date Activated Date Inactivated Comments 11/20/2023 7:08 AM 11/21/2023 10:35 PM * Full Code Date Activated Date Inactivated Comments 07/11/2020 6:20 AM 07/15/2020 5:07 PM Care Teams Heavy Equipment Service Technician Relationship Specialty Start [place] [address] [facility] [address] [place] [address] PCP - General Family Medicine 04/15/18 Leatha Lewis MD [address] [facility] DIV IM GASTROENTEROLOGY, [address] [place] [address] Referring Physician Gastroenterology 11/09/21 [place] [address] [address] [facility] [address] [place] [address] Consulting Physician Psychiatry 02/27/22 Adolfo Kilgore, MD [address] DIV IM BONE MARROW TRANSPLANT, [address] [place] [address] Consulting Physician Medical Oncology 03/07/22 Sukhwinder Hoffman NP [address] [address] Nurse Practitioner Psychiatry 05/07/24
--- OUTSIDE RECORDS SUMMARY | 2024-08-10 13:24 | XMS_ITS | Clinical Summary ---
Author Organization [facility] Address [address] [place] [address] Phone Care Team Providers Care Shop Laborer Name Role Phone Carlos Eduardo Chappell MD Primary Care Provide r Leatha Lewis MD Unavailable Heath Whitt MD Unavailable [phone] Adolfo Kilgore MD Unavailable Sukhwinder Hoffman NP Unavailable [phone] Allergies Active Allergy Reactions Criticality Noted [...] 03/26/2024 Assessment & Plan (03/26/2024 4:23 PM LOSS PREVENTION ASSOCIATE): BP Readings from Last 3 Encounters: 03/26/24 125/74 02/25/24 142/75 12/16/23 127/70 Controlled/stable, continue current management Continue hydrochlorothiazide Adjustment disorder with mixed anxiety and depre ssed mood 03/26/2024 Assessment & Plan (03/26/2024 4:21 PM LOSS PREVENTION ASSOCIATE): Overall, despite the patient's significant anxiety and stress at this time, we agreed that no change in medication is needed specifically as it relates to her daytime anxiety and depression She will continue the clonazepam p.r.n. She will continue to rely on her cheondoism and idalmis for support I did also provide her with the name of 1 of our [facility] psychiatrists, as the current Psychiatry referral she has is strictly related to her GI issues Insomnia due to psychological stress 03/26/2024 Assessment & Plan (03/26/2024 4:22 PM LOSS PREVENTION ASSOCIATE): Since the primary disturbance in the patient's [...] 12/25 Assessment & Plan (03/26/2024 4:16 PM LOSS PREVENTION ASSOCIATE): Controlled/stable, continue current management Await upcoming evaluation by mental health professional/psychiatry Continue current medical treatment including Linzess Abdominal pain, chronic, epigastric 06/05/2021 Assessment & Plan (06/19/2021 8:33 AM CDT): Dr. Cancino Gastroenterology-referring to [facility] appointment October [address]- Postoperative changes of cholecystectomy with increased pneumobilia and common bile duct dilatation without an associated obstructing mass likely secondary to reservoir effect and ampullary procedure. Recommend correlation with liver function tests and continued attention on follow-up imaging. Common bile duct stone 08/12/2020 Overview (08/12/2020): Added automatically from request for surgery [id number] Abdominal pain 07/11/2020 Common bile duct dilation 07/11/2020 Assessment & Plan (03/26/2024 4:17 PM LOSS PREVENTION ASSOCIATE): Thus far this has been a benign issue for the patient other than the acute gallbladder issues She will continue to follow up closely with GI for ongoing evaluation and treatment recommendations Hyperlipidemia 07/11/2020 Assessment & Plan (03/26/2024 4:16 PM LOSS PREVENTION ASSOCIATE): Continue statin therapy Gastroesophageal reflux dise ase with esophagitis without hemorrhage 07/07/2020 Overview (07/07/2020): Added automatically from request for surgery [id number] Assessment & Plan (03/26/2024 4:16 PM LOSS PREVENTION ASSOCIATE): Controlled/stable, continue current management Continue PPI therapy Follow up with GI CKD (chronic kidney disease) stage 2, GFR 60-89 ml/min 02/18/2020 Assessment & Plan (03/26/2024 4:17 PM LOSS PREVENTION ASSOCIATE): Stable, monitor Hypertension 04/15/2018 Resolved Problems Problem [...] (07/11/2020): Added automatically from request for surgery [id number] Encounter for screening colonoscopy 07/07/2020 09/15/2020 Overview (07/07/2020): Added automatically from request for surgery [id number] Elevated liver enzymes 09/05/201909/15 Overview (09/05/2019): Found [...] Description 08/04/2024 Nurse Triage Family Care at [address] [phone] Carlos Eduardo Chappell MD 07/29/2024 Telephone [facility] Medicine at [address] [phone] Yemi Roman MD 07/23/2024 11:37 AM CDT - 07/23/2024 11:59 PM CDT Hospital Encounter [facility] [id number] [place] [address] Ro Nguyen Md Adhesive capsulitis of left shoulder Discharge Disposition: Discharge to home or self care 07/16/2024 1:00 PM CDT Office Visit [facility] at [address] [phone] Yemi Roman MD Primary osteoarthritis of left shoulder (Primary Dx); Synovitis of left shoulder 07/16/2024 Orders Only [facility] at [address] [phone] Yemi Roman MD Adhesive capsulitis of left shoulder (Primary Dx) 07/07/2024 Orders Only [facility] Gastroenterology [address] [place] [address] [address] [place] [address] [place] [address] Lynne Slaughter Abdominal pain (Primary Dx); Chronic abdominal pain 07/01/2024 1:45 PM CDT - 07/01/2024 11:59 PM CDT Hospital Encounter [facility] [address] [place] [address] Acute pain of left shoulder Discharge Disposition: Discharge to home or self care 07/01/2024 1:15 PM CDT Office Visit [facility] at [address] [place] [phone] Katia Gupta NP Acute pain of left shoulder (Primary Dx) 07/01/2024 Results Follow-Up [facility] at [address] [phone] Katia Gupta NP XR Shoulder Left 2+ Vw 06/18/2024 Telephone [facility] at [address] [phone] Carlos Eduardo Chappell MD from Last 3 Months Immunizations Immunization Administration [...] last one 04/2021 SECTION UPPER GASTROINTESTINAL ENDOSCOPY FLUORO GUIDED INJECTION SHOU LDER LEFT 07/23/2024 Left Medical History Medical History Date Comments Anxiety Depression Hypertension Tremors of nervous system Hiatal hernia Psoriasis GERD (gastroesophageal reflux disease) Hemorrhoids Hyperlipidemia Transaminitis 07/11/2020 Hyperbilirubinemia 07/11/2020 Encounter for screening colonoscopy 07/07/2020 Added automatically from request for surgery [id number] Elevated liver enzymes 09/05/2019 Found dur ing ED visit 08/30/2019 - CT scan negative, needs repeat labs for monitoring Acute kidney injury superimp osed on chronic kidney disease 07/11/2020 Septic shock (HCC) 07/11/2020 Cholangitis (HCC) 07/10/2020 Added automati krishan from request for surgery [id number] Abnormal CT scan of lung 05/30/2021 Nonspec ific nodular pleural thickening May 2021 - recommend repeat in 3-6 months Generalized anxiety disorder 07/31/2021 Moderate episode of recurren t major depressive disorder (HCC) 08/30/2022 Essential tremor 04/15/2018 Family History Medical History Relation Name Comments Bladder Cancer Brother Prostate cancer Brother Cancer Father Gordy Stone Lung cancer Father Gordy Stone Diabetes Mother Zulma Stone Hypertension Mother Zulma Stone Skin cancer Sister Breast cancer Neg [...] week 11/21/2023 How often do you attend [facility] or pentecostal services? More than 4 times per year 11/21/2023 Do you belong to any clubs o r organizations such as cheondoism groups, unions, fraternal or athletic groups, or [...] place to sleep or slept in a chcf (including now)? No 07/18/2020 Personal Safety Answer Date Recorded Have you ever been in or are you currently in a harmful physical or emotional relationship or is someone making you feel afraid or unsafe? Denies 12/11/2023 Comments No Sex and Gender Information Value Date Recorded Sex Assigned at Not on file Legal Sex Female 12:59 AM LOSS PREVENTION ASSOCIATE Gender Identity Not on file Sexual Orientation [...] 36.8 C (98.2 F) 02/25/2024 12:31 PM LOSS PREVENTION ASSOCIATE Respiratory Rate 18 12/16/2023 3:49 PM CDT Oxygen Saturation 96% 07/01/2024 1:08 PM CDT Inhaled Oxygen Concentration - - Weight 71.7 kg (158 lb) 07/16/2024 1:33 PM CDT Height 165.1 cm (5' 5) 07/16/2024 1:33 PM CDT Body Mass Index 26.29 07/16/2024 1:33 PM CDT Plan of Treatment Health Maintenance [...] history exists Medical Devices Implanted Type Area Mri Technologist Device Identifier Shelf Expiration Date Model / Serial / Lot Charlie App Abi [id number] Wallflex Permalume 10mm 8.5fr 60mm 194cm Fully Cover Catheter - [id number] Implanted:Qty: 1 on 07/11/2020 by Carlo Cancino MD at [facility] [employer] 05/30/2022 [id number] / / [id number] Procedures Procedure Name Priority Date/Time Associated Diagnosis [...] Read Routine (OP Routine) 03/21/2023 12:56 PM LOSS PREVENTION ASSOCIATE Encounter for screening mammogram for malignant neoplasm of breast DEXA AXIAL SKELETON BONE DENSITY 1 OR MORE SITES Schedule Routine, Read Routine (OP Routine) 03/06/2022 1:16 PM LOSS PREVENTION ASSOCIATE Asymptomatic menopausal state COLONOSCOPY 09/14/2020 9:31 AM [...] Degeneration glenohumeral joint Electronically signed by: Wesley Modoy M.D. Narrative 07/01/2024 2:15 PM CDT EXAMINATION: [...] signed by: Wesley Moody M.D. Katia Gupta MANAGER PULMONARY IMG XR PROCEDURES Final Res ult * [...] CDT Leatha Lewis MD LAB MICROBIOLOGY - [facility] AL ORDERABLES Edited Result - Final [facility] [address] Department [place] [address] * SCREENING MAMMOGRAM BILATERAL W DMITRY (03/21/2023 12:56 PM LOSS PREVENTION ASSOCIATE) Anatomical Region Laterality Modality Breast Bilateral Mammography 03/21/2023 1:26 PM LOSS PREVENTION ASSOCIATE Impressions 03/21/2023 1:26 PM LOSS PREVENTION ASSOCIATE No evidence of malignancy in either breast. FINAL ASSESSMENT: BI-RADS Category 1: Negative. RECOMMENDATION: Recommend return for annual screening mammogram in 12 months. Electronically signed by: ALFREDA PRIEST MD Narrative 03/21/2023 1:26 PM LOSS PREVENTION ASSOCIATE EXAMINATION: BILATERAL SCREENING MAMMOGRAM COMPARISON: Multiple prior [...] 1 or 2 Site (03/06/2022 1:16 PM LOSS PREVENTION ASSOCIATE) Anatomical Region Laterality Modality Body N/A Digital Radiogra phy 03/06/2022 1:37 PM LOSS PREVENTION ASSOCIATE Impressions 03/06/2022 2:14 PM LOSS PREVENTION ASSOCIATE 1. The bone mineral density of the [...] Talat Goldman M.D. Narrative 03/06/2022 2:14 PM LOSS PREVENTION ASSOCIATE BONE DENSITOMETRY OF THE SPINE AND HIP [...] Hip (Left) 0.770 -1.4 0.3 Procedure Note Deusamati, Farrokh, MD - 03/06/2022 BONE DENSITOMETRY OF THE [...] Goldman M.D. us Carlos Eduardo Chappell MD IM DXA PROCEDURES Fi nal Result * COLONOSCOPY (09/14/2020 9:31 AM CDT) Anatomical Region Laterality Modality Other Narrative Procedure Note Carlo Cancino MD - 09/14/2020 9:31 AM CDT [facility] Endoscopy Lab Patient Name: Mayelin Mcdaniel [...] Barajas(Anesthesia Staff), Gianni Lucero RN, Mer Herrera, Cannoneer Referring MD: Carlos Eduardo Chappell M.D. Medicines: [...] bowel preparation was evaluated using the BBPS ([place] Bowel Preparation Scale)with scores of: Right Colon [...] for surveillance. Procedure Code(s): --- Professional --- 83676, Colonoscopy, flexible; with removal of tumor(s), polyp(s), or other lesion(s) by snare technique 61237, 59, Colonoscopy, flexible; with biopsy,single or multiple CPT copyright 2019 [employer]. All rights reserved. The codes documented in this report are preliminary and upon aba therapist reviewmay be revised to meet current compliance requirements. Electronically signed by Carlo Cancino MD Carlo Cancino M.D. 09/14/2020 10:10:51 AM Number of Addenda: 0 Note Initiated On: 09/14/2020 9:31 AM Carlo Cancino MD ENDOSCOPY PROCEDURES Final Re sult from Last 3 Months or Most Recently Relevant to Health Maintenance Insurance MEDICARE [facility] [place] [id number] MEDICARE [facility] MEDICARE [employer] [place] [employer] [facility] MEDICARE [facility] Address: [address] [address] [place] [address] Advance Directives For more information, please contact: [phone] * Full Code (Latest Code Status on File) Date Activated Date Inactivated Comments 12/11/2023 9:06 AM 12/11/2023 3:32 PM * Full Code Date Activated Date Inactivated Comments 11/20/2023 7:08 AM 11/21/2023 10:35 PM * Full Code Date Activated Date Inactivated Comments 07/11/2020 6:20 AM 07/15/2020 5:07 PM Care Teams Shop Laborer Relationship Specialty Start [place] [address] [address] [facility] [address] [place] [address] PCP - General Family Medicine 04/15/18 Leatha Lewis MD [address] DIV IM GASTROENTEROLOGY, [facility] [address] [place] [address] Referring Physician Gastroenterology 11/09/21 [place] [address] [facility] [address] [place] [address] Consulting Physician Psychiatry 02/27/22 Adolfo Kilgore MD [address] DIV IM BONE MARROW TRANSPLANT, [address] [place] [address] Consulting Physician Medical Oncology 03/07/22 Sukhwinder Hoffman, MANAGER PULMONARY [address] [place] [address] [place], [place] [id number] Nurse Practitioner Psychiatry 05/07/24
--- OUTSIDE RECORDS SUMMARY | 2024-08-10 13:24 | XMS_ITS | Patient Health Record ---
Author Organization [facility] [employer] Address [address] [facility] [address] [place] [address] Care Team Providers Care Cloud Systems Administrator Name Role Phone Misti CRAWFORD, Carlos Eduardo Primary Care Provider Jennifer Mario Weber Unavailable [phone] Jemma Garcia Unavailable [phone] Maral Flores Unavailable [phone] Sukhwinder Hoffman Unavailable [phone] Allergies Allergen (clinical drug ingredient) Drug/Non Drug [...] Oxazepam (BZO) N 0 - 300 ng/ml 0-jkvlvdgmcw-0,6-fqatuztx-4,3-diphenylpyrrolidine (MENA P) N 0 - 300 ng/ml Methamphetamine (MET) N 0 - 1000 ng/ml Methylenedioxymethamphetamine (MDMA) N 0 - 500 ng/ml Morphine (MOP 300/SBE1201) N 0 - 300 ng/ml Methadone (MTD) N 0 - 300 ng/ml Phencyclidine (PCP) N 0 - 25 ng/ml Nortriptyline (TCA) N 0 - 1000 ng/ml Oxycodone N 0 - 300 ng/ml x N 0 - 300 ng/ml Reason For Referral Reason sleep disturbance. Diagnosis 1 Primary insomnia (F5 1.01) [facility] Referring Provider First Name Sukhwinder Referring Provider Last Name Yasmin Referred Provider Specialty Sleep Medici ne General Notes ChuckieSukhwinder chaudhari Daniel 05/07 02:10:55 PM >patient wakes up feeling unrested. , has tried various medications., currently on zolpidem 10 mg HS, Melatonin 5 mg, diphenhydramine 25mg (2 capsules), Clonazepam 1 mg prn, patient reports she snores., patient reports she occasionally wakes up with headaches., ChuckieSukhwinder chaudhari Daniel 05/07/2024 02:15:29 PM >Note history of using temazepam and trazodone for sleep, which were not effective., Pamela Leslie 05/11/2024 07:39:22 AM >Referral has been sent over. Referral Priority Routine Medications Medication SIG (Take, Route, Frequency, Duration) Notes Start Date End Date Status Ondansetron 4 MG 1 tablet on the tongue and allow to dissolve Orally Once a day for 30 days As needed 04/09/2024 Active Pravastatin Sodium 40 MG Oral for 90 Days Active hydrOXYzine HCl 25 MG 1 tablet Orally four times a day for 30 days 07/31/2024 Active Omeprazole 20 MG 1 capsule 1/2 to 1 hour before morning meal Orally Once a day for 30 day(s) 04/09/2024 Active clonazePAM 1 MG 1 tablet Oral three times a day Active hydroCHLOROthiazide 25 MG Oral for 90 Days Active Propranolol HCl 10 MG TAKE 1 TABLET BY MOUTH DAILY ON AN EMPTY STOMACH NEEDED Oral for 30 Days Active traZODone HCl 50 MG 1-2 tablet at bedtime Orally Once a day for 30 days As needed Active Escitalopram Oxalate 5 MG 1 tablet Orall y Once a day for 30 days Active Zolpidem Tartrate 10 MG Oral for 30 Days Not-Taking Magnesium Glycinate Advanced 120 MG as directed Orally Active Linzess 145 MCG 1 capsule at [...] Notes Problem Moderate major depression, single episode (95589139) Major depressive disorder, single episode, moderate (F32.1) Active confirmed Problem Moderate recurrent major depression (89244185) Major depressive disorder, recurrent, moderate (F33.1) Active confirmed Problem 1709071 Primary insomnia (F51.01) Active confirmed Problem Depression Screening (482292159) Encounter for screening for depression (Z13.31) Active confirmed Problem 80908004 YOSI (generalized anxiety disorder) (F41.1) Active confirmed Vital Signs Heart Rate 67 /min 07/30/2024 Height-cm 167.64 cm 07/30/2024 Blood pressure diastolic 74 mm Hg 07/30/2024 Weight-kg 71.21 kg 07/30/2024 Height 66 in 07/30/2024 Blood pressure systolic 147 mm Hg 07/30/2024 Weight 157 lbs 07/30/2024 BMI 25.34 kg/m2 07/30/2024 Encounters Encounter Location Date Provider Diagnosis [facility], [employer] [address] [address] 04/09/2024 Maral Hinderliter YOSI (generalized anxiety disorder) F41.1 ; Primary insomnia F51.01 and Major depressive disorder, single episode, moderate F32.1 [facility], [email or web address] [address] [address] 04/09/2024 Sukhwinder Club[employer] Primary insomnia F51.01 and YOSI (generalized anxiety disorder) F41.1 [facility], [employer] [address] [place] [address] 04/14/2024 Maral Hinderliter YOSI (generalized anxiety disorder) F41.1 ; Major depressive disorder, single episode, moderate F32.1 and Primary insomnia F51.01 [facility], [employer] [facility] [place] [address] 04/14/2024 Sukhwinder Clubb Primary insomnia F51.01 and YOSI (generalized anxiety disorder) F41.1 [facility], [employer] [address] [place] [address] 04/24/2024 Maral Flores YOSI (generalized anxiety disorder) F41.1 ; Major depressive disorder, single episode, moderate F32.1 and Primary insomnia F51.01 [facility] [employer] [facility], [place] [address] [address] [address] 05/07/2024 Sukhwinder Clubb Major depressive disorder, single episode, moderate F32.1 ; YOSI (generalized anxiety disorder) F41.1 and Primary insomnia F51.01 [facility] [employer] [facility], [place] [address] [address] [facility] [address] [place] [address] 05/27/2024 Sukhwinder Club[employer] YOSI (generalized anxiety disorder) F41.1 ; Primary insomnia F51.01 ; Encounter for screening for depression Z13.31 and Major depressive disorder, single episode, moderate F32.1 [facility] [employer] [facility], [place] [address] [address] 06/03/2024 Maral Flores [facility] [employer] [facility], [place] [address] [address] [address] 06/24/2024 Maral Flores YOSI (generalized anxiety disorder) F41.1 ; Major depressive disorder, single episode, moderate F32.1 ; Primary insomnia F51.01 and Encounter for screening for depression Z13.31 [facility] [employer] [place] [address] [address] 06/30/2024 Mario Cifuentes Encounter for screening for cardiovascular disorders Z13.6 ; Dietary counseling and surveillance Z71.3 ; Encounter for screening for depression Z13.31 ; Nicotine use Z72.0 ; Primary insomnia F51.01 ; YOSI (generalized anxiety disorder) F41.1 and Major depressive disorder, recurrent, moderate F33.1 [facility] [employer] [place] [address] [place] [address] 07/13/2024 Jemma Hemjesus Major depressive disorder, single episode, moderate F32.1 ; YOSI (generalized anxiety disorder) F41.1 ; Encounter for screening for depression Z13.31 and Encounter for screening for cardiovascular disorders Z13.6 [facility] [employer] [place] [address] [facility] [address] [place] [address] 07/24/2024 Jemma Hemjesus Major depressive disorder, recurrent, moderate F33.1 and YOSI (generalized anxiety disorder) F41.1 [facility], [facility] [address] [place] [address] 07/30/2024 Mario Cifuentes Encounter for screening for cardiovascular disorders Z13.6 ; Dietary counseling and surveillance Z71.3 ; Negative depression screening Z13.31 ; Encounter for screening for depression Z13.31 ; Nicotine use Z72.0 ; Primary insomnia F51.01 ; YOSI (generalized anxiety disorder) F41.1 and Major depressive disorder, recurrent, moderate F33.1 [facility] [address] [place] [address] 04/22/2024 Sukhwinder Club[employer] [facility], [facility] [address] [place] [address] 04/27/2024 Maral Flores [facility] [address] [place] [address] 06/03/2024 Maral Flores [facility], [facility] [address] [place] [address] 06/08/2024 Maral Flores [facility], [facility] [address] [place] [address] 06/08/2024 Maral Flores [facility], [facility] [address] [place] [address] 07/24/2024 Mario Cifuentes [facility], [facility] [address] [place] [address] 05/07/2024 Maral Flores [facility], [facility] [address] [place] [address] 05/07/2024 Maral Flores [facility], [facility] [address] [place] [address] 05/13/2024 Maral Flores [facility], [facility] [address] [place] [address] 05/22/2024 Maral Flores [facility], [facility] [address] [place] [address] 05/22/2024 Maral Flores [facility], [facility] [address] [place] [address] 05/22/2024 Maral Flores [facility], [facility] [address] [place] [address] 05/22/2024 Maral Flores [facility], [facility] [address] [place] [address] 05/22/2024 Maral Flores [facility], [facility] [address] [place] [address] 05/25/2024 Maral Flores [facility], [facility] [address] [place] [address] 05/25/2024 Maral Flores [facility], [facility] [address] [place] [address] 06/08/2024 Maral Flores [facility], [facility] [address] [place] [address] 06/08/2024 Maral Flores [facility], [facility] [address] [place] [address] 06/08/2024 Maral Flores [facility], [facility] [address] [place] [address] 06/08/2024 Maral Flores [facility], [facility] [address] [place] [address] 06/08/2024 Maral Flores [facility], [facility] [address] [place] [address] 06/22/2024 Maral Flores [facility], [facility] [address] [place] [address] 06/23/2024 Maral Flores [facility], [facility] [address] [place] [address] 06/23/2024 Maral Flores [facility], [facility] [address] [place] [address] 06/23/2024 Maral Flores [facility], [facility] [address] [place] [address] 07/06/2024 Maral Flores [facility], [facility] [address] [place] [address] 07/07/2024 Mario Cifuentes [facility], [facility] [address] [place] [address] 07/20/2024 Mario Cifuentes Assessments Encounter Date Diagnosis (ICD Code) Assessment Notes Treatment Notes Treatment Clinical Notes Section Notes 04/09/2024 Primary insomnia (ICD-10 - F51.01) Assessment and Plan: Anxiety and Depression Initiate weekly cognitive behavioral therapy sessions to address the patient's anxiety and depression, focusing on coping skills and stress management techniques. Encourage the patient to maintain a support system, including family and episcopal involvement. Insomnia Discuss sleep hygiene techniques and [...] therapy sessions as appropriate, respecting the patient's Lutheran idalmis. Offer a referral to a Lutheran counseling agency if the patient desires a [...] maintain a support system, including family and episcopal involvement. Insomnia Discuss sleep hygiene techniques and [...] therapy sessions as appropriate, respecting the patient's Lutheran idalmis. Offer a referral to a Lutheran counseling agency if the patient desires a [...] and her consideration of moving back to [place] for family proximity. Encourage the patient to discuss these feelings with her family and weigh the moving pros and cons. Offer support and guidance in making these decisions. Social Support Highlight the patient's involvement in episcopal activities and her support network through family [...] and her consideration of moving back to [place] for family proximity. Encourage the patient to discuss these feelings with her family and weigh the moving pros and cons. Offer support and guidance in making these decisions. Social Support Highlight the patient's involvement in episcopal activities and her support network through family [...] screening for cardiovascular disorders (ICD-10 - Z13.6) 07/13/2024 Major depressive disorder, single episode, moderate (ICD-10 - F32.1) 07/24/2024 Major depressive disorder, recurrent, moderate (ICD-10 - F33.1) 07/30/2024 Encounter for screening for cardiovascular disorders (ICD-10 - Z13.6) 07/30/2024 Dietary counseling and surveillance (ICD-10 - Z71.3) 07/13/2024 YOSI (generalized anxiety disorder) (ICD-10 - F41.1) 07/24/2024 YOSI (generalized anxiety disorder) (ICD-10 - F41.1) 04/09/2024 Major depressive disorder, single episode, moderate (ICD-10 - F32.1) Assessment and Plan: Anxiety and Depression Initiate weekly cognitive behavioral therapy sessions to address the patient's anxiety and depression, focusing on coping skills and stress management techniques. Encourage the patient to maintain a support system, including family and episcopal involvement. Insomnia Discuss sleep hygiene techniques and [...] therapy sessions as appropriate, respecting the patient's Lutheran idalmis. Offer a referral to a Lutheran counseling agency if the patient desires a idalmis-based approach to therapy. Family Support Encourage the patient to continue utilizing her strong support system, including her , children, and grandchildren. Provide psychoeducation on anxiety and depression to help the patient's family better understand and support her needs. Follow-up: Schedule a follow-up appointment to monitor the patient's progress and continue working on the identified issues. 06/30/2024 Dietary counseling and surveillance (ICD-10 - [...] emergency services. discussed crisis prevention hotline 988. 06/24/2024 Primary insomnia (ICD-10 - F51.01) 1. [...] and her consideration of moving back to [place] for family proximity. Encourage the patient to discuss these feelings with her family and weigh the moving pros and cons. Offer support and guidance in making these decisions. Social Support Highlight the patient's involvement in episcopal activities and her support network through family [...] Caregiver Stress Assessment: - Expresses concern for Arvi's health, who is recovering from heart issues - While Ravi is showing improvement, reports anxiety about traveling or being away from him, fearing something might happen Plan: - Continue to monitor and address caregiver stress in therapy sessions - Explore coping strategies for managing anxiety related to 's health 06/30/2024 Encounter for screening for depression (ICD-10 - Z13.31) 07/13/2024 Encounter for screening for depression (ICD-10 - Z13.31) 07/30/2024 Negative depression screening (ICD-10 - Z13.31) 07/30/2024 Encounter for screening for depression (ICD-10 - Z13.31) 06/30/2024 Nicotine use (ICD-10 - Z72.0) 07/13/2024 Encounter for screening for cardiovascular disorders (ICD-10 - Z13.6) 06/30/2024 Primary insomnia (ICD-10 - F51.01) on zolpidem by pcp 07/30/2024 Nicotine use (ICD-10 - Z72.0) 07/30/2024 Primary insomnia (ICD-10 - F51.01) on zolpidem by pcp 06/30/2024 YOSI (generalized anxiety disorder) (ICD-10 - F41.1) on clonazepam 1mg tid by pcp 06/30/2024 Major depressive disorder, recurrent, moderate (ICD-10 - F33.1) 07/30/2024 YOSI (generalized anxiety disorder) (ICD-10 - F41.1) on clonazepam by pcp 07/30/2024 Major depressive disorder, recurrent, moderate (ICD-10 - [...] trying magnesium glycinate (200-400 mg) as an jolc-qyd-fthonmu supplement to improve sleep quality. - stop trazodone(patien t reports she does not use) - [...] seek emergency services. discussed crisis prevention hotline 985. Assessment and Plan: 1. Generalized Anxiety Disorder [...] risk for seniors, - antihistamines, benzodiazepines Mayelin Byrd, female patient with history of recurrent depression, [...] efforts have been made to correct them. 07/30/2024 Other Anxiety with recent alprazolam discontinuation Assessment: Patient has been tapering off alprazolam over the past 3-4 weeks, reducing from 3 mg daily to current dose of 0.5 mg daily, with complete discontinuation expected in a couple of days. This tapering may be contributing to increased sleep difficulties due to discontinuation effects. Escitalopram has been increased to address anxiety symptoms. Plan: - Continue tapering alprazolam as planned, with complete discontinuation in the next few days - Maintain current escitalopram dose - Lexapro 5 mg - Monitor for discontinuation symptoms and anxiety levels - Follow up in one month to reassess anxiety management Insomnia Assessment: Patient reports improved sleep with current trazodone regimen. Sleep difficulties may be exacerbated by alprazolam discontinuation. Plan: - Continue trazodone 1 to 2 tablets at bedtime as needed for sleep - Monitor sleep quality, especially in context of alprazolam discontinuation the note is transcribed using speech recognition software. It is a reflection of a visit with the patient. It might have some inaccuracy, including medication names and transcribing errors, though efforts have been made to correct them. 07/24/2024 Other Electronic Prio r Authorization was requested for hydrOXYzine HCl 25 MG Tablet. Provider can order medication once approval received. Plan Of Treatment Next Appt Details Provider Name:Mario Daniel greenwood, 08/27/2024 02:15:00 PM, [address], [place], [address], Insurance Providers Payer Name Payer Address Payer Phone Subscriber Number Group Number Insured Name Patient Relationship to Insured Coverage Start Date Coverage End Date [place] [address] [address] [id number] MAYELIN BYRD Self - patient is the insured 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
--- OUTSIDE RECORDS SUMMARY | 2024-08-10 13:24 | XMS_ITS | Encounter Summary ---
Author Organization [facility] Healthcare Address [address] [place] [address] Care Team Providers Care Edi Programmer Analyst Name Role Phone Carlos Eduardo Chappell MD Primary Care Provide r Leatha Lewis MD Unavailable Heath Whitt MD Unavailable [phone] Adolfo Kilgore MD Unavailable Sukhwinder Hoffman NP Unavailable [phone] Encounter Details Date Type Department Care Team (Late st Contact Info) Description 07/01/2024 Results Follow-Up Family Care at [facility] [address] [address] [place] [phone] [address] XR Shoulder Left 2+ Vw Social History Tobacco Use Types Packs/Day Years [...] often do you attend chur ch or restorationist services? More than 4 times per year 11/21/2023 Do you belong to any clubs o r organizations such as jehovah's witness groups, unions, fraternal or athletic groups, or [...] on file Legal Sex Female 12:59 AM [employer] Gender Identity Not on file Sexual Orientation Not on file documented as of this encounter Plan of Treatment Not on file documented as of this encounter Visit Diagnoses Not on filedocumented in this encounter Care Teams Edi Programmer Analyst Relationship Specialty Start [place] [address] [place] [address] PCP - General Family Medicine 04/15/18 Leatha Lewis MD [address] [facility] [address] IM GASTROENTEROLOGY, [address] [place] [address] Referring Physician Gastroenterology 11/09/21 [place] [address] [place] [address] Consulting Physician Psychiatry 02/27/22 Adolfo Kilgore MD [address] DIV IM BONE MARROW TRANSPLANT, [address] [place] [address] Consulting Physician Medical Oncology 03/07/22 Sukhwinder Hoffman, [employer] [address] [place] [address] Nurse Practitioner Psychiatry 05/07/24 documented as of this encounter
[2024-08-10 13:33] VITALS: BP 150/78; PULSE 63; RESP 18; TEMP 36.4; O2SAT 99
--- OUTSIDE RECORDS SUMMARY | 2024-08-10 15:24 | XMS_ITS | Referral Summary ---
Author Organization [facility] Address [address] [place] [address] Phone Care Team Providers Care Engraver Set Up Operator Name Role Phone Carlos Eduardo Chappell MD Primary Care Provide r Leatha Lewis MD Unavailable [phone] Heath Whitt MD Unavailable [phone] Adolfo Kilgore MD Unavailable Sukhwinder Hoffman NP Unavailable [phone] Encounters Date Type Department Care Team Description 08/04/2024 Nurse Triage Family Care at [address] [address] Carlos Eduardo Chappell MD 07/29/2024 Telephone [facility] Orthopedics and Sports Medicine at [address] [address] Yemi Roman MD 07/23/2024 11:37 AM CDT - 07/23/2024 11:59 PM CDT Hospital Encounter [facility] [address] [place] [address] Ro Nguyen Md Adhesive capsulitis of left shoulder Discharge Disposition: Discharge to home or self care 07/16/2024 Orders Only [facility] Orthopedics and Sports Medicine at [address] [address] Yemi Roman MD Adhesive capsulitis of left shoulder (Primary Dx) 07/16/2024 1:00 PM CDT Office Visit [facility] Orthopedics and Sports Medicine at [address] [place] [address] Yemi Roman MD Primary osteoarthritis of left shoulder (Primary Dx); Synovitis of left shoulder 07/07/2024 Orders Only [facility] Gastroenterology [address] [facility] 12[address] [place] [address] [place] [address] JamieDipti castkki Abdominal pain (Primary Dx); Chronic abdominal pain 07/01/2024 Results Follow-Up Family Care at [address] [address] Katia Gupta NP XR Shoulder Left 2+ Vw 07/01/2024 1:45 PM CDT - 07/01/2024 11:59 PM CDT Hospital Encounter [facility] [address] [place] [address] Acute pain of left shoulder Discharge Disposition: Discharge to home or self care 07/01/2024 1:15 PM CDT Office Visit Family Care at [address] [address] Katia Gupta NP Acute pain of left shoulder (Primary Dx) 06/18/2024 Telephone Family Care at [address] [phone] Carlos Eduardo Chappell MD from Last 3 [...] 03/26/2024 Assessment & Plan (03/26/2024 4:23 PM TOUR CONDUCTOR): BP Readings from Last 3 Encounters: 03/26/24 125/74 02/25/24 142/75 12/16/23 127/70 Controlled/stable, continue current management Continue hydrochlorothiazide Adjustment disorder with mixed anxiety and depre ssed mood 03/26/2024 Assessment & Plan (03/26/2024 4:21 PM TOUR CONDUCTOR): Overall, despite the patient's significant anxiety and stress at this time, we agreed that no change in medication is needed specifically as it relates to her daytime anxiety and depression She will continue the clonazepam p.r.n. She will continue to rely on her synagogue and idalmis for support I did also provide her with the name of 1 of our [facility] psychiatrists, as the current Psychiatry referral she has is strictly related to her GI issues Insomnia due to psychological stress 03/26/2024 Assessment & Plan (03/26/2024 4:22 PM TOUR CONDUCTOR): Since the primary disturbance in the patient's [...] 12/25 Assessment & Plan (03/26/2024 4:16 PM TOUR CONDUCTOR): Controlled/stable, continue current management Await upcoming evaluation [...] (08/12/2020): Added automatically from request for surgery [id number] Abdominal pain 07/11/2020 Common bile duct dilation 07/11/2020 Assessment & Plan (03/26/2024 4:17 PM TOUR CONDUCTOR): Thus far this has been a benign issue for the patient other than the acute gallbladder issues She will continue to follow up closely with GI for ongoing evaluation and treatment recommendations Hyperlipidemia 07/11/2020 Assessment & Plan (03/26/2024 4:16 PM TOUR CONDUCTOR): Continue statin therapy Gastroesophageal reflux dise ase with esophagitis without hemorrhage 07/07/2020 Overview (07/07/2020): Added automatically from request for surgery [id number] Assessment & Plan (03/26/2024 4:16 PM TOUR CONDUCTOR): Controlled/stable, continue current management Continue PPI therapy Follow up with GI CKD (chronic kidney disease) stage 2, GFR 60-89 ml/min 02/18/2020 Assessment & Plan (03/26/2024 4:17 PM TOUR CONDUCTOR): Stable, monitor Hypertension 04/15/2018 Resolved Problems Problem [...] (07/11/2020): Added automatically from request for surgery [id number] Encounter for screening colonoscopy 07/07/2020 09/15/2020 Overview (07/07/2020): Added automatically from request for surgery [id number] Elevated liver enzymes 09/05/201909/15 Overview (09/05/2019): Found [...] often do you attend chur ch or caodaism services? More than 4 times per year 11/21/2023 Do you belong to any clubs o r organizations such as synagogue groups, unions, fraternal or athletic groups, or [...] on file Legal Sex Female 12:59 AM TOUR CONDUCTOR Gender Identity Not on file Sexual Orientation Not on file Last Filed Vital Signs Vital Sign Reading Time Taken Comments Blood Pressure 124/78 07/01/2024 1:08 PM CDT Pulse 54 07/01/2024 1:08 PM CDT Temperature 36.8 C (98.2 F) 02/25/2024 12:31 PM TOUR CONDUCTOR Respiratory Rate 18 12/16/2023 3:49 PM CDT Oxygen Saturation 96% 07/01/2024 1:08 PM CDT Inhaled Oxygen Concentration - - Weight 71.7 kg (158 lb) 07/16/2024 1:33 PM CDT Height 165.1 cm (5' 5) 07/16/2024 1:33 PM CDT Body Mass Index 26.29 07/16/2024 1:33 PM CDT Plan of Treatment Not on file Medical Devices Implanted Type Area Auto Apprentice Mechanic Device Identifier Shelf Expiration Date Model / Serial / Lot [employer] Abi [id number] Wallflex Permalume 10mm 8.5fr 60mm 194cm Fully Cover Catheter - [id number] Implanted:Qty: 1 on 07/11/2020 by Carlo Cancino MD at [facility] [employer] [place] [employer] 05/30/2022 [id number] / / [id number] Procedures Procedure Name Priority Date/Time Associated Diagnosis [...] Read Routine (OP Routine) 03/21/2023 12:56 PM TOUR CONDUCTOR Encounter for screening mammogram for malignant neoplasm of breast DEXA AXIAL SKELETON BONE DENSITY 1 OR MORE SITES Schedule Routine, Read Routine (OP Routine) 03/06/2022 1:16 PM TOUR CONDUCTOR Asymptomatic menopausal state COLONOSCOPY 09/14/2020 9:31 AM [...] IMPRESSION: Degeneration glenohumeral joint Electronically signed by: Weslye Moody M.D. Katia Gupta TOBACCO EDUCATOR IMG XR PROCEDURES Final Res ult * [...] AL ORDERABLES Edited Result - Final NOREEN [id number] [address] Department [place] [address] * SCREENING MAMMOGRAM BILATERAL W DMITRY (03/21/2023 12:56 PM TOUR CONDUCTOR) Anatomical Region Laterality Modality Breast Bilateral Mammography 03/21/2023 1:26 PM TOUR CONDUCTOR Impressions 03/21/2023 1:26 PM TOUR CONDUCTOR No evidence of malignancy in either breast. FINAL ASSESSMENT: BI-RADS Category 1: Negative. RECOMMENDATION: Recommend return for annual screening mammogram in 12 months. Electronically signed by: MD Christine GLOVER 03/21/2023 1:26 PM TOUR CONDUCTOR EXAMINATION: BILATERAL SCREENING MAMMOGRAM COMPARISON: Multiple prior [...] 1 or 2 Site (03/06/2022 1:16 PM TOUR CONDUCTOR) Anatomical Region Laterality Modality Body N/A Digital Radiogra phy 03/06/2022 1:37 PM TOUR CONDUCTOR Impressions 03/06/2022 2:14 PM TOUR CONDUCTOR 1. The bone mineral density of the [...] Talat Goldman M.D. Narrative 03/06/2022 2:14 PM TOUR CONDUCTOR BONE DENSITOMETRY OF THE SPINE AND HIP [...] Cancino MD - 09/14/2020 9:31 AM CDT [facility] Patient Name: Mayelin Mcdaniel Procedure [...] Barajas(Anesthesia Staff), Gianni Lucero RN, Mer Herrera, Hog Ringer Referring MD: Carlos Eduardo Chappell M.D. Medicines: [...] bowel preparation was evaluated using the BBPS ([place] Bowel Preparation Scale)with scores of: Right Colon [...] for surveillance. Procedure Code(s): --- Professional --- 48309, Colonoscopy, flexible; with removal of tumor(s), polyp(s), or other lesion(s) by snare technique 85078, 59, Colonoscopy, flexible; with biopsy,single or multiple CPT copyright 2019 [employer]. All rights reserved. The codes documented in this report are preliminary and upon welder boilermaker reviewmay be revised to meet current compliance requirements. Electronically signed by Carlo Cancino MD Carlo Cancino M.D. 09/14/2020 10:10:51 AM Number of Addenda: 0 Note Initiated On: 09/14/2020 9:31 AM Carlo Cancino MD ENDOSCOPY PROCEDURES Final Re sult from Last 3 Months or Most Recently Relevant to Health Maintenance Insurance MEDICARE [employer] [facility] MEDICARE [employer] [facility] [facility] [employer] [facility] MEDIC[facility] Advance Directives For more information, please contact: [phone] * Full Code (Latest Code Status on File) Date Activated Date Inactivated Comments 12/11/2023 9:06 AM 12/11/2023 3:32 PM * Full Code Date Activated Date Inactivated Comments 11/20/2023 7:08 AM 11/21/2023 10:35 PM * Full Code Date Activated Date Inactivated Comments 07/11/2020 6:20 AM 07/15/2020 5:07 PM Care Teams Engraver Set Up Operator Relationship Specialty Start [place] [address] [facility] [address] [place] [address] PCP - General Family Medicine 04/15/18 Leatha Lewis MD [address] [facility] DIV IM GASTROENTEROLOGY, [address] [place] [address] Referring Physician Gastroenterology 11/09/21 [place] [address] [facility] [address] [place] [address] Consulting Physician Psychiatry 02/27/22 Adolfo Kilgore, MD [address] DIV IM BONE MARROW TRANSPLANT, [address] [place] [address] Consulting Physician Medical Oncology 03/07/22 Sukhwinder Hoffman NP [address] [address] Nurse Practitioner Psychiatry 05/07/24
--- OUTSIDE RECORDS SUMMARY | 2024-08-10 15:24 | XMS_ITS | Encounter Summary ---
Author Organization [facility] Healthcare Address [address] [place] [address] Care Team Providers Care Grants Analyst Name Role Phone Carlos Eduardo Chappell MD Primary Care Provide r Leatha Lewis MD Unavailable [phone] Heath Whitt MD Unavailable Adolfo Kilgore MD Unavailable Sukhwinder Hoffman NP Unavailable [phone] Reason for Visit * Reason Onset Date Comments leg pain 08/04/2024 Encounter Details Date Type Department Care Team (Late st Contact Info) Description 08/04/2024 Nurse Triage Family Care at [facility] [address] [address] Carlos Eduardo Chappell MD [address] [place] [address] [address] [place] [address] Social History Tobacco Use Types [...] often do you attend chur ch or baptism services? More than 4 times per year 11/21/2023 Do you belong to any clubs o r organizations such as religion groups, unions, fraternal or athletic groups, or [...] place to sleep or slept in a longterm (including now)? No 07/18/2020 Personal Safety Answer Date Recorded Have you ever been in or are you currently in a harmful physical or emotional relationship or is someone making you feel afraid or unsafe? Denies 12/11/2023 Comments No Sex and Gender Information Value Date Recorded Sex Assigned at Not on file Legal Sex Female 12:59 AM GENERAL MANAGER Gender Identity Not on file Sexual [...] for ED disposition consult. Recommendation from provider:Send [facility]/ Pt advised to be seen in [...] present > 1 hour Protocols Used Leg Akor-Yffio-WW * Telephone Encounter - Tracy Butterfield RN [...] was seen at an urgent care [place] for a positive for a uti, she was given cephalexin for 7 days ago. She is starting to feel like its helping. Recently she has gotten 4 urinary tract infections Does message need to be routed? Yes-Action Needed documented in this encounter Plan of Treatment Not on file documented as of this encounter Visit Diagnoses Not on filedocumented in this encounter Care Teams Grants Analyst Relationship Specialty Start [place] [address] [address] [facility] [address] [place] [address] PCP - General Family Medicine 04/15/18 Leatha Lewis MD [address] [facility] DIV IM GASTROENTEROLOGY, [facility] [address] [place] [address] Referring Physician Gastroenterology 11/09/21 [place] [address] [address] [facility] [address] [place] [address] Consulting Physician Psychiatry 02/27/22 Adolfo Kilgore MD [address] DIV IM BONE MARROW TRANSPLANT, [address] [place] [address] Consulting Physician Medical Oncology 03/07/22 Sukhwinder Hoffman NP [address] [id number] Nurse Practitioner Psychiatry 05/07/24 documented as of this encounter
--- OUTSIDE RECORDS SUMMARY | 2024-08-10 15:24 | XMS_ITS | Encounter Summary ---
Author Organization [facility] Healthcare Address [address] [place] [address] Care Team Providers Care Fountain Pen Nibs Inspector Name Role Phone Carlos Eduardo Chappell MD Primary Care Provide r Leatha Lewis MD Unavailable Heath Whitt MD Unavailable Adolfo Kilgore MD Unavailable Sukhwinder Hoffman NP Unavailable [phone] Encounter Details Date Type Department Care Team (Late st Contact Info) Description 01/12/2024 E-Visit Family Care at [facility] [address] [address] Carlos Eduardo Chappell MD [address] [place] [address] Clonazepam Social History Tobacco Use Types [...] often do you attend chur ch or hinduism services? More than 4 times per year 11/21/2023 Do you belong to any clubs o r organizations such as yazidi groups, unions, fraternal or athletic groups, or [...] place to sleep or slept in a snf (including now)? No 07/18/2020 Personal Safety Answer Date Recorded Have you ever been in or are you currently in a harmful physical or emotional relationship or is someone making you feel afraid or unsafe? Denies 12/11/2023 Comments No Sex and Gender Information Value Date Recorded Sex Assigned at Not on file Legal Sex Female 12:59 AM DISASTER RECOVERY MANAGER Gender Identity Not on file Sexual Orientation Not on file documented as of this encounter Plan of Treatment Not on file documented as of this encounter Visit Diagnoses Not on filedocumented in this encounter Care Teams Fountain Pen Nibs Inspector Relationship Specialty Start Date [place] [address] [address] [place] [address] PCP - General Family Medicine 04/15/18 Leatha Lewis MD [address] [facility] [address] DIV IM GASTROENTEROLOGY, [facility] [address] [place] [address] Referring Physician Gastroenterology 11/09/21 [place] [address] [address] [facility] [address] [place] [address] Consulting Physician Psychiatry 02/27/22 Adolfo Kilgore MD [address] DIV IM BONE MARROW TRANSPLANT, [address] [place] [address] Consulting Physician Medical Oncology 03/07/22 Sukhwinder Hoffman, SPOTLIGHT OPERATOR [address] [place] [address] Nurse Practitioner Psychiatry 05/07/24 documented as of this encounter
--- OUTSIDE RECORDS SUMMARY | 2024-08-10 15:24 | XMS_ITS | Clinical Summary ---
Author Organization [facility] Address [address] [place] [address] Phone Care Team Providers Care Roof Painter Name Role Phone Carlos Eduardo Chappell MD Primary Care Provide r Leatha Lewis MD Unavailable Heath Whitt MD Unavailable [phone] Adolfo Kilgore MD Unavailable Sukhwinder Hoffman NP Unavailable [phone] Allergies Active Allergy Reactions Criticality Noted [...] 03/26/2024 Assessment & Plan (03/26/2024 4:23 PM VENDING MACHINE ATTENDANT): BP Readings from Last 3 Encounters: 03/26/24 125/74 02/25/24 142/75 12/16/23 127/70 Controlled/stable, continue current management Continue hydrochlorothiazide Adjustment disorder with mixed anxiety and depre ssed mood 03/26/2024 Assessment & Plan (03/26/2024 4:21 PM VENDING MACHINE ATTENDANT): Overall, despite the patient's significant anxiety and stress at this time, we agreed that no change in medication is needed specifically as it relates to her daytime anxiety and depression She will continue the clonazepam p.r.n. She will continue to rely on her hindu and idalmis for support I did also provide her with the name of 1 of our [facility] Medical group psychiatrists, as the current Psychiatry referral she has is strictly related to her GI issues Insomnia due to psychological stress 03/26/2024 Assessment & Plan (03/26/2024 4:22 PM VENDING MACHINE ATTENDANT): Since the primary disturbance in the patient's [...] 12/25 Assessment & Plan (03/26/2024 4:16 PM VENDING MACHINE ATTENDANT): Controlled/stable, continue current management Await upcoming evaluation by mental health professional/psychiatry Continue current medical treatment including Linzess Abdominal pain, chronic, epigastric 06/05/2021 Assessment & Plan (06/19/2021 8:33 AM CDT): Dr. Cancino Gastroenterology-referring to [facility] appointment October [address]- Postoperative changes of cholecystectomy with increased pneumobilia and common bile duct dilatation without an associated obstructing mass likely secondary to reservoir effect and ampullary procedure. Recommend correlation with liver function tests and continued attention on follow-up imaging. Common bile duct stone 08/12/2020 Overview (08/12/2020): Added automatically from request for surgery [id number] Abdominal pain 07/11/2020 Common bile duct dilation 07/11/2020 Assessment & Plan (03/26/2024 4:17 PM VENDING MACHINE ATTENDANT): Thus far this has been a benign issue for the patient other than the acute gallbladder issues She will continue to follow up closely with GI for ongoing evaluation and treatment recommendations Hyperlipidemia 07/11/2020 Assessment & Plan (03/26/2024 4:16 PM VENDING MACHINE ATTENDANT): Continue statin therapy Gastroesophageal reflux dise ase with esophagitis without hemorrhage 07/07/2020 Overview (07/07/2020): Added automatically from request for surgery [id number] Assessment & Plan (03/26/2024 4:16 PM VENDING MACHINE ATTENDANT): Controlled/stable, continue current management Continue PPI therapy Follow up with GI CKD (chronic kidney disease) stage 2, GFR 60-89 ml/min 02/18/2020 Assessment & Plan (03/26/2024 4:17 PM VENDING MACHINE ATTENDANT): Stable, monitor Hypertension 04/15/2018 Resolved Problems Problem [...] (07/11/2020): Added automatically from request for surgery [id number] Encounter for screening colonoscopy 07/07/2020 09/15/2020 Overview (07/07/2020): Added automatically from request for surgery [id number] Elevated liver enzymes 09/05/201909/15 Overview (09/05/2019): Found [...] Description 08/04/2024 Nurse Triage Family Care at [address] [phone] Carlos Eduardo Chappell MD 07/29/2024 Telephone [facility] Orthopedics and Sports Medicine at [address] [phone] Yemi Roman MD 07/23/2024 11:37 AM CDT - 07/23/2024 11:59 PM CDT Hospital Encounter [facility] [id number] [place] [phone] Ro Nguyen Md Adhesive capsulitis of left shoulder Discharge Disposition: Discharge to home or self care 07/16/2024 1:00 PM CDT Office Visit [facility] Orthoped[facility] Sports Medicine at [address] [phone] Yemi Roman MD Primary osteoarthritis of left shoulder (Primary Dx); Synovitis of left shoulder 07/16/2024 Orders Only [facility] Orthopedics [facility] Sports Medicine at [address] [phone] Yemi Roman MD Adhesive capsulitis of left shoulder (Primary Dx) 07/07/2024 Orders Only [facility] Gastroenterology [address] [place] [address] 12th [place] [address] [place] [address] Lynne Slaughter Abdominal pain (Primary Dx); Chronic abdominal pain 07/01/2024 1:45 PM CDT - 07/01/2024 11:59 PM CDT Hospital Encounter [facility] [address] [place] [address] Acute pain of left shoulder Discharge Disposition: Discharge to home or self care 07/01/2024 1:15 PM CDT Office Visit Family Care at [address] [place] [phone] Katia Gupta NP Acute pain of left shoulder (Primary Dx) 07/01/2024 Results Follow-Up Family [facility] at [address] [phone] Katia Gupta NP XR Shoulder Left 2+ Vw 06/18/2024 Telephone Family Care at [address] [phone] Carlos Eduardo Chappell MD from [...] 07/07/2020 Added automatically from request for surgery [id number] Elevated liver enzymes 09/05/2019 Found dur ing ED visit 08/30/2019 - CT scan negative, needs repeat labs for monitoring Acute kidney injury superimp osed on chronic kidney disease 07/11/2020 Septic shock (HCC) 07/11/2020 Cholangitis (HCC) 07/10/2020 Added automati krishan from request for surgery [id number] Abnormal CT scan of lung 05/30/2021 Nonspec [...] How often do you attend [facility] or congregation services? More than 4 times per year 11/21/2023 Do you belong to any clubs o r organizations such as hindu groups, unions, fraternal or athletic groups, or [...] place to sleep or slept in a retirement (including now)? No 07/18/2020 Personal Safety Answer Date Recorded Have you ever been in or are you currently in a harmful physical or emotional relationship or is someone making you feel afraid or unsafe? Denies 12/11/2023 Comments No Sex and Gender Information Value Date Recorded Sex Assigned at Not on file Legal Sex Female 12:59 AM VENDING MACHINE ATTENDANT Gender Identity Not on file Sexual Orientation [...] 36.8 C (98.2 F) 02/25/2024 12:31 PM VENDING MACHINE ATTENDANT Respiratory Rate 18 12/16/2023 3:49 PM CDT [...] history exists Medical Devices Implanted Type Area Tree Climber Device Identifier Shelf Expiration Date Model / Serial / Lot Fyreball Abi [id number] Wallflex Permalume 10mm 8.5fr 60mm 194cm Fully Cover Catheter - [id number] Implanted:Qty: 1 on 07/11/2020 by Carlo Cancino MD at [facility] Stent [employer] Abi 05/30/2022 [id number] / / [id number] Procedures Procedure Name Priority Date/Time Associated Diagnosis [...] Read Routine (OP Routine) 03/21/2023 12:56 PM VENDING MACHINE ATTENDANT Encounter for screening mammogram for malignant neoplasm of breast DEXA AXIAL SKELETON BONE DENSITY 1 OR MORE SITES Schedule Routine, Read Routine (OP Routine) 03/06/2022 1:16 PM VENDING MACHINE ATTENDANT Asymptomatic menopausal state COLONOSCOPY 09/14/2020 9:31 AM [...] signed by: Wesley Moody M.D. Katia Gupta CUSTOMER PROFESSIONAL IMG XR PROCEDURES Final Res ult * [...] CDT Leatha Lewis MD LAB MICROBIOLOGY - [facility] AL ORDERABLES Edited Result - Final [facility] [address] [place] [address] * SCREENING MAMMOGRAM BILATERAL W DMITRY (03/21/2023 12:56 PM VENDING MACHINE ATTENDANT) Anatomical Region Laterality Modality Breast Bilateral Mammography 03/21/2023 1:26 PM VENDING MACHINE ATTENDANT Impressions 03/21/2023 1:26 PM VENDING MACHINE ATTENDANT No evidence of malignancy in either breast. FINAL ASSESSMENT: BI-RADS Category 1: Negative. RECOMMENDATION: Recommend return for annual screening mammogram in 12 months. Electronically signed by: ALFREDA PRIEST MD Narrative 03/21/2023 1:26 PM VENDING MACHINE ATTENDANT EXAMINATION: BILATERAL SCREENING MAMMOGRAM COMPARISON: Multiple prior [...] 1 or 2 Site (03/06/2022 1:16 PM VENDING MACHINE ATTENDANT) Anatomical Region Laterality Modality Body N/A Digital Radiogra phy 03/06/2022 1:37 PM VENDING MACHINE ATTENDANT Impressions 03/06/2022 2:14 PM VENDING MACHINE ATTENDANT 1. The bone mineral density of the [...] Talat Goldman M.D. Narrative 03/06/2022 2:14 PM VENDING MACHINE ATTENDANT BONE DENSITOMETRY OF THE SPINE AND HIP [...] Cancino MD - 09/14/2020 9:31 AM CDT [facility] Patient Name: Mayelin Mcdaniel Procedure [...] Barajas(Anesthesia Staff), Gianni Lucero RN, Mer Herrera, District Fire Chief Referring MD: Carlos Eduardo Chappell M.D. Medicines: [...] bowel preparation was evaluated using the BBPS (Brandt Bowel Preparation Scale)with scores of: Right Colon [...] for surveillance. Procedure Code(s): --- Professional --- 37897, Colonoscopy, flexible; with removal of tumor(s), polyp(s), or other lesion(s) by snare technique 53491, 59, Colonoscopy, flexible; with biopsy,single or multiple CPT copyright 2019 [employer]. All rights reserved. The codes documented in this report are preliminary and upon gypsum calciner reviewmay be revised to meet current compliance requirements. Electronically signed by Calro Cancino MD Carlo Cancino M.D. 09/14/2020 10:10:51 AM Number of Addenda: 0 Note Initiated On: 09/14/2020 9:31 AM Carlo Cancino MD ENDOSCOPY PROCEDURES Final Re sult from Last 3 Months or Most Recently Relevant to Health Maintenance Insurance [place] [address] MEDICARE [facility] MEDICARE [employer] [facility] MED[facility]ARE [facility] Address: [address] [address] [place] [address] Advance Directives For more information, please contact: [phone] * Full Code (Latest Code Status on File) Date Activated Date Inactivated Comments 12/11/2023 9:06 AM 12/11/2023 3:32 PM * Full Code Date Activated Date Inactivated Comments 11/20/2023 7:08 AM 11/21/2023 10:35 PM * Full Code Date Activated Date Inactivated Comments 07/11/2020 6:20 AM 07/15/2020 5:07 PM Care Teams Roof Painter Relationship Specialty Start [place] [address] [address] [facility] [address] [place] [address] PCP - General Family Medicine 04/15/18 Leatha Lewis MD [address] DIV IM GASTROENTEROLOGY, [facility] [address] [place] [address] Referring Physician Gastroenterology 11/09/21 [place] [address] [address] [facility] [address] [place] [address] Consulting Physician Psychiatry 02/27/22 Adolfo Kilgore MD [address] DIV IM BONE MARROW TRANSPLANT, [address] [place] [address] Consulting Physician Medical Oncology 03/07/22 Sukhwinder Hoffman, CUSTOMER PROFESSIONAL [address] [place], [place] [id number] Nurse Practitioner Psychiatry 05/07/24
--- OUTSIDE RECORDS SUMMARY | 2024-08-10 15:24 | XMS_ITS | Encounter Summary ---
Author Organization [facility] Healthcare Address [address] [place] [address] Care Team Providers Care Skin Therapist Name Role Phone Carlos Eduardo Chappell MD Primary Care Provide r Leatha Lewis MD Unavailable [phone] Heath Whitt MD Unavailable [phone] Adolfo Kilgore MD Unavailable Sukhwinder Hoffman NP Unavailable [phone] Encounter Details Date Type Department Care Team (Late st Contact Info) Description 07/01/2024 Results Follow-Up Family Care at [facility] [address] [phone] [place] [id number] [address] XR Shoulder Left 2+ Vw [...] often do you attend chur ch or anglican services? More than 4 times per year [...] on file Legal Sex Female 12:59 AM RECREATIONAL DIRECTOR Gender Identity Not on file Sexual Orientation Not on file documented as of this encounter Plan of Treatment Not on file documented as of this encounter Visit Diagnoses Not on filedocumented in this encounter Care Teams Skin Therapist Relationship Specialty Start [place] [address] [address] [address] [place] [address] PCP - General Family Medicine 04/15/18 Leatha Lewis MD [address] DIV IM GASTROENTEROLOGY, [facility] [address] [place] [address] Referring Physician Gastroenterology 11/09/21 [place] [address] [address] [place] [address] Consulting Physician Psychiatry 02/27/22 Adolfo Kilgore MD [address] DIV IM BONE MARROW TRANSPLANT, [address] [place] [address] Consulting Physician Medical Oncology 03/07/22 Sukhwinder Hoffman, ALUM PLANT OPERATOR [address] [place] [address] Nurse Practitioner Psychiatry 05/07/24 documented as of this encounter
[2024-08-10] MEDS: KETOROLAC 30 MG/ML VIAL (*BKC) IV PUSH (15:47)
[2024-08-10 15:59] LABS: Basophils Percent Auto 0.3 % (0.2-1.2); Eosinophils Absolute Auto 0.1 K/mm3 (0-0.3); Eosinophils Percent Auto 0.6 % (0-4.4); Hematocrit 40.6 % (37.0-47.0); Hemoglobin 13.1 g/dL (12.0-15.0); Immature Granulocyte Absolute 0.07 K/mm3 (0.00-0.031); Immature Granulocyte Percent A 0.6 % (0-0.5); Lymphocytes Absolute Auto 4.02 K/mm3 (0.9-3.2); Lymphocytes Percent Auto 33.7 % (18.3-44.2); Mean Corpuscular HGB Conc 32.3 g/dl (32-36); Mean Corpuscular Hemoglobin 29.6 pg (26-34); Mean Corpuscular Volume 91.6 fl (80-100); Mean Platelet Volume 9.9 fl (7.4-10.4); Monocytes Absolute Auto 1.1 K/mm3 (0.1-0.6); Monocytes Percent Auto 8.8 % (2.6-8.5); Neutrophils Absolute Auto 6.7 K/mm3 (1.3-6.7); Platelet Count Result 259 k/mm3 (150-375); Red Blood Count 4.43 M/mm3 (4.2-5.4); Red Cell Distribution Width 13.5 % (11.5-14.5); White Blood Count 11.9 K/mm3 (4.5-10.0)
[2024-08-10 16:20] LABS: Add Urine Microscopic? YES; Appearance Urine Clear (Clear); Bacteria Urine None Seen /hpf; Bilirubin Urine Negative (Negative); Blood Urine Negative (Negative); Color Urine Yellow (Yellow); Glucose Urine UA Negative (Negative); Ketones Urine Negative (Negative); Leukocyte Esterase Ur 1+ LEU/UL (Negative); Need Manual Microscopic Reviewed; Nitrate Urine Negative (Negative); Non Pathogenic Casts 0-2; Protein Urine Negative (Negative); RBC Urine 0-2 /hpf (0-2); Specific Grav Ur 1.015 (1.001-1.035); Squamous Epithelial Cell Urine None Seen /hpf (Few); Urobilinogen Urine 0.2 mg/dL (<2.0); WBC Urine 0-5 /hpf (0-3); pH Urine 5.5 (5.0-9.0)
[2024-08-10 16:27] LABS: Alanine Aminotransferase 37 U/L (6-35); Albumin Level 4.4 g/dL (3.5-5.1); Alkaline Phosphatase 77 U/L (38-126); Anion Gap 8 mmol/L (4-12); Aspartate Amino Transferase 38 U/L (14-36); Bilirubin,Total 0.6 mg/dL (0.2-1.3); Blood Urea Nitrogen 35 mg/dL (7-17); Calcium 9.9 mg/dL (8.4-10.2); Carbon Dioxide 27 mmol/L (22-30); Chloride 102 mmol/L (98-107); Estimated CRCL calculation 36 ml/min; Estimated Glomerular Filt Rate 48; Glucose 87 mg/dL (65-110); Lipase 249 U/L (23-300); Potassium 3.6 mmol/L (3.4-5.0); Sodium 137 mmol/L (137-145)
[2024-08-10 16:46] VITALS: BP 122/63; PULSE 50; RESP 19; O2SAT 97
--- NOTE | 2024-08-10 18:13 | ED_ITS ---
HPI - Abdominal Pain General Chief Complaint: Abdominal Pain Stated Complaint: Abd pain, light headed, flushed feeling Time Seen by Provider: 08/10/24 14:40 History of Present Illness HPI narrative: Patient is a 73-year-old female presents ER with multitude of complaints. She recently started some methylprednisolone feels like his caused worsening of some chronic issues for her. She has chronic epigastric pain related to a hiatal hernia that has increased. She also reports increased tingling in her extremities as well as throbbing frontal headache. No trauma. No loss of function her extremities. No history of bleed or stroke. Patient does have a lot of anxiety and sees a psychiatrist about her abdominal pain. Symptoms chronic for years but worsening over last 2 weeks. Cannot describe aggravating factors. No improvement with Tylenol or ibuprofen. Related Data Home Medications ?Medication ?Instructions ?Recorded ?Confirmed ?Last Taken ?Type clonazepam 1 mg tablet 1 mg PO TID 06/24/24 06/24/24 Unknown History escitalopram oxalate 5 mg tablet 2.5 mg PO DAILY 06/24/24 06/24/24 Unknown History hydrochlorothiazide 25 mg tablet 25 mg PO DAILY 06/24/24 06/24/24 Unknown History linaclotide 145 mcg capsule 145 mcg PO DAILY 06/24/24 06/24/24 Unknown History (Linzess) ondansetron 4 mg disintegrating 4 mg PO TID PRN 06/24/24 06/24/24 Unknown History tablet pravastatin 40 mg tablet 40 mg PO DAILY 06/24/24 06/24/24 Unknown History propranolol 10 mg tablet 10 mg PO DAILY 06/24/24 06/24/24 Unknown History zolpidem 10 mg tablet 10 mg PO QHS 06/24/24 06/24/24 Unknown History Allergies Allergy/AdvReac Type Severity Reaction Status Date / Time ciprofloxacin Allergy Nausea Verified 08/10/24 14:59 metronidazole Allergy Nausea Verified 08/10/24 14:59 Review of Systems 2 Review of Systems: All systems reviewed & are unremarkable except as noted in HPI and below Constitutional: Constitutional: Reports no additional constitutional complaints ENT: Reports system reviewed and no additional complaints, except as documented Cardiovascular: Cardiovascular: Reports no additional cardiovascular complaints Respiratory: Respiratory: Reports no additional respiratory complaints Gastrointestinal: Gastrointestinal: Reports no additional gastrointestinal complaints [facility] Past Medical History Medical History (Updated 08/10/24 @ 18:14 by Maikol Laurent MD) Hypercholesteremia HTN (hypertension) GERD (gastroesophageal reflux disease) Depression Anxiety Family History Family History Mother Patient's mother is , Onset Age: 89 Father Patient's father is , Onset Age: 91 Sibling Family history of malignant neoplasm Social History Social History Smoking status: Never smoker Exam 2 Narrative: GENERAL: Well-appearing, well-nourished, and in no acute distress. HEAD: Normocephalic, atraumatic. ENT: Mucous membranes moist. CHEST: Clear to auscultation. No respiratory distress. HEART: Regular rate and rhythm. Normal peripheral pulses. ABDOMEN: Soft, nontender, nondistended. EXTREMITIES: Normal range of motion. No edema. SKIN: Warm, dry, no rash. NEURO: Alert and oriented x3. PSYCH: Normal mood and affect. Course Course Emergency Course: Patient resting comfortably. Informed of results. Appropriate for discharge home. Toradol for headache. Vital Signs Vital signs: Vital Signs Temperature 97.6 F 08/10/24 13:33 Pulse Rate 63 08/10/24 13:33 Respiratory Rate 18 08/10/24 13:33 Blood Pressure 150/78 H 08/10/24 13:33 Pulse Oximetry 99 08/10/24 13:33 Oxygen Delivery Room Air 08/10/24 13:33 Temperature 97.6 F 08/10/24 13:33 Pulse Rate 50 L 08/10/24 16:46 Respiratory Rate 19 08/10/24 16:46 Blood Pressure 122/63 08/10/24 16:46 Pulse Oximetry 97 08/10/24 16:46 Oxygen Delivery Room Air 08/10/24 13:33 MDM - Abdominal Pain Lab Data 08/10/24 15:41 08/10/24 15:41 Labs: Lab Results 08/10/24 Range/Units 15:41 WBC 11.9 H (4.5-10.0) K/mm3 RBC 4.43 (4.2-5.4) M/mm3 Hgb 13.1 (12.0-15.0) g/dL Hct 40.6 (37.0-47.0) % MCV 91.6 (80-100) fl MCH 29.6 (26-34) pg MCHC 32.3 (32-36) g/dl RDW 13.5 (11.5-14.5) % Plt Count 259 (150-375) k/mm3 MPV 9.9 (7.4-10.4) fl Immature Gran % (Auto) 0.6 H (0-0.5) % Neut % (Auto) 56.0 (45.5-73.1) % Lymph % (Auto) 33.7 (18.3-44.2) % [place] % (Auto) 8.8 H (2.6-8.5) % Eos % (Auto) 0.6 (0-4.4) % Baso % (Auto) 0.3 (0.2-1.2) % Lymph # (Auto) 4.02 H (0.9-3.2) K/mm3 [place] # (Auto) 1.1 H (0.1-0.6) K/mm3 Eos # (Auto) 0.1 (0-0.3) K/mm3 Baso # (Auto) 0.0 (0.0-0.1) K/mm3 Abs Immat Gran (auto) 0.07 H (0.00-0.031) K/mm3 Absolute Neuts (auto) 6.7 (1.3-6.7) K/mm3 Absolute Nucleated RBC 0.000 (0.0-0.012) K/mm3 Nucleated RBC % 0.0 (0.0-0.2) % Sodium 137 (137-145) mmol/L Potassium 3.6 (3.4-5.0) mmol/L Chloride 102 (98-107) mmol/L Carbon Dioxide 27 (22-30) mmol/L Anion Gap 8 (4-12) mmol/L BUN 35 H (7-17) mg/dL Creatinine 1.11 H (0.7-1.0) mg/dL Estim Creat Clear Calc 36 ml/min Estimated GFR 48 L (59 - ) Glucose 87 (65-110) mg/dL Calcium 9.9 (8.4-10.2) mg/dL Total Bilirubin 0.6 (0.2-1.3) mg/dL AST 38 H (14-36) U/L ALT 37 H (6-35) U/L Alkaline Phosphatase 77 (38-126) U/L Total Protein 8.0 (6.3-8.2) g/dL Albumin 4.4 (3.5-5.1) g/dL Lipase 249 (23-300) U/L Urine Color Yellow (Yellow) Urine Appearance Clear (Clear) Urine pH 5.5 (5.0-9.0) Ur Specific [place] 1.015 (1.001-1.035) Urine Protein Negative (Negative) mg/dL Urine Glucose (UA) Negative (Negative) mg/dL Urine Ketones Negative (Negative) mg/dL Ur Blood (Man) Negative (Negative) Urine Nitrate Negative (Negative) Urine Bilirubin Negative (Negative) Urine Urobilinogen 0.2 (<2.0) mg/dL Add Ur Microanalysis Reviewed Leukocyte Esterase Rfl 1+ H (Negative) PHILL/UL Urine RBC 0-2 (0-2) /hpf Urine WBC 0-5 (0-3) /hpf Ur Squamous Epith Cells None seen (Few) /hpf Urine Bacteria None seen /hpf Urine Casts 0-2 Imaging Data Radiologist's impression: ITS Impressions Head CT 08/10/24 16:18 IMPRESSION: No acute intracranial process. Discharge Plan Discharge Clinical Impression: Headache, Paresthesia, Chronic epigastric pain Patient Disposition: Home Condition: Stable Instructions: Abdominal Pain (ED), General Headache (ED) Additional Instructions: Try to stay well hydrated at home. Please return to the emergency department if you develop worsening of your headache or a new headache which is severe, associated with vision changes, associated with neck stiffness or fever, or if it is different from any other headache that you have had before. Return to the emergency department if you develop numbness, weakness or tingling or problems with coordination, or if you develop severe nausea and vomiting and are unable to keep down fluids at home. Patient Language: Sri [place]an Prescriptions: No Action zolpidem 10 mg tablet 10 mg PO QHS escitalopram oxalate 5 mg tablet 2.5 mg PO DAILY propranolol 10 mg tablet 10 mg PO DAILY ondansetron 4 mg tablet,disintegrating 4 mg PO TID PRN pravastatin 40 mg tablet 40 mg PO DAILY hydrochlorothiazide 25 mg tablet 25 mg PO DAILY Linzess 145 mcg capsule 145 mcg PO DAILY clonazepam 1 mg tablet 1 mg PO TID cephalexin 500 mg capsule 500 mg PO Q8H 7 Days Qty: 21 0RF Follow-up/Referrals: PHYSICIAN NOT ON STAFF,NONSTAFF [Primary Care Provider] - 1 Week
== END 2024-08-10 18:28 | disposition home or self-care (01) ==
PROVIDERS: Emergency Provider Emergency Medicine
DX: R51.9 Headache, unspecified (principal); R20.2 Paresthesia of skin; R10.13 Epigastric pain; E78.5 Hyperlipidemia, unspecified; I10 Essential (primary) hypertension; K21.9 Gastro-esophageal reflux disease without esophagitis; F41.9 Anxiety disorder, unspecified; F32.A Depression, unspecified
CPT/HCPCS: 36415; 70450; 80053; 81001; 83690; 85025; 87086; 96374; 99284; J1885